=== PATIENT | female | born 1955 | race Caucasian/White ===

== ENCOUNTER → 2024-07-15 | Outpatient (CLI) | payer SELFPAY ==
--- NOTE | 2024-07-15 06:52 | CT_ITS ---
CT angiogram of the abdominal aorta with bilateral lower extremity runoff with 3-dimensional reconstructions, with MIP reconstructions Clinical history: LLE PAD, possible atheroembolic event Technique: Multiple helical CT images were obtained from the domes the diaphragms to level of feet after intravenous administration of iodinated contrast with transaxial, coronal and sagittal multiplanar reconstructions. On a separate workstation, 3-dimensional reconstructions were obtained of the arterial vasculature using volume rendering technique and maximal intensity projection technique as per departmental protocol. The protocol utilizes one or more of the following dose reduction techniques: automated exposure control, adjustment of mA and/or kV according to patient size,and/or use of iterative reconstruction technique. RADIATION DOSAGE (If Supplied By Facility): CTDIvol = ( 6.27 ) mGy, DLP = ( 923.06 ) mGycm COMPARISON: No relevant prior comparison study available FINDINGS: LOWER CHEST: Lung bases are clear. No cardiomegaly or pericardial effusion. LIVER: The liver is normal in size, shape, and attenuation. No focal mass. GALLBLADDER AND BILIARY TREE: The gallbladder is normally distended. No gallstones. No gallbladder wall thickening or edema. No pericholecystic fluid. No intra- or extrahepatic biliary ductal dilation. PANCREAS: No focal cystic or solid mass. SPLEEN: Normal size without focal cystic or solid mass. ADRENAL GLANDS: No nodules. KIDNEYS AND URETERS: Normal renal size and position. No hydronephrosis or nephrolithiasis. PERITONEUM: No ascites or free air. No other fluid collection. BOWEL: The stomach is unremarkable. Normal caliber small bowel. There is no obstruction. No colonic wall thickening or inflammation. No evidence of acute appendicitis. LYMPH NODES: No enlarged mesenteric or retroperitoneal lymph nodes. URINARY BLADDER: Unremarkable. REPRODUCTIVE ORGANS: No pelvic masses. ABDOMINAL WALL: No discrete abdominal or pelvic wall hernia. Focal lipoma along the right lower chest/upper abdominal wall laterally. This measures 4.1 x 1.5 x 5.7 cm. This overlies the lateral aspect of the right 10th rib. No concerning features. BONES: No lytic or blastic abnormality. Degenerative change throughout the visualized spine. Mild degenerative changes of the hips. Alignment maintained throughout the lower extremities. Degenerative changes at both feet at the midfoot and first metatarsophalangeal joints. There is soft tissue swelling of the lower legs bilaterally, right greater than left. VASCULAR STRUCTURES: There appears to be good opacification and patency of the visualized abdominal aorta. Mild atherosclerotic calcification. There appears to be good opacification and patency of the celiac trunk, superior mesenteric artery. Mild calcification seen at the origin of the celiac axis. There are 2 right and 2 left renal arteries which are patent.. There appears to be good opacification and patency noted of the inferior mesenteric artery. ARTERIAL STRUCTURES OF THE RIGHT LOWER EXTREMITY: Common iliac artery: Appears patent with good opacification. Mild atherosclerotic calcification. External iliac artery: The vessel is patent with focal moderate stenosis along the course.. Internal iliac arteries: Appears patent with good opacification. Moderate atherosclerotic calcification throughout. Common femoral artery: Appears patent with good opacification. Superficial femoral arteries: Appear patent with good opacification. Mild luminal irregularity along the course of the vessel with mild stenosis seen at the distal aspect. Popliteal artery: Appears patent with good opacification. Anterior tibial artery: The vessel is patent throughout the course with multifocal areas of moderate stenosis, most prominent distally.. Posterior tibial artery: The vessel is not opacified at its proximal extent. There is reconstitution of opacification at the level of the distal tibia, extending into the ankle and foot. History opacification appears supplied by a branch from the peroneal artery distally.. Peroneal artery: Appears patent with opacification. ARTERIAL STRUCTURES OF THE LEFT LOWER EXTREMITY: Common iliac artery: Appears patent with good opacification. Moderate atherosclerotic disease with mild stenosis noted. External iliac artery: Appears patent with good opacification. Internal iliac arteries: Appears patent with good opacification. Common femoral artery: Appears patent with good opacification. Superficial femoral arteries: Appear patent with good opacification. There is focal moderate stenosis near the origin of the vessel. Mild luminal irregularity throughout the remainder of the course with multifocal mild stenosis. Popliteal artery: The vessel is patent with focal severe stenosis as seen on series 2 image 187.. Anterior tibial artery: Appears patent with good opacification. Mild luminal irregularity throughout the course with up to mild stenosis at multiple levels. Posterior tibial artery: Not opacified.. Peroneal artery: Not opacified at the origin. Reconstitution of flow at the mid aspect of the lower leg extending to the ankle.. CT/CTA Abd w/Runoff W/WO Contrast IMPRESSION: Bilateral vascular disease. On the right there is moderate stenosis of the external iliac artery. Mild stenosis throughout the superficial femoral artery. Moderate stenosis of the anterior tibial artery distally. Nonopacification of the posterior tibial artery at the proximal aspect with distal reconstitution. On the left there is moderate stenosis at the origin of the superficial femoral artery. Severe popliteal artery stenosis. Nonopacification of the posterior tibial artery throughout its course. Electronically Signed: Tee Jimenez MD at 8:37 EDT ,
[2024-07-15 07:18] LABS: CREATININE FINGERSTICK < 1.0 mg/dL (0.55-1.02); EGFR FINGERSTICK > 60.0000 mL/min (>60)
== END | disposition home or self-care (01) ==
PROVIDERS: PCP Nurse Practitioner Adult Health; Referring Provider Physician Assistant; Visit Provider Physician Assistant
DX: I73.9 Peripheral vascular disease, unspecified (principal)
CPT/HCPCS: 75635; Q9967

== ENCOUNTER 2024-10-03 15:47 | Inpatient (IN) | payer SELFPAY ==
[2024-10-03] VITALS (15 sets, daily range): BP systolic 88–147; BP diastolic 59–110; PULSE 96–179; RESP 13–27; TEMP 36.3–37.2; O2SAT 88–99; BMI 19.1; BMI 23.3; BMI 18.6
--- NOTE | 2024-10-03 16:14 | EKG12_ITS ---
Test Reason : Blood Pressure : */* mmHG Vent. Rate : 160 BPM Atrial Rate : * BPM P-R Int : * ms QRS Dur : 74 ms QT Int : 262 ms P-R-T Axes : * -14 125 degrees QTcB Int : 427 ms Critical Test Result: High HR Atrial fibrillation with rapid ventricular response Minimal voltage criteria for LVH, may be normal variant ( Sung product ) ST & T wave abnormality, consider lateral ischemia Abnormal ECG Confirmed by MAILE BERRIOS, MARTHA ([id number]), publications editor TINY ARRIAGA ([id number]) on 10/04/2024 1:51:01 PM Referred By: Confirmed By: MARTHA GR MD
--- NOTE | 2024-10-03 16:17 | ED.VIS.DYS ---
HPI History of Present Illness Chief Complaint: Shortness of Breath Informant: patient and EMS Narrative Narrative: 69-year-old female is felt short of breath with light activities today. She states her bigger issue is wounds on both of her feet and legs, worse on the left. She has some numbness, they have been seeping for the last few days and the pain is gotten worse, but they have been present for over a year and she has been told by the wound center that they are probably vascular ulcers. She has an appointment with vascular surgery here at [place] for the first time on October 18 but has not seen them yet. She thinks maybe she has Raynaud's with regards to her hands and feet they get cold and blue easily. She is a smoker states she has been trying to quit using nicotine patches. [facility] Medical History Mitral valve prolapse Home Medications ?Medication ?Instructions ?Recorded ?Last Taken ?Type aspirin 325 mg tablet 325 mg PO QDAY 06/24/24 Unknown History atenolol 50 mg tablet 50 mg PO QDAY 06/24/24 Unknown History cyclobenzaprine 10 mg tablet 10 mg PO TID PRN muscle spasm 06/24/24 Unknown History sulfamethoxazole 800 1 tab PO DAILY PRN prevent uti 06/24/24 Unknown History mg-trimethoprim 160 mg tablet Allergy/AdvReac Type Severity Reaction Status Date / Time latex Allergy Intermediate Rash Verified 10/03/24 15:48 Penicillins Allergy Intermediate Rash Verified 10/03/24 15:48 Family History (Updated 06/24/24 @ 10:19 by ALEJANDRO Gutierrez) Other Hypertension Surgical History History of tonsillectomy H/O section Social History adopted: Yes Smoking Status: Current every day smoker tobacco type: cigarettes quit status: has quit before alcohol intake: current details: glass of wine with supper daily substance use type: does not use ROS ROS ED Constitutional Constitutional ED: Denies chills or fever(s) Eyes Eyes: Denies change in vision or diplopia ENT ENT ED: Reports rhinorrhea and other Details: Sinus congestion ; Denies sinus pain or sore throat Cardiovascular Cardiovascular: Reports other Details: Occasional palpitations related to my mitral valve prolapse no worse today ; Denies chest pain or orthopnea Respiratory/Chest Respiratory/Chest: Reports cough, dyspnea and dyspnea on exertion; Denies orthopnea or sputum Gastrointestinal Gastrointestinal: Denies abdominal pain, diarrhea, nausea or vomiting Genitourinary Genitourinary ED: Denies dysuria or hematuria Musculoskeletal Musculoskeletal: Denies back pain or neck pain Integumentary Reports as per HPI and wounds Neurologic Neurologic: Reports paresthesias RLE and LLE; Denies headache(s) or weakness EXAM Physical Exam Const Vital Signs: 10/03/24 15:48 10/03/24 15:53 10/03/24 15:53 Temperature 98.3 F 98.3 F Temperature Source Oral Oral Pulse Rate 166 H 179 H Respiratory Rate 26 H 27 H Respiratory Effort Short of Breath Respiratory Depth Shallow Respiratory Pattern Tachypnea Blood Pressure 147/110 H 147/110 H Blood Pressure Mean 122 122 Pulse Ox 99 94 Oxygen Delivery Method Room Air Room Air Room Air Oxygen Flow Rate (L/min) 10/03/24 16:20 10/03/24 16:53 10/03/24 18:00 Temperature 98.5 F Temperature Source Oral Pulse Rate 132 H 135 H Respiratory Rate 15 18 Respiratory Effort Respiratory Depth Respiratory Pattern Blood Pressure 125/88 H 120/69 Blood Pressure Mean 100 86 Pulse Ox 95 94 95 Oxygen Delivery Method Nasal Cannula Room Air Oxygen Flow Rate (L/min) 2 10/03/24 18:45 10/03/24 18:54 Temperature 98.9 F 98.9 F Temperature Source Oral Pulse Rate 124 H 129 H Respiratory Rate 25 H 18 Respiratory Effort Respiratory Depth Respiratory Pattern Blood Pressure 124/69 H 98/79 Blood Pressure Mean 87 85 Pulse Ox 95 91 Oxygen Delivery Method Oxygen Flow Rate (L/min) Positive well nourished and well developed General Appearance ED: well developed and NAD HEENT Reports moist mucous membranes normocephalic and atraumatic Eyes PERRL and EOMs intact bilaterally Neck full ROM, no lymphadenopathy, supple and no JVD Resp normal respiratory effort Resp Narrative: Diminished throughout otherwise clear Cardio Cardio Narrative: 2+ palpable pulses both radials and femorals. Not able to palpate popliteals or feet bilaterally. Rate: tachycardic Rhythm: abnormal rhythm irregularly irregular GI non-tender and non-distended Auscultation: normoactive bowel sounds Palpation: soft Back/Spine no CVA tenderness General Back: other FROM Extremity General Extremety ED: Yes pulses abnormal and tenderness; Negative for edema General Extremity: pulses abnormal; Negative for edema Neuro oriented x3 and CN's II-XII intact bilaterally Neuro Narrative: Decreased sensation both feet, symmetrically Sensorium / Orientation: awake and alert Motor Exam: strength 5/5 throughout Psych mental status grossly normal Skin Skin Narrative: Severe wounds left lower leg more medially all the way into the calf as well as the foot with some pallor of some of the toes and delayed cap refill. Wounds of the right foot are not as severe but similar appearing. There is nothing so deep that there are subcutaneous structures exposed. Some of the wounds on the left foot are seeping serosanguineous fluid. Sepsis Attestation Sepsis Alert: Yes Sepsis Attestation: Agree w/Sepsis Date exam was performed: 10/03/24 Time exam was performed: 17:30 Possible Source of Sepsis: Skin/soft tissue Sepsis Organ Dysfunction Criteria Present: SBP decrease of more than 40 mmHg and Lactic Acid > 2 mmol/L Fluid Resuscitation Fluid resuscitation indicated?: Yes Fluid Resuscitation ordered: 30 ml/kg fluid bolus ordered (including initial 1L IVFB started by EMS) Sepsis Note Date exam was performed: 10/03/24 Time exam was performed: 18:56 Sepsis Attestation: Sepsis re-evaluation was performed (MAP 85 w/ systolic 98, improved clinically, HR lower on cardizem gtt; other than feet which appear chronically ischemic, cap refill is < 2 sec on extremities, keenly alert; believe low BP 98/79 due to cardizem gtt and not septic shock.responded appropriately to IVF, vasopressors not indicated now.) MDM MDM MDM Narrative Medical decision making narrative: Patient does appear to have secondary infection of what probably are vascular wounds especially of her left lower extremity, it is possible she is septic although clinically she appears relatively well, but she is in A-fib with RVR which was previously unknown to her and she does not have symptoms from the heart rate specifically. In addition to IV fluids, I am giving her some rate control in addition to empiric antibiotics to cover the possibility of MRSA since she has seeping from one of the feet without an obvious abscess, but it could be a purulent infection, as well as the possibility of toxic shock so adding Vancomycin & clindamycin per the sepsis protocol. She has cool cyanosis of many of her fingers and a couple of small wounds that do not appear to be acutely infected, trying to heal, and giving this in her legs, my suspicion is that she has Buerger's disease. She is a heavy smoker. Discussed with vascular Dr. Mancilla, we both saw that she had CT of the abdomen/pelvis with runoffs into the lower extremities in June, consistent with this as well. He recommends repeating that. In the meantime, chest x-ray 1 view on my interpretation negative for pneumonia. Right foot x-ray 3 views of my interpretation no obvious subcutaneous air or osteomyelitis. Same with the left foot on my interpretation. The left lower leg 2 views on my interpretation negative for acute bony involvement or subcutaneous emphysema. Patient was given IV fluids, her lactate is elevated, this could be due to sepsis or ischemia in the legs. Her heart rate did improve with Cardizem and IV fluids, blood pressure did drop 40 points to the 90s transiently, but on repeat it is back up to 125/88. Therefore I do not think she needs to be on pressors but starting her on Cardizem drip. I reviewed the CTA lower extremity imaging. On my interpretation there is flow all the way to the feet on both sides. Lab Data Attestation: I reviewed the patient's lab results. Labs: Laboratory Results - last 24 hr 10/03/24 10/03/24 15:57 16:37 WBC 16.6 H RBC 4.63 Hgb 14.7 Hct 42.2 MCV 91.1 MCH 31.7 MCHC 34.8 RDW Std Deviation 51.5 H RDW Coeff of Lisbeth 15.8 H Plt Count 324 MPV 9.9 Immature Gran % (Auto) 1.400 H Neut % (Auto) 85.6 H Lymph % (Auto) 4.2 L [place] % (Auto) 8.2 Eos % (Auto) 0.2 Baso % (Auto) 0.4 Absolute Neuts (auto) 14.2 H Absolute Lymphs (auto) 0.70 L Nucleated RBC % 0 PT 13.3 INR 1.0 APTT 28.2 Sodium 120 L Potassium 5.7 H Chloride 87 L Carbon Dioxide 21.0 Anion Gap 12 BUN 29 H Creatinine 1.26 H Estim Creat Clear Calc 32.46 Est GFR (MDRD) Af Amer 54 L Est GFR (MDRD) Non-Af 45 L BUN/Creatinine Ratio 23.0 H Glucose 109 H Lactic Acid 2.3 H* Calcium 9.5 Total Bilirubin 0.80 AST 36 ALT 38 Alkaline Phosphatase 196 H Total Creatine Kinase 129 Troponin I High Sens 55 H Total Protein 6.4 Albumin 2.6 L Globulin 3.8 Albumin/Globulin Ratio 0.7 L Urine Color Brown Urine Clarity Cloudy Urine pH 5.0 Ur Specific [place] 1.020 Urine Protein 15 H Urine Glucose (UA) 50 H Urine Ketones 5 H Urine Occult Blood 10 H Urine Nitrite Negative Urine Bilirubin 1 H Urine Urobilinogen 1 H Ur Leukocyte Esterase 25 H Urine RBC 0-5 SEEN Urine WBC 0-5 SEEN Ur Squamous Epith Cells 0-5 SEEN Urine Bacteria RARE Urine Mucus 0 SEEN Radiography Diagnostic Testing: Clinical Impression(s) from Imaging Studies Chest X-Ray 10/03/24 16:45 IMPRESSION: No definite acute or significant abnormality seen. Electronically Signed: Trevor England MD at 17:05 EST Reading Location ID and State: [facility] / [place] , Service support , Foot X-Ray 10/03/24 16:45 IMPRESSION: No acute fracture, dislocation, or focal destructive lesion of the bones. Electronically Signed: Trevor England MD at 17:09 EST Reading Location ID and State: [facility] / [place] , Service support , Foot X-Ray 10/03/24 16:45 IMPRESSION: No acute fracture, dislocation, or focal destructive lesion. There is dorsal soft tissue swelling. Electronically Signed: Trevor England MD at 17:11 EST Reading Location ID and State: [facility] / [place] , Service support , Tibia/Fibula X-Ray 10/03/24 16:45 IMPRESSION: Normal x-ray examination of the tibia and fibula. Electronically Signed: Trevor England MD at 17:13 EST Reading Location ID and State: [facility] / [place] , Service support , Rhythm Strip Rhythm Strip: A-fib Rate: 165 Ectopy: None EKG Initial EKG: Attestation: I personally reviewed and interpreted this EKG as follows: Interpretation: Atrial Fibrillation (w/ RVR) and Non-Specific ST Changes Prior EKG tracings: not available for review Prior: No Prior Management Discussion w/another healthcare provider: Hospitalist and Boy'S Adviser (vascular - [place]) Critical Care Time Critical Care Time: Yes Critical care time (excluding procedures): 30-74 minutes (35 min), Including time spent:, Discussing w/Patient &/or Family/Real Estate Broker, Discussing w/Consultants, Arranging Admission or Transfer and Performing Direct Patient Care at Bedside Discharge Plan Dx/Rx/DC Orders Clinical Impression: Atrial fibrillation with RVR, Sepsis, Wound infection, Peripheral vascular disease of lower extremity with ulceration, Tobacco abuse Disposition Disposition: Acute Care Hospital [facility]
[2024-10-03] MEDS: dilTIAZem 25 MG/5 ML Vial 20 MG IV BOLUS (16:22)
[2024-10-03] MEDS: Ondansetron 4 MG/2 ML Vial IV (16:22)
[2024-10-03] MEDS: 0.9% Normal Saline (1000mL) 1,000 ML 999 ML IV ×2 (16:22→17:41)
[2024-10-03] MEDS: Morphine 4 MG/ML Syringe IV (16:22)
[2024-10-03 16:32] LABS: Absolute Neutrophil Count 14.2 X10^3/uL (2.0-7.7); Basophil# 0.06 X10^3/uL; Basophil% 0.4 % (0-1); Eosinophil# 0.03 X10^3/uL; Eosinophils% 0.2 % (0-5); Hematocrit 42.2 % (37-47); Hemoglobin 14.7 g/dL (12.0-15.0); Lymphocyte % 4.2 % (19-41); Mean Corp Hgb Conc 34.8 g/dL (32-36); Mean Corpuscular Hgb 31.7 pg (27.0-32.0); Mean Corpuscular Volume 91.1 fL (81-99); Mean Platelet Vol. 9.9 fl (6.2-12.0); Monocyte# 1.37 X10^3/uL; Monocyte% 8.2 % (0-10); NRBC Flagged by Analyzer 0 % (0-5); Neutrophil # 14.23 X10^3/uL (2.7-7.7); Neutrophil % 85.6 % (47-70); Platelet Count 324 K/mm3 (150-450); RBC Distribution Width CV 15.8 % (11.6-14.6); RBC Distribution Width SD 51.5 fl (35.1-43.9); Red Blood Count 4.63 M/mm3 (4.2-5.4); White Blood Count 16.6 K/mm3 (4.4-11.0)
[2024-10-03 16:40] LABS: Partial Thromboplast Time 28.2 Seconds (24.1-36.2); Prothrombin Time (Protime)PT. 13.3 SECONDS (11.7-14.9)
[2024-10-03 16:43] LABS: Mucous, Urine 0 SEEN /hpf (<or=2+)
--- NOTE | 2024-10-03 16:45 | RAD_ITS ---
STUDY: X-RAY - RIGHT FOOT CLINICAL: Female, 69 years old. pain/infection TECHNIQUE: 3 view(s) of the foot. COMPARISON: None. FINDINGS: Normal talus, calcaneus, and tarsal bones. Normal visualized subtalar, talonavicular, calcaneocuboid, tarsal and tarsometatarsal articulations. Normal metatarsi. There is degenerative arthrosis of the metatarsophalangeal joint of the hallux . Normal tibial and fibular sesamoid bones. Normal interphalangeal joint of the great toe. Normal phalanges of the great toe. Normal second through fifth metatarsophalangeal joints. Normal interphalangeal joints and phalanges of the lesser toes. There is non-specific soft tissue swelling of the foot. There is no demonstrated fracture. RAD/Foot min 3 Views IMPRESSION: No acute fracture, dislocation, or focal destructive lesion of the bones. Electronically Signed: Trevor England MD at 17:09 EST ,
--- NOTE | 2024-10-03 16:45 | RAD_ITS ---
STUDY: X-RAY CHEST REASON FOR EXAM: Female, 69 years old. sob, cough TECHNIQUE: Single AP portable view of the chest. COMPARISON: None. FINDINGS: The lungs are clear and expanded. There is no demonstrated pleural abnormality. There is borderline cardiomegaly. Normal mediastinum and jayla. Normal visualized pulmonary arteries. Normal visualized aortic arch and descending thoracic aorta. There is mild dextroscoliosis of the thoracic spine. Normal visualized ribs, clavicles, and shoulders. There is no demonstrated abnormality of the visualized soft tissue structures of the upper abdomen. RAD/Chest 1 View (Portable) IMPRESSION: No definite acute or significant abnormality seen. Electronically Signed: Trevor England MD at 17:05 EST ,
--- NOTE | 2024-10-03 16:45 | RAD_ITS ---
STUDY: X-RAY - LEFT FOOT CLINICAL: Female, 69 years old. PAIN/INFECTION TECHNIQUE: 3 view(s) of the foot. COMPARISON: None. FINDINGS: Normal talus, calcaneus, and tarsal bones. Degenerative changes of the visualized subtalar, talonavicular, calcaneocuboid, tarsal and tarsometatarsal articulations. Normal metatarsi. There is degenerative arthrosis of the metatarsophalangeal joint of the hallux . Normal tibial and fibular sesamoid bones. Normal interphalangeal joint of the great toe. Normal phalanges of the great toe. Normal second through fifth metatarsophalangeal joints. Normal interphalangeal joints and phalanges of the lesser toes. There is non-specific soft tissue swelling of the foot. There is no demonstrated fracture. RAD/Foot min 3 Views IMPRESSION: No acute fracture, dislocation, or focal destructive lesion. There is dorsal soft tissue swelling. Electronically Signed: Trevor England MD at 17:11 EST ,
--- NOTE | 2024-10-03 16:45 | RAD_ITS ---
STUDY: X-RAY - LEFT TIBIA AND FIBULA REASON FOR EXAM: Female, 69 years old. pain/infection TECHNIQUE: 2 view(s) of the tibia and fibula were obtained. COMPARISON: None. FINDINGS: Normal visualized tibia. Normal visualized fibula. There is no demonstrated acute fracture. The soft tissue structures are unremarkable. RAD/Tibia & Fibula 2 Views IMPRESSION: Normal x-ray examination of the tibia and fibula. Electronically Signed: Trevor England MD at 17:13 EST ,
[2024-10-03 16:54] LABS: Color, Urine Brown (Yellow); Glucose, Dipstick 50 mg/dl (Normal); Ketone-Dipstick 5 mg/dl (Negative); Leukocyte Esterase-Dipstick 25 /ul (Negative); Nitrite-Dipstick Negative (Negative); Occult Blood-Urine 10 /ul (Negative); Protein-Dipstick 15 mg/dl (Negative); Urine Clarity Cloudy (Clear); Urine Urobilinogen 1 mg/dl (Normal)
[2024-10-03] MEDS: Cefazolin 2 GM in Syringe IV (16:57)
[2024-10-03] MEDS: Clindamycin 900 MG/50 ML BAG 75 MG IV (16:57)
[2024-10-03] MEDS: Vancomycin HCl 1,250 MG in 0.9% Normal Saline (250mL Bag) 250 ML 167 MG IV (16:58)
[2024-10-03 16:59] LABS: ALB/GLOB Ratio 0.7 RATIO (0.9-2.4); AST(SGOT) 36 U/L (15-37); Alanine Aminotransfer ALT/SGPT 38 U/L (13-56); Albumin, Serum 2.6 g/dL (3.2-5.0); Alkaline Phosphatase 196 U/L (45-117); Anion Gap 12 (5-15); BUN 29 mg/dL (7-18); CPK Total, Creatine Kinase 129 U/L (26-192); Calcium,Total 9.5 mg/dL (8.5-10.1); Chloride 87 mmol/L (98-107); Creatinine, Serum 1.26 mg/dL (0.55-1.02); EST Glomerular Filtration Rate 45 mL/min (>60); Est Glom Filt Rate - Afr Amer 54 mL/min (>60); Estimated Creatinine Clearance 32.46 ml/min; Globulin 3.8 g/dL (2.2-4.2); Glucose 109 mg/dL (74-106); Lactic Acid 2.3 mmol/L (0.4-1.9); Potassium 5.7 mmol/L (3.5-5.1); Protein, Total 6.4 g/dL (6.4-8.2); Sodium Level 120 mmol/L (136-145); Troponin-I HS 55 pg/mL (3.0-54.0)
[2024-10-03 17:13] LABS: Urine Bilirubin Dipstick 1 mg/dL (Negative)
[2024-10-03 17:17] LABS: Red Blood Cells-Urine 0-5 SEEN /hpf (0-5); Squamous Epithelial Cells - UA 0-5 SEEN /hpf (5-10); White Blood Cells 0-5 SEEN /hpf (0-5)
[2024-10-03 17:18] LABS: Bacteria RARE /hpf (None Seen)
--- NOTE | 2024-10-03 17:50 | CT_ITS ---
STUDY: CTA OF THE LOWER EXTREMITY PATIENT DEMOGRAPHICS: Female, 69 years old. REASON FOR EXAM: BLE pain, wounds, ischemia TECHNIQUE: Axial CT angiography multi-detector data acquisition was obtained from the to the following intravenous administration of IV 75mL [id number]-[id number]. Axial images and MIP images were reconstructed from the axial data set. Post-processing of the angiographic images was performed, with multiplanar reformation and 3D reconstruction. The protocol utilizes one or more of the following dose reduction techniques: automated exposure control, adjustment of mA and/or kV according to patient size,and/or use of iterative reconstruction technique. RADIATION DOSAGE (If Supplied By Facility): CTDIvol = ( 8.42 ) mGy, DLP = ( 845.37 ) mGycm TECHNICAL LIMITATIONS: None. COMPARISON: July 15, 2024 Descriptors of Narrowing: None (0%) Mild (< 50%) Moderate (50-70%) Severe (70-90%) Subtotal/Total Occlusion (90-100%) Non-Evaluable (technically non-diagnostic) FINDINGS: Diffusely calcified abdominal aorta without hemodynamically significant stenosis or aneurysm. Patent major abdominal arteries. Patent bilateral common iliac arteries with atherosclerotic calcifications. Mildly focal intraluminal thrombus in the left common iliac artery. Stable moderate right external iliac stenosis. Right common iliac artery: No significant narrowing. Right external iliac artery: No significant narrowing. Right internal iliac artery: No significant narrowing. Left common iliac artery: No significant narrowing. Left external iliac artery: No significant narrowing. Left internal iliac artery: No significant narrowing. Right common femoral artery: No significant narrowing. Right profundus femoris: No significant narrowing. Right superficial femoral: No significant narrowing. Right popliteal artery: No significant narrowing. Right tibioperoneal trunk: No significant narrowing. Right anterior tibial artery: Mild stenosis proximally. Right posterior tibial artery: Occluded distally with reconstitution just above the ankle. Right peroneal artery: No significant narrowing. Left common femoral artery: No significant narrowing. Left profundus femoris: No significant narrowing. Left superficial femoral: Stable moderate to severe distal luminal narrowing. Left popliteal artery: Severe stenosis. Left tibioperoneal trunk: Occluded. Left anterior tibial artery: No significant narrowing. Left posterior tibial artery: Occluded. Left peroneal artery: Occluded proximally with reconstitution at the mid calf level. Urinary bladder: Normal in appearance. Gastrointestinal: No gastric abnormality is identified. The small bowel is normal in caliber. The colon is normal in caliber. There is no free fluid or free air in the abdomen or pelvis. Lymph nodes: No significantly enlarged lymph nodes are seen. Bones: No suspicious osseous findings. Overlying soft tissues: Unremarkable. CT/CTA Abd w/Runoff W/WO Contrast IMPRESSION: No evidence of significant stenosis. Electronically Signed: Zhou Alan DO at 19:14 [facility] ,
--- NOTE | 2024-10-03 18:32 | ED.RN ---
CALLED, UPDATE PROVIDED.
--- NOTE | 2024-10-03 18:43 | ECHOD_ITS ---
Reason For Study: Afib, Aflutter Procedure This was a 2D Doppler, Color Flow transthoracic echocardiogram. Exam performed portable in patient room. Left Ventricle Normal LV size. The estimated ejection fraction is 62 %. No regional wall motion abnormalities noted. Right Ventricle Normal RV size. Normal systolic function. Atria The left atrium is moderately enlarged. Normal right atrium. Mitral Valve There is moderate to severe mitral annular calcification. Mild (1+) eccentric mitral valve insufficiency. Tricuspid Valve Normal tricuspid valve. Mild tricuspid valve insufficiency. Pulmonary artery systolic pressure is 35 mmHg. Aortic Valve Trisinus/trileaflet aortic valve. Pulmonic Valve Normal pulmonic valve. Great Vessels Normal aortic root. The pulmonary artery is normal size. Inferior vena cava collapse with respiration. Pericardium/Pleural No pericardial effusion. MMode/2D Measurements & Calculations LVIDd: 3.7 cm IVSd: 1.1 cm asc Aorta Diam: 3.2 cm LVIDs: 2.0 cm LVPWd: 1.2 cm FS: 46.7 % LAV(MOD-bp): 88.6 ml LVAd ap4: 12.4 cm2 SV(MOD-sp4): 16.9 ml LAV(MOD-bp) Indexed: 60.2 ml/m2 LVLd ap4: 4.6 cm SI(MOD-sp4): 11.5 ml/m2 LAV(MOD-sp2): 78.7 ml EDV(MOD-sp4): 27.6 ml LAV(MOD-sp4): 96.7 ml EDV(sp4-el): 28.5 ml LVAs ap4: 7.1 cm2 LVLs ap4: 4.1 cm ESV(MOD-sp4): 10.7 ml ESV(sp4-el): 10.7 ml EF(MOD-sp4): 61.4 % EF(sp4-el): 62.5 % SV(sp4-el): 17.9 ml LA A4 area: 27.2 cm2 LA dimension(2D): 5.6 cm RA A4 area: 15.8 cm2 TAPSE: 1.8 cm Doppler Measurements & Calculations MV E max jc: 111.8 cm/sec Lat Peak E' Jc: 7.6 cm/sec Med Peak E' Jc: 6.0 cm/sec E/E' lat: 14.7 E/E' med: 18.5 Ao V2 max: 165.6 cm/sec LV V1 max: 124.0 cm/sec PA V2 max: 88.3 cm/sec Ao max P.1 mmHg LV V1 max P.3 mmHg Ao V2 mean: 120.2 cm/sec Ao mean P.5 mmHg Ao V2 VTI: 22.5 cm TR max jc: 281.8 cm/sec TR max P.8 mmHg ECHO/Echo Complete Interpretation Summary Normal LV size. The estimated ejection fraction is 62 %. No regional wall motion abnormalities noted. Echogenic material noted at the base of the ventricular septum mobile measuring at least 0.5 x 0.4 cm and a vegetation cannot be completely excluded Ordering Physician: Ruth Ann Hi Referring Physician: Fei Weaver Performed By: Yamilka Paniagua, JUDI, RVT
--- NOTE | 2024-10-03 18:44 | HP.PCM.HOS_ITS ---
HPI - General General Date of Admission: 10/03/24 Date of Service: 10/03/24 Chief Complaint: Shortness of breath HPI Narrative MICHELINE CLEMONS, is a 69 F who presented to the emergency department at [facility] with a chief complaint of shortness of breath. Patient reported on presentation that she felt short of breath with light activities today but reported her bigger issue is wounds on both of her legs and feet worse on the left than the right. Patient states she has had wounds for some time however they have been slowly worsening. It appears that she saw vascular surgery on 06/24/2024 at which time she reported that the wound started about 3 months ago. At that time she was having worsening pain and redness/purple discoloration of her foot on the left side and then redness progressing up her left leg. She had been seen by urgent care and was diagnosed with cellulitis and then treated with oral antibiotics which resolved the redness proximally. Her PCP then prescribed another round of Keflex which she was taking at that time of evaluation. She reported significant hypersensitivity at that time and was still smoking at least a pack of cigarettes daily. She also reported a possible history of paroxysmal atrial fibrillation. At that time further investigation was recommended with a CTA of the abdomen pelvis with runoff. This was ordered however patient never followed up. She was also started on Pletal, rosuvastatin and instructed to continue to take aspirin and Plavix. She was refilled with tramadol at that time for pain. Unfortunately she was lost to follow-up. At the presentation, she reports significant pain in bilateral lower extremities left greater than right with significant wounds and hypersensitivity. When I saw, her she denied any shortness of breath, nausea, vomiting, diarrhea, or chest pain. She did indicate she was trying to decrease her tobacco use and per discussion does drink about 8 ounces of alcohol daily. She states she is gone several days without drinking and never had any withdrawal symptoms. She states overall her p.o. intake has been significantly lower than typical for her. Vital signs on presentation demonstrated a temperature of 98.3, heart rate 166 and was noted to be A-fib with RVR, blood pressure 147/110, respiratory rate was 26 and pulse ox was 99% on room air. CBC shows a significant leukocytosis with a white count of 16.6 and a left shift having an 85.6% neutrophilia. Coags were overtly unremarkable. Her chemistry panel showed a sodium of 120, potassium 5.7, chloride 87, BUN was 29 with a serum creatinine of 1.26 (baseline unknown) glucose was 109. Lactic acid was 2.3. Liver functions were unremarkable. Initial troponin was 55. Imaging of the foot and ankle was unremarkable other than soft tissue abnormalities. Chest x-ray showed no significant acute abnormality. CTA with runoff showed multiple areas with occlusion or stenosis on the left side with less significant disease on the right. EKG was A-fib with RVR but no signs of acute ischemia. [facility] Medical History (Updated 10/03/24 @ 20:[address] Ruth Ann Hi, DO) Alcohol abuse Peripheral vascular disease Tobacco use Mitral valve prolapse Home Medications ?Medication ?Instructions ?Recorded ?Last Taken ?Type aspirin 325 mg tablet 325 mg PO QDAY 06/24/24 Unknown History atenolol 50 mg tablet 50 mg PO QDAY 06/24/24 Unknown History cyclobenzaprine 10 mg tablet 10 mg PO TID PRN muscle spasm 06/24/24 Unknown History sulfamethoxazole 800 1 tab PO DAILY PRN prevent uti 06/24/24 Unknown History mg-trimethoprim 160 mg tablet Allergy/AdvReac Type Severity Reaction Status Date / Time latex Allergy Intermediate Rash Verified 10/03/24 15:48 Penicillins Allergy Intermediate Rash Verified 10/03/24 15:48 Family History (Updated 06/24/24 @ 10:19 by ALEJANDRO Gutierrez) Other Hypertension Surgical History History of tonsillectomy H/O section Social History adopted: Yes Smoking Status: Current every day smoker tobacco type: cigarettes quit status: has quit before alcohol intake: current details: glass of wine with supper daily substance use type: does not use ROS Constitutional Constitutional: Reports change in weight, fatigue and weakness; Denies anorexia, chills, fever(s), malaise, night sweats or other Eyes Eyes: Denies blurry vision, change in eye color, change in vision, discharge from eye(s), double vision, erythema, eye pain, loss of vision or other ENT HEENT: Denies abnormal hearing, dysphagia, ear pain, epistaxis, headache(s), hearing loss, nasal congestion, nasal discharge, post nasal drip, sinus pressure, sore throat or other Cardiovascular Cardiovascular: Reports palpitations and rapid heart rate; Denies chest pain, claudication, dyspnea on exertion, edema, lightheadedness, orthopnea, paroxysmal nocturnal dyspnea, syncope or other Respiratory/Chest Respiratory/Chest: Denies cough, dyspnea, excessive phlegm production, hemoptysis, productive cough, shortness of breath at rest, shortness of breath with exertion, wheezing or other Gastrointestinal Gastrointestinal: Denies abdominal pain, coffee ground emesis, constipation, diarrhea, dyspepsia, hematemesis, hematochezia, loose stools, melena, nausea, vomiting or other Genitourinary Genitourinary: Denies burning urination, difficulty urinating, dysuria, hematuria, nocturia, urinary frequency, urinary hesitancy, urinary incontinence, urinary urgency or other Musculoskeletal Musculoskeletal: Reports other Details: Bilateral lower extremity pain left greater than right ; Denies arthralgias, back pain, joint pain, joint stiffness, joint swelling, myalgias or neck pain Neurologic Neurologic: Reports paresthesias RLE and LLE Psychiatric Psychiatric: Reports anxiety and depression; Denies homicidal ideation, suicidal ideation or other Endocrine Endocrinology: Denies change in body appearance, cold intolerance, excessive sweating, heat intolerance, polydipsia, polyuria or other Hematologic/Lymphatic Hematologic/Lymphatic: Denies anemia, easy bleeding, easy bruising, lymphadenopathy or other Allergic/Immunologic Allergic/Immunologic: Denies rhinitis, hives, eczemia, asthma or other Vital Signs Vital Signs Vital Signs: 10/03/24 15:48 10/03/24 15:53 10/03/24 15:53 Temperature 98.3 F 98.3 F Temperature Source Oral Oral Pulse Rate 166 H 179 H Respiratory Rate 26 H 27 H Respiratory Effort Short of Breath Respiratory Depth Shallow Respiratory Pattern Tachypnea Blood Pressure 147/110 H 147/110 H Blood Pressure Mean 122 122 Pulse Ox 99 94 Oxygen Delivery Method Room Air Room Air Room Air Oxygen Flow Rate (L/min) 10/03/24 16:20 10/03/24 16:53 10/03/24 18:00 Temperature 98.5 F Temperature Source Oral Pulse Rate 132 H 135 H Respiratory Rate 15 18 Respiratory Effort Respiratory Depth Respiratory Pattern Blood Pressure 125/88 H 120/69 Blood Pressure Mean 100 86 Pulse Ox 95 94 95 Oxygen Delivery Method Nasal Cannula Room Air Oxygen Flow Rate (L/min) 2 Weight Weight: 48.8 kg Body Mass Index (BMI) 19.1 Physical Exam Const alert, oriented x3 and average body habitus; Negative for no apparent distress, healthy appearing or well nourished Constitutional Narrative: Older, white female, lying in bed, appears malnourished, appears older than stated age, mild distress due to pain but does not appear toxic, interacts appropriately General Appearance: cooperative HEENT normocephalic, head/scalp atraumatic and hearing grossly normal bilaterally HEENT Narrative: Mucous membranes are dry, dentition is poor, Mallampati 2, no thrush Eyes PERRL, EOMs intact bilaterally and conjunctivae normal Eyes Narrative: No scleral icterus Neck no lymphadenopathy and supple Neck Narrative: Trachea midline, no thyroid enlargement Resp normal respiratory effort, no retractions, no use of accessory muscles and No clear to auscultation bilaterally Resp Narrative: Diffusely diminished with scattered end expiratory wheeze intermittently Auscultation: wheezes; Negative for rales or rhonchi Cardio S1 normal heart sound, S2 normal heart sound, no murmurs, no rub, no gallops and no clicks Cardio Narrative: Tachycardia with irregularly irregular rhythm GI normal to inspection, nondistended, normoactive bowel sounds, soft to palpation and non-tender Extremity Extremity Narrative: Bilateral lower extremity edema left greater than right, patient with significant discoloration bilateral lower extremities left greater than right with sluggish cap refill and diminished pedal pulses bilaterally, radial pulses are 2+, no cyanosis or clubbing Skin Skin Narrative: Severe wounds left lower extremity, mild wounds right lower extremity and bilateral hands with minimal wounds noted Neuro oriented x3, moves all extremities and no focal motor deficits Neuro Narrative: Bilateral legs left greater than right with hypersensitivity Speech: speech normal Psych Psych Narrative: Very pleasant interacts appropriately and thanked me for care Mood & Affect: anxious Results Lab / Micro Data 10/03/24 15:57 10/03/24 19:06 Labs: Laboratory Results - last 24 hr 10/03/24 15:57: WBC 16.6 H, RBC 4.63, Hgb 14.7, Hct 42.2, MCV 91.1, MCH 31.7, MCHC 34.8, RDW Std Deviation 51.5 H, RDW Coeff of Lisbeth 15.8 H, Plt Count 324, MPV 9.9, Immature Gran % (Auto) 1.400 H, Neut % (Auto) 85.6 H, Lymph % (Auto) 4.2 L, [place] % (Auto) 8.2, Eos % (Auto) 0.2, Baso % (Auto) 0.4, Absolute Neuts (auto) 14.2 H, Absolute Lymphs (auto) 0.70 L, Nucleated RBC % 0, PT 13.3, INR 1.0, APTT 28.2, Sodium 120 L, Potassium 5.7 H, Chloride 87 L, Carbon Dioxide 21.0, Anion Gap 12, BUN 29 H, Creatinine 1.26 H, Estim Creat Clear Calc 32.46, Est GFR (MDRD) Af Amer 54 L, Est GFR (MDRD) Non-Af 45 L, BUN/Creatinine Ratio 23.0 H, G lucose 109 H, Lactic Acid 2.3 H*, Calcium 9.5, Total Bilirubin 0.80, AST 36, ALT 38, Alkaline Phosphatase 196 H, Total Creatine Kinase 129, Troponin I High Sens 55 H, Total Protein 6.4, Albumin 2.6 L, Globulin 3.8, Albumin/Globulin Ratio 0.7 L 10/03/24 16:37: Urine Color Brown, Urine Clarity Cloudy, Urine pH 5.0, Ur Specific Bonnie 1.020, Urine Protein 15 H, Urine Glucose (UA) 50 H, Urine Ketones 5 H, Urine Occult Blood 10 H, Urine Nitrite Negative, Urine Bilirubin 1 H, Urine Urobilinogen 1 H, Ur Leukocyte Esterase 25 H, Urine RBC 0-5 SEEN, Urine WBC 0-5 SEEN, Ur Squamous Epith Cells 0-5 SEEN, Urine Bacteria RARE, Urine Mucus 0 SEEN Rhythm Strip Rhythm Strip: A-fib Rate: 165 Ectopy: None Imaging Radiology Impression Chest X-Ray 10/03/24 16:45 IMPRESSION: No definite acute or significant abnormality seen. Electronically Signed: Trevor Englnad MD at 17:05 EST , Foot X-Ray 10/03/24 16:45 IMPRESSION: No acute fracture, dislocation, or focal destructive lesion of the bones. Electronically Signed: Trevor England MD at 17:09 EST , Foot X-Ray 10/03/24 16:45 IMPRESSION: No acute fracture, dislocation, or focal destructive lesion. There is dorsal soft tissue swelling. Electronically Signed: Trevor England MD at 17:11 EST , Tibia/Fibula X-Ray 10/03/24 16:45 IMPRESSION: Normal x-ray examination of the tibia and fibula. Electronically Signed: Trevor England MD at 17:13 EST , Assessment & Plan Assessment/Plan (1) Peripheral vascular disease of lower extremity with ulceration: (2) Wound infection: (3) Sepsis: (4) Atrial fibrillation with RVR: (5) Hyponatremia: (6) Elevated serum creatinine: (7) Hyperkalemia: (8) Lactic acidosis: (9) Elevated troponin: (10) Dehydration: (11) Leukocytosis: PLAN: Plan Sepsis secondary to bilateral lower extremity wound infection from vascular disease -Meet sepsis criteria with tachycardia, suspected JOHNATHON, lactic acidosis and source -Sepsis order set utilized -Cycle lactate per protocol -Abnormal CTA with runoff of abdomen and pelvis -Heparin drip for now -Broad-spectrum antibiotics with vancomycin and cefepime to cover MRSA and Pseudomonas -Culture wounds -MRSA PCR for wound -Blood cultures are pending -Vascular surgery consult--> case was discussed with Dr. Mancilla by the emergency department -Podiatry consult--> I discussed case with Dr. Garrett -Wound care consultation -Neurovascular checks -Currently no signs of compartment syndrome -Check CPK -UA is suggestive of possibly mild rhabdo with positive occult blood but no RBCs -Patient received 30 cc/kg body weight -Upon reevaluation blood pressure remained stable despite utilization of Cardizem drip for A-fib with RVR A-fib with RVR -There is documentation in her note with Dr. Mancilla that she may have a history of this however she is not medicated as such -Check echocardiogram -Check a.m. TSH -Continue Cardizem drip -Heparin drip started for this and the above -Will need to transition to Eliquis 5 mg p.o. twice daily when appropriate per discussion with surgical consultations Elevated serum creatinine--> possibly JOHNATHON but baseline unknown -Creatinine on presentation is 1.26 -Highly suspect this is JOHNATHON is her body habitus suggest that she should have an extremely low serum creatinine -Will hydrate and reevaluate -If no improvement may need further workup -Patient clinically appears dehydrated -CPK is pending Hyponatremia -Highly suspect hypovolemic hyponatremia as patient appears to be dry -Will treat with IV fluids and reassess -Check urine osmolality and urine sodium -Check uric acid -Check serum osmolality -UA is consistent with dehydration as well Hyperkalemia -CPK is pending -IV fluids for hydration as patient appears to be markedly dehydrated -Repeat lab Lactic acidosis -Secondary to the above -Cycle per sepsis protocol Elevated troponin -Mild at 55 -Cycle cardiac enzymes -Check echocardiogram Leukocytosis -Left shift present -Suspect related to the above -Antibiotics as above -Cultures pending Peripheral vascular disease -Patient was placed on Plavix, aspirin, Pletal, and rosuvastatin -Does not appear to be taking any of these -Heparin drip for now -Start aspirin 81 mg daily and will hold off her Plavix for now -Await vascular surgery input but would like to avoid triple therapy if possible -Check lipids -Start atorvastatin 80 mg Generalized weakness/debility -PT/OT consultation -Social work/case management consultation as I do highly anticipate patient will likely need placed at discharge Tobacco abuse -Highly suspect patient has COPD but no previous diagnostic tests -As needed albuterol -DuoNebs scheduled -Recommend cessation -Nicotine patch available Alcohol use -Patient uses alcohol regularly and states she drinks about 8 ounces of wine daily--> suspect there may be more in 8 ounces -Patient states she has gone days without utilization and denies any withdrawal -Start CIWA with no as needed medications or phenobarbital taper at this time -CIWA ordered every 4 hours DVT prophylaxis -Continue heparin drip for now CODE STATUS -Full code as verified at the time of admission Sepsis Attestation Sepsis Alert: Yes Sepsis Attestation: Agree w/Sepsis Date exam was performed: 10/03/24 Time exam was performed: 19:31 Possible Source of Sepsis: Skin/soft tissue Sepsis Organ Dysfunction Criteria Present: Lactic Acid > 2 mmol/L Supportive Findings: tachycardia, leukocytosis, source Fluid Resuscitation Fluid resuscitation indicated?: Yes Fluid Resuscitation ordered: 30 ml/kg fluid bolus ordered Amount of fluid ordered: 2,000 Charges/Coding Visit Charges Inpatient E&M: 98382 Init Hosp L3
[2024-10-03] MEDS: Diltiazem 125 MG in Dextrose 5%-Water (100mL Bag) 100 ML IV (18:45)
--- NOTE | 2024-10-03 19:37 | PHA.PHARE_ITS ---
Consult Antibiotic Management Pharmacy has been consulted to manage selected antibiotic: Vancomycin Type of Intervention Type of Consult: New start Suspected Infection Suspected Infection: Skin/Soft tissue Prior Doses of Antibiotics Prior Doses of Antibiotics Received/Current Regimen: 10/03/24 @ 1652 Dosing Weight Weight used for dosin.8 kg Estimated Creatinine Clearance Estimated Creatinine Clearance: 32.4 Goal Trough Goal Trough: 15-20 mcg/mL Pharmacy Plan for Drug Dosing Pharmacy Plan for Drug Dosing: Start Vancomycin 750mg every 24 hours. STart 10/04/24 @ 1700 Pharmacy Service will continue to monitor and adjust dosing as required. Follow-Up Labs Follow-Up Labs: Trough: Vancomycin Date/Time Labs Ordered Labs to be done on [date and time ordered]: 10/06/24 @ 1639
[2024-10-03 19:44] LABS: Anion Gap 9 (5-15); BUN 25 mg/dL (7-18); BUN/Creat Ratio 25.5 RATIO (10-20); Calcium,Total 7.5 mg/dL (8.5-10.1); Chloride 97 mmol/L (98-107); Creatinine, Serum 0.98 mg/dL (0.55-1.02); EST Glomerular Filtration Rate 60 mL/min (>60); Est Glom Filt Rate - Afr Amer 72 mL/min (>60); Estimated Creatinine Clearance 44.82 ml/min; Glucose 81 mg/dL (74-106); Potassium 4.2 mmol/L (3.5-5.1); Sodium Level 127 mmol/L (136-145); Uric Acid 5.3 mg/dL (2.6-6.0)
[2024-10-03 20:01] LABS: Osmolality, Serum 275 mOsm/KG (280-301)
[2024-10-03 20:13] LABS: Troponin-I HS 50 pg/mL (3.0-54.0)
[2024-10-03 20:21] LABS: International Normalized Ratio 1.2; Prothrombin Time (Protime)PT. 15.1 SECONDS (11.7-14.9)
[2024-10-03 20:22] LABS: Reflex Lactate? Y
[2024-10-03 20:22] LABS: Partial Thromboplast Time 31.3 Seconds (24.1-36.2)
[2024-10-03] MEDS: Heparin Injection (Vial) 5,000 UNIT/ML VIAL 3000 UNIT IV (20:24)
[2024-10-03] MEDS: HEPARIN/D5w 25,000 UNITS 25,000 UNITS/250 ML IV.SOLN. 5.5 UNITS CONT INF (20:26)
--- NOTE | 2024-10-03 20:52 | PCM.HOSP.N ---
Sepsis Attestation Sepsis Note Date exam was performed: 10/03/24 Time exam was performed: 20:53 Sepsis Attestation: Sepsis re-evaluation was performed (Blood pressure remained stable)
[2024-10-03] MEDS: Cefepime HCl 1 GM in 0.9% Normal Saline (50mL MB+) 50 ML IV (22:12)
[2024-10-03 22:27] LABS: CPK Total, Creatine Kinase 127 U/L (26-192); Troponin-I HS 49 pg/mL (3.0-54.0)
[2024-10-03] MEDS: Acetaminophen 500 MG Tablet 1000 MG PO (22:31)
[2024-10-03] MEDS: Atorvastatin Calcium 80 MG Tablet PO (22:32)
[2024-10-03 22:36] LABS: Lactic Acid 3.5 mmol/L (0.4-1.9)
--- NOTE | 2024-10-03 23:21 | NURSING ---
Patient placed on bedpan to attempt to void on her own. Voided 50 mL. Patient bladder scanned post-void for >1,100 mL. Ríos catheter order obtained and ríos inserted.
[2024-10-03 23:35] LABS: Urine Sodium 19 mmol/L (Not Establ.)
[2024-10-04] VITALS (28 sets, daily range): BP systolic 91–111; BP diastolic 59–79; PULSE 70–113; RESP 10–22; TEMP 36–36.6; O2SAT 91–100
[2024-10-04] LABS: Osmolality, Urine 427 mOsm/KG
[2024-10-04] MEDS: oxyCODONE 5 MG Tablet PO ×4 (00:03→21:47)
[2024-10-04] MEDS: DiphenhydrAMINE 50 MG/ML Syringe 25 MG IV (01:36)
[2024-10-04 02:55] LABS: Absolute Lymphocyte Count 0.45 X10^3/uL (0.83-4.51); Absolute Neutrophil Count 15.7 X10^3/uL (2.0-7.7); Basophil# 0.04 X10^3/uL; Basophil% 0.2 % (0-1); Eosinophil# 0.04 X10^3/uL; Eosinophils% 0.2 % (0-5); Hematocrit 33.9 % (37-47); Hemoglobin 11.6 g/dL (12.0-15.0); Lymphocyte # 0.45 X10^3/ul (0.83-4.51); Lymphocyte % 2.5 % (19-41); Mean Corp Hgb Conc 34.2 g/dL (32-36); Mean Corpuscular Volume 93.4 fL (81-99); Mean Platelet Vol. 9.8 fl (6.2-12.0); Monocyte# 1.73 X10^3/uL; Monocyte% 9.5 % (0-10); NRBC Flagged by Analyzer 0 % (0-5); Neutrophil # 15.67 X10^3/uL (2.7-7.7); Neutrophil % 86.4 % (47-70); POSITIVE DIFFERENTIAL YES; Platelet Count 246 K/mm3 (150-450); RBC Distribution Width CV 15.9 % (11.6-14.6); RBC Distribution Width SD 53.1 fl (35.1-43.9); Red Blood Count 3.63 M/mm3 (4.2-5.4); White Blood Count 18.1 K/mm3 (4.4-11.0)
[2024-10-04] MEDS: Diltiazem 125 MG in Dextrose 5%-Water (100mL Bag) 100 ML 15 MG IV (03:00)
[2024-10-04 03:20] LABS: ALB/GLOB Ratio 0.9 RATIO (0.9-2.4); AST(SGOT) 27 U/L (15-37); Alanine Aminotransfer ALT/SGPT 27 U/L (13-56); Albumin, Serum 2.1 g/dL (3.2-5.0); Alkaline Phosphatase 138 U/L (45-117); Anion Gap 9 (5-15); BUN 24 mg/dL (7-18); BUN/Creat Ratio 28.3 RATIO (10-20); Calcium,Total 7.9 mg/dL (8.5-10.1); Chloride 98 mmol/L (98-107); Cholesterol 132 mg/dL (200); Creatinine, Serum 0.85 mg/dL (0.55-1.02); EST Glomerular Filtration Rate 71 mL/min (>60); Est Glom Filt Rate - Afr Amer 86 mL/min (>60); Estimated Creatinine Clearance 47.04 ml/min; Globulin 2.4 g/dL (2.2-4.2); Glucose 76 mg/dL (74-106); High Density Lipoprotein 58 mg/dL; Magnesium 2.1 mg/dL (1.6-2.6); Phosphorus 3.3 mg/dL (2.5-4.9); Potassium 3.9 mmol/L (3.5-5.1); Protein, Total 4.5 g/dL (6.4-8.2); Sodium Level 128 mmol/L (136-145); Triglycerides 75 mg/dL; Very Low Density Lipoprotein 15 mg/dL (5-40)
[2024-10-04 03:31] LABS: Differential Indicated SCAN CRITERIA MET
[2024-10-04 03:39] LABS: Partial Thromboplast Time 209.2 Seconds (24.1-36.2)
[2024-10-04 04:04] LABS: Differential Comment SCANNED
[2024-10-04] MEDS: Acetaminophen 500 MG Tablet 1000 MG PO ×3 (06:31→21:46)
[2024-10-04] MEDS: Ipratropium/Albuterol Sulfate 3 ML AMPUL.NEB INHALATION ×2 (07:02→19:51)
--- NOTE | 2024-10-04 07:51 | ART_ITS ---
Reason For Study: BLE Wounds Procedure A bilateral lower extremity continuous wave Doppler with analog waveform analysis and ankle brachial indexes. Left Segmental Pressures Left brachial= 100mmHg. Left dorsalis pedis artery = 45mmHg. Right Segmental Pressures Right posterior tibial artery = 107mmHg. Right dorsalis pedis artery = 93mmHg. The right posterior tibial artery waveforms are biphasic. The right dorsalis pedis waveforms are monophasic. Indices The right ankle brachial index by the dorsalis pedis is 0.93. The right ankle brachial index by the posterior tibial artery is 1.07. The left ankle brachial index by the dorsalis pedis is 0.45. Unable to acquire Lt [employer] doppler/pressure due to open wounds. Preliminary reported to Briseida Morales - Vascular PA. VL/Ankle Brachial Index Interpretation Summary Right FARSHAD 1.07, normal. Doppler/PVR waveforms of the right ankle mildly diminis hed at rest. Left FARSHAD 0.45, severe arterial insufficiency. Doppler/PVR waveforms of the left ankle severely diminished at rest. Ordering Physician: Briseida Morales Referring Physician: Fei Weaver Performed By: Brenda Ríos RVT
--- NOTE | 2024-10-04 07:54 | PN.HOSP_ITS ---
Reason for Visit Reason for Visit: Diagnoses Sepsis, unspecified organism (10/03/24) Elevated white blood cell count, unspecified (10/03/24) Dehydration (10/03/24) Hypo-osmolality and hyponatremia (10/03/24) Acidosis, unspecified (10/03/24) Hyperkalemia (10/03/24) Unspecified atrial fibrillation (10/03/24) Peripheral vascular disease, unspecified (10/03/24) Local infection of the skin and subcutaneous tissue, unspecified (10/03/24) Non-pressure chronic ulcer of unspecified part of unspecified lower leg with unspecified severity (10/03/24) Other specified abnormal findings of blood chemistry (10/03/24) Other injury of unspecified body region, initial encounter (10/03/24) Subjective Subjective anxious about the PICC line. Objective Data Objective Data Vital Signs: Vital Signs Temp Pulse Resp BP Pulse Ox O2 Del Method O2 Flow Rate 36.4 C L 78 22 H 103/64 92 Room Air 2 10/04/24 04:00 10/04/24 07:02 10/04/24 07:02 10/04/24 07:00 10/04/24 07:02 10/04/24 07:02 10/03/24 16:20 Oxygen Flow Rate (L/min) 2 Oxygen Delivery Method Room Air Weight: 47.7 kg Body Mass Index (BMI) 18.6 Intake & Output: Intake and Output for Last 24 Hours 10/02/24 10/03/24 10/04/24 23:59 23:59 23:59 Intake Total 2451.25 / 2716.25 418.99 / 418.99 Output Total 1300 / 1300 Balance 2451.25 / 1416.25 -881.01 / -881.01 Lab / Micro Data 10/04/24 02:37 10/04/24 02:37 Labs: Laboratory Results - last 24 hr 10/03/24 15:57: WBC 16.6 H, RBC 4.63, Hgb 14.7, Hct 42.2, MCV 91.1, MCH 31.7, MCHC 34.8, RDW Std Deviation 51.5 H, RDW Coeff of Lisbeth 15.8 H, Plt Count 324, MPV 9.9, Immature Gran % (Auto) 1.400 H, Neut % (Auto) 85.6 H, Lymph % (Auto) 4.2 L, Childress % (Auto) 8.2, Eos % (Auto) 0.2, Baso % (Auto) 0.4, Absolute Neuts (auto) 14.2 H, Absolute Lymphs (auto) 0.70 L, Nucleated RBC % 0, PT 13.3, INR 1.0, APTT 28.2, Sodium 120 L, Potassium 5.7 H, Chloride 87 L, Carbon Dioxide 21.0, Anion Gap 12, BUN 29 H, Creatinine 1.26 H, Estim Creat Clear Calc 32.46, Est GFR (MDRD) Af Amer 54 L, Est GFR (MDRD) Non-Af 45 L, BUN/Creatinine Ratio 23.0 H, G lucose 109 H, Lactic Acid 2.3 H*, Uric Acid Cancelled, Calcium 9.5, Total Bilirubin 0.80, AST 36, ALT 38, Alkaline Phosphatase 196 H, Total Creatine Kinase 129, Troponin I High Sens 55 H, Total Protein 6.4, Albumin 2.6 L, Globulin 3.8, Albumin/Globulin Ratio 0.7 L 10/03/24 16:37: Urine Color Brown, Urine Clarity Cloudy, Urine pH 5.0, Ur Specific [place] 1.020, Urine Protein 15 H, Urine Glucose (UA) 50 H, Urine Ketones 5 H, Urine Occult Blood 10 H, Urine Nitrite Negative, Urine Bilirubin 1 H, Urine Urobilinogen 1 H, Ur Leukocyte Esterase 25 H, Urine RBC 0-5 SEEN, Urine WBC 0-5 SEEN, Ur Squamous Epith Cells 0-5 SEEN, Urine Bacteria RARE, Urine Mucus 0 SEEN 10/03/24 19:06: Sodium 127 L, Potassium 4.2, Chloride 97 L, Carbon Dioxide 21.0, Anion Gap 9, BUN 25 H, Creatinine 0.98, Estim Creat Clear Calc 44.82, Est GFR (MDRD) Af Amer 72, Est GFR (MDRD) Non-Af 60, BUN/Creatinine Ratio 25.5 H, Glucose 81, Serum Osmolality 275 L, Uric Acid 5.3, Calcium 7.5 L, Troponin I High Sens 50 10/03/24 19:31: PT 15.1 H, INR 1.2, APTT 31.3 10/03/24 21:52: Lactic Acid 3.5 H*, Total Creatine Kinase 127, Troponin I High Sens 49 10/03/24 23:10: Urine Osmolality 427, Ur Random Sodium 19 10/04/24 02:37: WBC 18.1 H, RBC 3.63 L, Hgb 11.6 L, Hct 33.9 L, MCV 93.4, MCH 32.0, MCHC 34.2, RDW Std Deviation 53.1 H, RDW Coeff of Lisbeth 15.9 H, Plt Count 246, MPV 9.8, Immature Gran % (Auto) 1.200 H, Neut % (Auto) 86.4 H, Lymph % (Auto) 2.5 L, Childress % (Auto) 9.5, Eos % (Auto) 0.2, Baso % (Auto) 0.2, Absolute Neuts (auto) 15.7 H, Absolute Lymphs (auto) 0.45 L, Nucleated RBC % 0, Differential Comment SCANNED, Diff Path Review March, APTT 209.2 H*, Sodium 128 L, Potassium 3.9, Chloride 98, Carbon Dioxide 21.0, Anion Gap 9, BUN 24 H, Creatinine 0.85, Estim Creat Clear Calc 47.04, Est GFR (MDRD) Af Amer 86, Est GFR (MDRD) Non-Af 71, BUN/Creatinine Ratio 28.3 H, Glucose 76, Calcium 7.9 L, Phosphorus 3.3, Magnesium 2.1, Total Bilirubin 0.60, AST 27, ALT 27, Alkaline Phosphatase 138 H, Total Protein 4.5 L, Albumin 2.1 L, Globulin 2.4, Albumin/Globulin Ratio 0.9, Triglycerides 75, Cholesterol 132, LDL Cholesterol 59, VLDL Cholesterol 15, HDL Cholesterol 58, TSH 4.610 H Micro: Microbiology 10/03/24 19:45 Wound - Left Foot Skin and Soft Tissue MRSA/MSSA (PCR - Final Radiography Diagnostic Testing: Radiology Impression Chest X-Ray 10/03/24 16:45 IMPRESSION: No definite acute or significant abnormality seen. Electronically Signed: Trevor England MD at 17:05 EST , Foot X-Ray 10/03/24 16:45 IMPRESSION: No acute fracture, dislocation, or focal destructive lesion of the bones. Electronically Signed: Trevor England MD at 17:09 EST , Foot X-Ray 10/03/24 16:45 IMPRESSION: No acute fracture, dislocation, or focal destructive lesion. There is dorsal soft tissue swelling. Electronically Signed: Trevor England MD at 17:11 EST , Tibia/Fibula X-Ray 10/03/24 16:45 IMPRESSION: Normal x-ray examination of the tibia and fibula. Electronically Signed: Trevor England MD at 17:13 EST , Abdomen/Pelvis CTA 10/03/24 17:50 IMPRESSION: No evidence of significant stenosis. Electronically Signed: Zhou Alan DO at 19:14 EST , Rhythm Strip Rhythm Strip: A-fib Rate: 165 Ectopy: None Physical Exam Const Constitutional Narrative: anxious cachectic. afebrile. HEENT head/scalp atraumatic and moist oral mucous membranes Resp normal respiratory effort, no retractions, no use of accessory muscles and clear to auscultation bilaterally Cardio regular rate, regular rhythm, S1 normal heart sound and S2 normal heart sound GI normal to inspection, nondistended, normoactive bowel sounds, soft to palpation, non-tender and non-distended Extremity Extremity Narrative: bilateral feet wrapped. cyanosis right toes, reed discoloration of left toes. Images by wound care today shows sloughing of the left posterior leg with denuding of skin going down to the heel as well as on the forefoot adjacent to toes. Right foot shows edema and erythema of the right foot. Neuro Sensorium / Orientation: awake and alert Psych Mood & Affect: anxious Assessment & Plan Assessment/Plan (1) Peripheral vascular disease of lower extremity with ulceration: (2) Wound infection: (3) Sepsis: (4) Atrial fibrillation with RVR: (5) Hyponatremia: (6) Elevated serum creatinine: (7) Hyperkalemia: (8) Lactic acidosis: (9) Elevated troponin: (10) Dehydration: (11) Leukocytosis: PLAN: Plan Sepsis * secondary to bilateral lower extremity wound infection from vascular disease * Meet sepsis criteria with tachycardia, suspected JOHNATHON, lactic acidosis and source * Broad-spectrum antibiotics with vancomycin and cefepime to cover MRSA and Pseudomonas * Wound and blood cultrues negative. MRSA PCR wound negative * Patient received 30 cc/kg body weight * podiatry consult. Wound care. A-fib with RVR * Check echocardiogram * on dilt and heparin gtt Hyponatremia * suspect hypovolemic hyponatremia improved with IVF. * Monitor Hyperkalemia * improved with IVF. Elevated troponin * Mild at 55. Resolved. Peripheral vascular disease * Patient was placed on Plavix, aspirin, Pletal, and rosuvastatin. Does not appear to be taking any of these. Heparin drip for now. Start aspirin 81 mg daily and will hold off her Plavix for now. Await vascular surgery input but would like to avoid triple therapy if possible. Check lipids. Start atorvastatin 80 mg Generalized weakness/debility * PT/OT consultation * Social work/case management consultation as I do highly anticipate patient will likely need placed at discharge Alcohol use * [facility] protocol. DVT prophylaxis: not indicated as anticoagulated. CODE STATUS -Full code as verified at the time of admission Charges/Coding Visit Charges Inpatient E&M: 90638 Subs Hosp L2
--- NOTE | 2024-10-04 08:08 | CON.PCM.SX_ITS ---
Assessment & Plan Assessment/Plan (1) Peripheral vascular disease of lower extremity with ulceration: PLAN: Plan CTA shows primarily tibial disease which is consistent with her L foot ulcerations, but which does not adequately account for her calf ulcerations. Calf ulcerations are perhaps more consistent with pressure ulceration and secondary to patient's apparent failure to thrive in her home environment. Will plan for LLE angiogram for further evaluation of her PAD. She may require more proximal amputation, will consult Dr. Velazquez for his evaluation. LLE Angiogram is tentatively scheduled for tomorrow afternoon, will plan to discuss further with patient in the morning if her mental status allows. For now, continue heparin and ASA. No need to hold ASA for angio. 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 HPI Consult Data Date of Consult: 10/04/24 HPI Narrative HPI Narrative: MICHELINE CLEMONS, is a 69 F who presented to [facility] on 10/03/24 with complaints of SOB and BLE ulcerations. Tried to see patient a few times today, initially during PICC placement then when returned later in the afternoon she was very somnolent and not easily arousable for questions. Unable to obtain any history directly from her today. All history is obtained from nursing report and chart review. Patient was seen in our office as an outpatient in June. At that time, she had no ulcerations/wounds but subacute ischemic changes to her left forefoot with associated rest pain. At that time, had ordered a CTA and subsequently recommended LLE angiogram with possible intervention. Unfortunately, she was then lost to follow-up. She presents now with extensive severe ulcerations involving in L toes, foot, and up the posterior, medial, and lateral calf to mid-calf. She also has smaller ulceration to the posterior aspect of the R ankle/calf. She was seen by podiatry with concern that she may need BKA. She has had repeat CTA which showed primarily tibial disease, overall stable from her prior outpatient CTA. Nursing reports that her wounds had animal hair in them. They report that stated patient has been at home taking pain medication and consuming alcohol and overall has been very inactive. She is a smoker. It is also noted that she does not have insurance coverage, did not pursue until recently and reportedly will not be active until October. At the time of her admission, it was noted that she did not appear to be taking the ASA, Plavix, statin, or pletal that had been prescribed. She was noted to be in Afib with RVR, no medical management in place on an outpatient basis. [facility]LY [facility], [facility] Medical History (Updated 10/03/24 @ 20:[address] Ruth Ann Hi DO) Alcohol abuse Peripheral vascular disease Tobacco use Mitral valve prolapse Home Medications ?Medication ?Instructions ?Recorded ?Last Taken ?Type aspirin 325 mg tablet 325 mg PO QDAY 06/24/24 Unknown History atenolol 50 mg tablet 50 mg PO QDAY 06/24/24 Unknown History cyclobenzaprine 10 mg tablet 10 mg PO TID PRN muscle spasm 06/24/24 Unknown History sulfamethoxazole 800 1 tab PO DAILY PRN prevent uti 06/24/24 Unknown History mg-trimethoprim 160 mg tablet Allergy/AdvReac Type Severity Reaction Status Date / Time latex Allergy Intermediate Rash Verified 10/03/24 15:48 Penicillins Allergy Intermediate Rash Verified 10/03/24 15:48 Family History (Updated 06/24/24 @ 10:19 by ALEJANDRO Gutierrez) Other Hypertension Surgical History History of tonsillectomy H/O section Social History adopted: Yes Smoking Status: Current every day smoker tobacco type: cigarettes quit status: has quit before alcohol intake: current details: glass of wine with supper daily substance use type: does not use Physical Exam Narrative somnolent, not arousable for questions or exam wound pictures were reviewed showing extensive LLE ulcerations with overlying eschar involving all of the L toes, L forefoot, L posterior, medial, and lateral calf up to mid calf. The wound edges through the calf do appear viable. There is also ulceration to the posterior R calf/ankle with overlying eschar. Lab / Micro Data 10/04/24 02:37 10/04/24 02:37 Labs: Laboratory Results - last 24 hr 10/03/24 15:57: WBC 16.6 H, RBC 4.63, Hgb 14.7, Hct 42.2, MCV 91.1, MCH 31.7, MCHC 34.8, RDW Std Deviation 51.5 H, RDW Coeff of Lisbeth 15.8 H, Plt Count 324, MPV 9.9, Immature Gran % (Auto) 1.400 H, Neut % (Auto) 85.6 H, Lymph % (Auto) 4.2 L, [place] % (Auto) 8.2, Eos % (Auto) 0.2, Baso % (Auto) 0.4, Absolute Neuts (auto) 14.2 H, Absolute Lymphs (auto) 0.70 L, Nucleated RBC % 0, PT 13.3, INR 1.0, APTT 28.2, Sodium 120 L, Potassium 5.7 H, Chloride 87 L, Carbon Dioxide 21.0, Anion Gap 12, BUN 29 H, Creatinine 1.26 H, Estim Creat Clear Calc 32.46, Est GFR (MDRD) Af Amer 54 L, Est GFR (MDRD) Non-Af 45 L, BUN/Creatinine Ratio 23.0 H, G lucose 109 H, Lactic Acid 2.3 H*, Uric Acid Cancelled, Calcium 9.5, Total Bilirubin 0.80, AST 36, ALT 38, Alkaline Phosphatase 196 H, Total Creatine Kinase 129, Troponin I High Sens 55 H, Total Protein 6.4, Albumin 2.6 L, Globulin 3.8, Albumin/Globulin Ratio 0.7 L 10/03/24 16:37: Urine Color Brown, Urine Clarity Cloudy, Urine pH 5.0, Ur Specific [place] 1.020, Urine Protein 15 H, Urine Glucose (UA) 50 H, Urine Ketones 5 H, Urine Occult Blood 10 H, Urine Nitrite Negative, Urine Bilirubin 1 H, Urine Urobilinogen 1 H, Ur Leukocyte Esterase 25 H, Urine RBC 0-5 SEEN, Urine WBC 0-5 SEEN, Ur Squamous Epith Cells 0-5 SEEN, Urine Bacteria RARE, Urine Mucus 0 SEEN 10/03/24 19:06: Sodium 127 L, Potassium 4.2, Chloride 97 L, Carbon Dioxide 21.0, Anion Gap 9, BUN 25 H, Creatinine 0.98, Estim Creat Clear Calc 44.82, Est GFR (MDRD) Af Amer 72, Est GFR (MDRD) Non-Af 60, BUN/Creatinine Ratio 25.5 H, Glucose 81, Serum Osmolality 275 L, Uric Acid 5.3, Calcium 7.5 L, Troponin I High Sens 50 10/03/24 19:31: PT 15.1 H, INR 1.2, APTT 31.3 11/18/24 21:52: Lactic Acid 3.5 H*, Total Creatine Kinase 127, Troponin I High Sens 49 10/03/24 23:10: Urine Osmolality 427, Ur Random Sodium 19 10/04/24 02:37: WBC 18.1 H, RBC 3.63 L, Hgb 11.6 L, Hct 33.9 L, MCV 93.4, MCH 32.0, MCHC 34.2, RDW Std Deviation 53.1 H, RDW Coeff of Lisbeth 15.9 H, Plt Count 246, MPV 9.8, Immature Gran % (Auto) 1.200 H, Neut % (Auto) 86.4 H, Lymph % (Auto) 2.5 L, Merrick % (Auto) 9.5, Eos % (Auto) 0.2, Baso % (Auto) 0.2, Absolute Neuts (auto) 15.7 H, Absolute Lymphs (auto) 0.45 L, Nucleated RBC % 0, Differential Comment SCANNED, Diff Path Review March, APTT 209.2 H*, Sodium 128 L, Potassium 3.9, Chloride 98, Carbon Dioxide 21.0, Anion Gap 9, BUN 24 H, Creatinine 0.85, Estim Creat Clear Calc 47.04, Est GFR (MDRD) Af Amer 86, Est GFR (MDRD) Non-Af 71, BUN/Creatinine Ratio 28.3 H, Glucose 76, Calcium 7.9 L, Phosphorus 3.3, Magnesium 2.1, Total Bilirubin 0.60, AST 27, ALT 27, Alkaline Phosphatase 138 H, Total Protein 4.5 L, Albumin 2.1 L, Globulin 2.4, Albumin/Globulin Ratio 0.9, Triglycerides 75, Cholesterol 132, LDL Cholesterol 59, VLDL Cholesterol 15, HDL Cholesterol 58, TSH 4.610 H Micro: Microbiology 10/03/24 19:45 Wound - Left Foot Skin and Soft Tissue MRSA/MSSA (PCR - Final Rhythm Strip Rhythm Strip: A-fib Rate: 165 Ectopy: None Imaging Radiology Impression Chest X-Ray 10/03/24 16:45 IMPRESSION: No definite acute or significant abnormality seen. Electronically Signed: Trevor England MD at 17:05 EST , Foot X-Ray 10/03/24 16:45 IMPRESSION: No acute fracture, dislocation, or focal destructive lesion of the bones. Electronically Signed: Trevor England MD at 17:09 EST , Foot X-Ray 10/03/24 16:45 IMPRESSION: No acute fracture, dislocation, or focal destructive lesion. There is dorsal soft tissue swelling. Electronically Signed: Trevor England MD at 17:11 EST , Tibia/Fibula X-Ray 10/03/24 16:45 IMPRESSION: Normal x-ray examination of the tibia and fibula. Electronically Signed: Trevor England MD at 17:13 EST , Abdomen/Pelvis CTA 10/03/24 17:50 IMPRESSION: No evidence of significant stenosis. Electronically Signed: Zhou Alan DO at 19:14 EST , Charges/Coding Visit Charges Inpatient E&M: 14542 Init Hosp L2
[2024-10-04] MEDS: Gabapentin 100 MG Capsule PO ×2 (08:26→16:35)
[2024-10-04] MEDS: Aspirin 81 MG TAB.CHEW PO (08:26)
[2024-10-04] MEDS: Menthol/Lanolin/Calamine/Znox 113 GM Tube 1 APPLIC TOPICAL ×2 (08:27→21:48)
[2024-10-04] MEDS: 0.9% Saline Lock 10 ML Syringe IV ×3 (09:40→16:35)
[2024-10-04] MEDS: LORazepam 2 MG/ML Syringe 0.5 MG IV (09:40)
--- NOTE | 2024-10-04 10:35 | RAD_ITS ---
STUDY: X-RAY CHEST REASON FOR EXAM: Female, 69 years old. PICC line placement, afib -- Portable TECHNIQUE: Single AP portable view of the chest. COMPARISON: 10/03/2024 FINDINGS: Interval placement right upper extremity PICC with tip in the catheter overlying the junction of the right atrium and superior vena cava. The lungs are clear and expanded. There is no demonstrated pleural abnormality. Normal size heart. Normal mediastinum and jayla. Normal visualized pulmonary arteries. Normal visualized aortic arch and descending thoracic aorta. Normal visualized thoracic spine. Normal visualized ribs, clavicles, and shoulders. There is no demonstrated abnormality of the visualized soft tissue structures of the upper abdomen. RAD/Chest 1 View (Portable) IMPRESSION: Interval placement right upper extremity PICC with tip catheter overlying the junction of the right atrium and superior vena cava. No active disease. Electronically Signed: Nasir Condon MD at 10:57 EST ,
[2024-10-04] MEDS: Diltiazem 125 MG in Dextrose 5%-Water (100mL Bag) 100 ML 10 MG IV (11:38)
--- NOTE | 2024-10-04 11:40 | CASEMGMT ---
MARLIN DELACRUZ Assessment: Face to Face with pt for initial transition planning/care coordination assessment. PT in room discussing patient assessment with pt , stated unable to do therapy at this time due to patient being drowsy. MARLIN DELACRUZ introduced self and role at [facility], pt voices understanding and consents to assessment. Pt answered all questions at this time. Pt lying in bed resting, very drowsy due to medication. Care providers, pharmacy, and demographics verified/updated. Strata: 1 Admitting Dx: B LE vascular wounds PCP: Owen Specialists: Gerry Mohr Pharmacy: [facility] Insurance: None, SW aware. Prescription Benefit: No LNOK: , Bon; Friend, Shamika Living Arrangements: Pt lives with in a 1 story home with 1 step to enter. ADLs: Pt was I, needed a lot of assistance the past month. Been using a wheelchair and bedside commode. Transportation: Pt provides transportation. DME: Walk in shower with bench, wheelchair, bedside commode, rollator. HHC/SNF: Denies Hx of. Pt reports pt has become sigificantly worse over the past month. They do not have any insurance, enrolled for [facility] which is to start October 20. Pt states he works 12 hour shifts and is often out of town, their kids live out of town and they don't have anyone to help. Pt reports they live with 4 dogs, have horses at home that pt cares for but has not been able to care for them lately. Pt reports pt is a smoker. SW or CM to follow. Advised pt to ask CM if any further question/concerns/needs arise, voices understanding. Pt Goal: TBD Plan: LIZZIE Ford RN, CM
--- NOTE | 2024-10-04 12:03 | WOUNDNOTE ---
wound photo: right anterior lower leg/ankle
--- NOTE | 2024-10-04 12:04 | WOUNDNOTE ---
wound photo: right posterior lower leg
--- NOTE | 2024-10-04 12:05 | WOUNDNOTE ---
wound photo: left lower leg
--- NOTE | 2024-10-04 12:05 | WOUNDNOTE ---
wound photo: left lower leg
--- NOTE | 2024-10-04 12:06 | WOUNDNOTE ---
wound photo: left lower leg
[2024-10-04] MEDS: Heparin Injection (Vial) 5,000 UNIT/ML VIAL IV ×2 (12:59→19:47)
[2024-10-04] MEDS: Metoprolol Tartrate 25 MG Tablet PO (14:14)
--- NOTE | 2024-10-04 14:28 | CHAPLAIN ---
Type of Pastoral Visit _x__ Initial Visit ___ Follow-up Visit ___ On-call Visit ___ General Patient Visit ___ Spiritual Assessment ___ Family Conference ___ Bereavement ___ Rapid Response ___ Code Blue ___ Other (describe below) Pastoral Care Referral From _x__ Patient ___ Family ___ Nurse ___ Physician ___ Gas Engine Operator ___ Primer And Powder Canning Leader ___ Other (describe below) Sacrament/Intervention ___ Active listening ___ Anointing ___ Alevism ___ Bereavement ___ Communion ___ Georgie exploration ___ ___ Life review _x__ Prayer ___ Reconciliation ___ Sacrament of Sick _x__ Supportive presence ___ Wedding ___ Other (describe below) Pastoral Comments patient is resting and only opens her eyes when called by name; friend is at bedside and welcomes this gum machine filler to give presence and prayer to the patient; pt nods head yes for prayer; friend states that pt was going to a local religious at one time; offer of comforting words, calm presence, and prayer given; offer of support to friend
[2024-10-04] MEDS: Vancomycin IV 1,000 MG/200 ML BAG 200 MG IV (16:32)
[2024-10-04 19:13] LABS: Partial Thromboplast Time 32.7 Seconds (24.1-36.2)
[2024-10-04] MEDS: Metoprolol Tartrate 50 MG Tablet PO (21:46)
[2024-10-04] MEDS: Cefepime HCl 1 GM in 0.9% Normal Saline (50mL MB+) 50 ML IV (21:46)
[2024-10-04] MEDS: Atorvastatin Calcium 80 MG Tablet PO (21:46)
[2024-10-05] VITALS (17 sets, daily range): BP systolic 87–114; BP diastolic 54–91; PULSE 89–121; RESP 12–20; TEMP 36.4–36.7; O2SAT 91–98
[2024-10-05] MEDS: oxyCODONE 5 MG Tablet PO (04:42)
[2024-10-05] MEDS: Acetaminophen 500 MG Tablet 1000 MG PO ×3 (04:43→21:28)
--- NOTE | 2024-10-05 05:55 | EKG12_ITS ---
Test Reason : AM EKG Blood Pressure : */* mmHG Vent. Rate : 108 BPM Atrial Rate : * BPM P-R Int : * ms QRS Dur : 80 ms QT Int : 320 ms P-R-T Axes : * -23 114 degrees QTcB Int : 428 ms Atrial fibrillation with rapid ventricular response Minimal voltage criteria for LVH, may be normal variant ( Burtrum product ) Septal infarct , age undetermined Abnormal ECG When compared with ECG of 03-Oct-2024 15:51, ST no longer depressed in Lateral leads Confirmed by MARTHA GR MD ([id number]), index editor DEBORAH KIM ([id number]) on 10/06/2024 6:35:51 AM Referred By: TEDDY Confirmed By: MARTHA GR MD
[2024-10-05] MEDS: Ipratropium/Albuterol Sulfate 3 ML AMPUL.NEB INHALATION ×2 (06:56→19:42)
[2024-10-05] MEDS: 0.9% Saline Lock 10 ML Syringe IV ×4 (07:12→21:19)
[2024-10-05 07:17] LABS: Absolute Lymphocyte Count 0.39 X10^3/uL (0.83-4.51); Absolute Neutrophil Count 15.5 X10^3/uL (2.0-7.7); Basophil# 0.04 X10^3/uL; Basophil% 0.2 % (0-1); Eosinophil# 0.02 X10^3/uL; Eosinophils% 0.1 % (0-5); Hematocrit 31.3 % (37-47); Hemoglobin 10.8 g/dL (12.0-15.0); Lymphocyte # 0.39 X10^3/ul (0.83-4.51); Lymphocyte % 2.2 % (19-41); Mean Corp Hgb Conc 34.5 g/dL (32-36); Mean Corpuscular Volume 92.6 fL (81-99); Mean Platelet Vol. 9.5 fl (6.2-12.0); Monocyte# 1.69 X10^3/uL; Monocyte% 9.5 % (0-10); NRBC Flagged by Analyzer 0 % (0-5); Neutrophil # 15.54 X10^3/uL (2.7-7.7); Neutrophil % 86.9 % (47-70); POSITIVE DIFFERENTIAL YES; Platelet Count 223 K/mm3 (150-450); RBC Distribution Width SD 53.8 fl (35.1-43.9); Red Blood Count 3.38 M/mm3 (4.2-5.4); White Blood Count 17.9 K/mm3 (4.4-11.0)
[2024-10-05 07:24] LABS: Differential Indicated SCAN CRITERIA MET
[2024-10-05 07:41] LABS: Anion Gap 7 (5-15); BUN 23 mg/dL (7-18); BUN/Creat Ratio 41.7 RATIO (10-20); Calcium,Total 8.1 mg/dL (8.5-10.1); Chloride 100 mmol/L (98-107); Creatinine, Serum 0.55 mg/dL (0.55-1.02); EST Glomerular Filtration Rate 116 mL/min (>60); Est Glom Filt Rate - Afr Amer 140 mL/min (>60); Estimated Creatinine Clearance 49.98 ml/min; Glucose 77 mg/dL (74-106); Potassium 3.6 mmol/L (3.5-5.1); Sodium Level 130 mmol/L (136-145)
--- NOTE | 2024-10-05 07:42 | EX.PCM.CON.S ---
Assessment & Plan Assessment/Plan (1) Peripheral vascular disease of lower extremity with ulceration: PLAN: Patient has significant lower extremity wounds far worse on the left than the right. Appear to be full-thickness and there is likely tendon and muscle exposed. Unclear etiology. I spoke with vascular surgery and they think it is both ischemic and pressure related (potential prolonged issues with immobility at home and concern for unstable social situation). My nurse practitioner and I both separately addressed these wounds through conversations with the patient about anticipated operative debridement. We will reiterate this again tomorrow with her. We discussed the risk benefits and alternatives to the OR debridement of the wounds. I talked the patient extensively about the risks of surgery, including bleeding, infection, damage to surrounding structures, surgical site dehiscence and wound formation, need for wound care, need for repeat operations, failure to obtain the desired result, DVT/PE, and the risks of anesthesia including . The benefits and alternatives of this surgery were also discussed. All of their questions were answered, and they agreed to proceed with surgery. Plan for operative debridement of the wounds on Thursday, 07 October 2024, or sooner if the patient becomes unstable. Please keep n.p.o. at midnight on Thursday. Plan will be for irrigating wound VAC afterwards. I will discuss extensively the wounds with vascular surgery and we will come up with a plan for wound healing/reconstructive options together following the initial debridement. HPI Consult Data Date of Consult: 10/05/24 HPI Narrative HPI Narrative: MICHELINE CLEMONS is a 69 female for whom plastics is being consulted by the vascular surgery service regarding left lower extremity ischemic wounds and pressure injuries. She was admitted to the hospital on 03 October 2024 (2 days ago) after being transferred to the hospital because of shortness of breath with light activities and pain and swelling in the left lower extremity around these wounds. The wounds were first noticed by her vascular surgeon in June 2024 (3 months ago). As part of her workup for the wound at that time, a CTA abdomen and pelvis with runoff was recommended and ordered but the patient never followed up (CTA with runoff showed multiple areas with occlusion or stenosis on the left side with less significant disease on the right). She was started on Pletal, aspirin and Plavix. Upon admission, EKG was A-fib with RVR but no signs of acute ischemia. Her initial heart rate was in the 160s but is since stabilized (low 100s secondary to intervention of diltiazem drip). She has a white blood cell count of 17, but has been afebrile and nontoxic-appearing with stable blood pressure. He has been placed on broad-spectrum antibiotics including vancomycin and cefepime, and is currently admitted to medicine. She is still smoking regularly. She also drinks daily. Has a history of atrial fibrillation with RVR. She is currently on a heparin drip out of concern for an NSTEMI, but her echo shows ejection fraction of 62% and no regional wall abnormalities. She is also on a diltiazem drip. Of note the 2D echo also showed a ventricular septal mobile material that could be endocarditis and therefore infectious disease was consulted. Blood cultures are pending. Medicine is holding her Plavix and Pletal, and she is on aspirin 81 in addition to the heparin drip. Patient was expected to have a left lower extremity angiogram today with vascular surgery however vascular surgery did not think she would follow postoperative protocol of staying flat as she was agitated, and therefore this procedure was deferred. I talked to the patient today and she reported that she was having pain in the left lower extremity. She reported that the wounds have only been present for 3 months. Albumin is 2.1 Hemoglobin 12 [facility] Medical History Alcohol abuse Peripheral vascular disease Tobacco use Mitral valve prolapse Home Medications ?Medication ?Instructions ?Recorded ?Last Taken ?Type aspirin 325 mg tablet 325 mg PO QDAY 06/24/24 Unknown History atenolol 50 mg tablet 50 mg PO QDAY 06/24/24 Unknown History cyclobenzaprine 10 mg tablet 10 mg PO TID PRN muscle spasm 06/24/24 Unknown History sulfamethoxazole 800 1 tab PO DAILY PRN prevent uti 06/24/24 Unknown History mg-trimethoprim 160 mg tablet Allergy/AdvReac Type Severity Reaction Status Date / Time latex Allergy Intermediate Rash Verified 10/03/24 15:48 Penicillins Allergy Intermediate Rash Verified 10/03/24 15:48 Family History Other Hypertension Surgical History History of tonsillectomy H/O section Social History adopted: Yes Smoking Status: Current every day smoker tobacco type: cigarettes quit status: has quit before alcohol intake: current details: glass of wine with supper daily substance use type: does not use Physical Exam Narrative Extremities: No crepitus or signs of surrounding infection or ascending infection. No signs of fluid collection in the wounds at this time. No palpable pedal pulses. Ischemic disease consistent with arterial insufficiency with ischemic toes. Motor exam is limited secondary to the wounds. Compartments are soft in the legs bilaterally. Sensory exam: Inconsistent and unreliable secondary to severe pain in the lower extremities. Const alert and oriented x3 Eyes EOMs intact bilaterally Lymph Lymphatic: no lymphadenopathy noted Resp normal respiratory effort Cardio Rate: tachycardic Rhythm: abnormal rhythm Medical Records Data Medical Nutrition Assessment Dietitian: Malnutrition Criteria Met Start: 10/04/24 16:30 Freq: Status: Active Protocol: Document 10/04/24 16:31 RMA (Rec: 10/04/24 16:31 RMA [id number]) Nutrition Malnutrition Evidence of Malnutrition Exists Yes Malnutrition (severe): Chronic Evidenced By Suboptimal Energy Intake ( Severe),Weight Loss (Severe), Physical Changes (Moderate) Clinical Problem Chronic Disease or Condition Related Malnutrition Etiology severe protein-calorie malnutrition in the context of chronic disease related to inadequate energy/oral intake Signs/Symptoms as evidenced by ~20% unintentional weight loss x less than 6 months, BMI 18.6 and PO meeting less than 50% estimated nutrition needs x 3- 4 months Status Active Problem Recommendation Dietitian Recommendations/Changes Liberalize diet to Regular and encourage improved PO as tolerated. Will d/c ensure compact 4 times per day w/ medpass. Will add Navjot BID with medpass to support wound healing. Will add 240mL Ensure plus high protein w/ Breakfast and Dinner meals. Adjust ONS as needed to support weight gain. Lab / Micro Data 10/05/24 07:08 10/05/24 07:08 Labs: Laboratory Results - last 24 hr 10/03/24 16:37: Urine Color Brown, Urine Clarity Cloudy, Urine pH 5.0, Ur Specific [place] 1.020, Urine Protein 15 H, Urine Glucose (UA) 50 H, Urine Ketones 5 H, Urine Occult Blood 10 H, Urine Nitrite Negative, Urine Bilirubin 1 H, Urine Urobilinogen 1 H, Ur Leukocyte Esterase 25 H, Urine RBC 0-5 SEEN, Urine WBC 0-5 SEEN, Ur Squamous Epith Cells 0-5 SEEN, Urine Bacteria RARE, Urine Mucus 0 SEEN 10/04/24 11:08: APTT 32.0 10/04/24 18:55: APTT 32.7 10/05/24 01:33: APTT 64.0 H 10/05/24 07:08: WBC 17.9 H, RBC 3.38 L, Hgb 10.8 L, Hct 31.3 L, MCV 92.6, MCH 32.0, MCHC 34.5, RDW Std Deviation 53.8 H, RDW Coeff of Lisbeth 16.0 H, Plt Count 223, MPV 9.5, Immature Gran % (Auto) 1.100 H, Neut % (Auto) 86.9 H, Lymph % (Auto) 2.2 L, [place] % (Auto) 9.5, Eos % (Auto) 0.1, Baso % (Auto) 0.2, Absolute Neuts (auto) 15.5 H, Absolute Lymphs (auto) 0.39 L, Nucleated RBC % 0, Sodium 130 L, Potassium 3.6, Chloride 100, Carbon Dioxide 23.0, Anion Gap 7, BUN 23 H, Creatinine 0.55, Estim Creat Clear Calc 49.98, Est GFR (MDRD) Af Amer 140, Est GFR (MDRD) Non-Af 116, BUN/Creatinine Ratio 41.7 H, Glucose 77, Calcium 8.1 L Micro: Microbiology 10/03/24 19:45 Wound - Left Foot Gram Stain - Final 10/03/24 19:45 Wound - Left Foot 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 coli Rhythm Strip Rhythm Strip: A-fib Rate: 165 Ectopy: None Imaging Radiology Impression Echocardiogram 10/03/24 18:43 Interpretation Summary Normal LV size. The estimated ejection fraction is 62 %. No regional wall motion abnormalities noted. Echogenic material noted at the base of the ventricular septum mobile measuring at least 0.5 x 0.4 cm and a vegetation cannot be completely excluded Ordering Physician: Ruth Ann Hi Referring Physician: Fei Weaver Performed By: Yamilka Paniagua RDCS, RVT Ankle Brachial Index 10/04/24 07:51 Interpretation Summary Right FARSHAD 1.07, normal. Doppler/PVR waveforms of the right ankle mildly diminished at rest. Left FARSHAD 0.45, severe arterial insufficiency. Doppler/PVR waveforms of the left ankle severely diminished at rest. Ordering Physician: Briseida Morales Referring Physician: Fei Weaver Performed By: rBenda Ríos, RVT Chest X-Ray 10/04/24 10:35 IMPRESSION: Interval placement right upper extremity PICC with tip catheter overlying the junction of the right atrium and superior vena cava. No active disease. Electronically Signed: Nasir Condon MD at 10:57 EST , X-rays from 03 October 2024 X-rays of the bilateral lower extremities did not demonstrate any bony erosions I reviewed them and they demonstrated soft tissue swelling Charges/Coding Multi Select Codes Visit Charges Office Visit/Consults: 20292 IP Consult L5
--- NOTE | 2024-10-05 07:44 | CON.PCM_ITS ---
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 There is a preulcerative skin lesion anterior lateral ankle with darkened, brownish discoloration of the friable skin consistent with arterial disease. Posterior lower extremity overlying Achilles tendon prior to insertion demonstrates ulceration with necrotic tissue and dry yellowish discolored tissue secondary to maceration. Left lower extremity demonstrates black to brownish necrotic tissue of digits 1 through 3, dorsal foot, lateral foot, lateral calcaneus and lateral ankle, posterior heel, medial ankle, and entire posterior lower extremity to the proximal calf. Posterior aspect also demonstrates dense thickened yellow necrotic tissue with likely exposure of the Achilles tendon and white macerated tissue of the proximal calf secondary to significant serosanguineous exudate. There is animal hair throughout all wound tissue. There is malodor noted especially to the left lower extremity secondary to ischemic tissue necrosis. WBC 17.9 with left shift secondary to ischemic tissue necrosis, Hgb 10.8, Hct 31.3, Platelets 223, BUN 23, creatinine 0.55, PT 15.1, INR 1.2, APTT 32.7 Wound culture: MRSA PCR negative; Staph aureus PCR negative; gram-negative yakelin x [address], currently on IV Vanco/cefepime Imaging: Radiographs right and left foot and left lower extremity tib-fib 10/03/2024 negative for osteomyelitis and negative for soft tissue emphysema. Did undergo updated CTA with runoff demonstrating primarily tibial disease of the left lower extremity. LEAS 10/04/24 Right FARSHAD 1.07, Doppler/PVR diminished mildly at the ankle; left FARSHAD 0.45, Doppler/PVR severely diminished at ankle. Severe arterial disease left lower extremity, moderate arterial disease right lower extremity. Medicine following for medical management, they are appreciated Vascular surgery following with possible angiogram pending debridement with Dr. Velazquez Plastic surgery following, will attempt debridement of ulcerations with application of wound VAC on 10/07/2024. Infectious disease following for antibiotic management Wound nurse following for assistance in dressing changes From podiatry standpoint there is significant tissue necrosis secondary to severe arterial disease of the left lower extremity in addition to pressure ulceration secondary to failure to thrive at home environment. Prior to intervention revascularization would be required to aid in optimizing healing however, due to significant ischemic tissue necrosis successful tissue debridement is unlikely from salvage standpoint. Patient likely to require AKA for optimal outcome. This was discussed with vascular surgery and they are in agreement. Plastic surgery was consulted for possible AKA. Patient and patient's are refusing amputation of any type at this time but they do consent for surgical debridement with plastic surgery on 10/07/2024. Patient will be n.p.o. night before procedure with plastics. Podiatry will defer to plastics for the debridement. Patient will benefit from SNF placement following discharge and will require continued care at the wound care center with Dr. Velazquez If extent of tissue loss postdebridement is not significant and leg is deemed salvageable by Dr. Velazquez then she may likely benefit from angiogram. If not then likely undergo BKA/AKA as vascular does feel sufficient inflow for healing. Podiatry to sign off, thank you for your consultation. Mayo Garrett Jr. [place].P.M. [facility] [phone] HPI Consult Data Date of Consult: 10/05/24 HPI Narrative Reason for Consultation: Bilateral lower extremity ulcerations secondary to ischemic necrosis HPI Narrative: MICHELINE CLEMONS, is a 69 F who presents to [facility] evening of 10/03/2024 with complaint of shortness of breath with activities. However in the ED it is noted more pressing issue of bilateral lower extremity ulcerations left greater than right. She has PMHx of A-fib with RVR, HTN, bilateral lower extremity ulcers, PVD/PAD, alcohol abuse, and chronic tobacco abuse. In the ED patient is accompanied by her who assists in giving history. When I saw patient this a.m. she was not coherent and history was obtained via nursing staff and chart review. Patient states wounds have been present for over a year and has been seen at the wound care center and was discussed at that time she does have arterial ulcerations to the lower extremities. Patient did have appointment with vascular surgery, Dr. Mancilla in June 2024. At that time CTA was performed demonstrating ischemic disease in multiple segments of the lower extremity, specifically the tibial artery of the left lower extremity. She was placed on ASA, Plavix, rosuvastatin, and Pletal due to increased symptoms of claudication. Tramadol given for pain at that time. However, did not take the prescribed medicines and was lost to follow-up. She attempted to reestablish follow-up with vascular and did have an upcoming appointment October 18. Patient states she does continue to smoke but has tried to quit. In the ED she was started on Cardizem drip and IV fluids. She was also empirically started on IV Vanco/cefepime. Wound cultures were obtained of the left lower extremity. WBC 16.6, Hgb 14.7, Hct 42.2, platelet 324, PT 13.3, INR 1.0, APTT 28.2, sodium 120, potassium 5.7, BUN 29, creatinine 1.26, lactic acid 2.3 this did increase to 3.5, calcium 9.5. Radiographs were obtained of right and left foot and left tib/fib demonstrating no signs of osteomyelitis, and negative for soft tissue emphysema. Podiatry was consulted for evaluation of lower extremity ulcerations and for possible debridement/amputation. [facility] Medical History Alcohol abuse Peripheral vascular disease Tobacco use Mitral valve prolapse Home Medications ?Medication ?Instructions ?Recorded ?Last Taken ?Type aspirin 325 mg tablet 325 mg PO QDAY 06/24/24 Unknown History atenolol 50 mg tablet 50 mg PO QDAY 06/24/24 Unknown History cyclobenzaprine 10 mg tablet 10 mg PO TID PRN muscle spasm 06/24/24 Unknown History sulfamethoxazole 800 1 tab PO DAILY PRN prevent uti 06/24/24 Unknown History mg-trimethoprim 160 mg tablet Allergy/AdvReac Type Severity Reaction Status Date / Time latex Allergy Intermediate Rash Verified 10/03/24 15:48 Penicillins Allergy Intermediate Rash Verified 10/03/24 15:48 Family History (Updated 06/24/24 @ 10:19 by ALEJANDRO Gutierrez) Other Hypertension Surgical History History of tonsillectomy H/O section Social History adopted: Yes Smoking Status: Current every day smoker tobacco type: cigarettes quit status: has quit before alcohol intake: current details: glass of wine with supper daily substance use type: does not use ROS ROS Narrative Unable to obtain as patient is incoherent. Physical Exam Const no apparent distress Constitutional Narrative: Incoherent, does respond to painful stimuli. Response to verbal command by name. HEENT normocephalic Neck General: normal visual inspection Lymph Lymphatic: no lymphadenopathy noted and no lymphedema noted Resp normal respiratory effort Cardio regular rate and regular rhythm Extremity Extremity Narrative: Vascular: DP and PT pulses nonpalpable bilateral. CFT is sluggish/delayed to digits bilateral. Temperature gradient is cool to cold left lower extremity with right lower extremity warm to cool. Pedal/digital hair growth absent to bilateral foot. Neurologic: Gross sensation intact. Does respond to painful stimuli. Motor function intact bilateral. Musculoskeletal: There is pain to palpation about the ulcerative sites of the left lower leg, foot, and digits left lower extremity. There is pain to palpation of the calf secondary to ischemic vascular disease left lower extremity. Right lower extremity demonstrates no pain to palpation of the calf, no pain to palpation of foot or ankle. Range of motion decreased to ankle joint, subtalar joint, midtarsal joint, and first MTPJ of the bilateral foot. Dermatological: Right lower extremity demonstrates some erythema in addition to brownish/purplish discoloration at various points about the ankle and foot. There is a preulcerative skin lesion anterior lateral ankle with darkened, brownish discoloration of the friable skin consistent with arterial disease. Posterior lower extremity overlying Achilles tendon prior to insertion demonstrates ulceration with necrotic tissue and dry yellowish discolored tissue secondary to maceration. Left lower extremity demonstrates black to brownish necrotic tissue of digits 1 through 3, dorsal foot, lateral foot, lateral calcaneus and lateral ankle, posterior heel, medial ankle, and entire posterior lower extremity to the proximal calf. Posterior aspect also demonstrates dense thickened yellow necrotic tissue with likely exposure of the Achilles tendon and white macerated tissue of the proximal calf secondary to significant serosanguineous exudate. There is animal hair throughout all wound tissue. There is malodor noted especially to the left lower extremity secondary to ischemic tissue necrosis. Of note fingertips bilateral hands demonstrate some erythema in addition to purpleish dusky disks coloration consistent with Buerger's disease Medical Records Data Medical Nutrition Assessment Dietitian: Malnutrition Criteria Met Start: 10/04/24 16:30 Freq: Status: Active Protocol: Document 10/04/24 16:31 RMA (Rec: 10/04/24 16:31 RMA [id number]) Nutrition Malnutrition Evidence of Malnutrition Exists Yes Malnutrition (severe): Chronic Evidenced By Suboptimal Energy Intake ( Severe),Weight Loss (Severe), Physical Changes (Moderate) Clinical Problem Chronic Disease or Condition Related Malnutrition Etiology severe protein-calorie malnutrition in the context of chronic disease related to inadequate energy/oral intake Signs/Symptoms as evidenced by ~20% unintentional weight loss x less than 6 months, BMI 18.6 and PO meeting less than 50% estimated nutrition needs x 3- 4 months Status Active Problem Recommendation Dietitian Recommendations/Changes Liberalize diet to Regular and encourage improved PO as tolerated. Will d/c ensure compact 4 times per day w/ medpass. Will add Navjot BID with medpass to support wound healing. Will add 240mL Ensure plus high protein w/ Breakfast and Dinner meals. Adjust ONS as needed to support weight gain. Lab / Micro Data 10/05/24 07:08 10/05/24 07:08 Labs: Laboratory Results - last 24 hr 10/03/24 16:37: Urine Color Brown, Urine Clarity Cloudy, Urine pH 5.0, Ur Specific [place] 1.020, Urine Protein 15 H, Urine Glucose (UA) 50 H, Urine Ketones 5 H, Urine Occult Blood 10 H, Urine Nitrite Negative, Urine Bilirubin 1 H, Urine Urobilinogen 1 H, Ur Leukocyte Esterase 25 H, Urine RBC 0-5 SEEN, Urine WBC 0-5 SEEN, Ur Squamous Epith Cells 0-5 SEEN, Urine Bacteria RARE, Urine Mucus 0 SEEN 10/04/24 11:08: APTT 32.0 10/04/24 18:55: APTT 32.7 10/05/24 01:33: APTT 64.0 H 10/05/24 07:08: WBC 17.9 H, RBC 3.38 L, Hgb 10.8 L, Hct 31.3 L, MCV 92.6, MCH 32.0, MCHC 34.5, RDW Std Deviation 53.8 H, RDW Coeff of Lisbeth 16.0 H, Plt Count 223, MPV 9.5, Immature Gran % (Auto) 1.100 H, Neut % (Auto) 86.9 H, Lymph % (Auto) 2.2 L, [place] % (Auto) 9.5, Eos % (Auto) 0.1, Baso % (Auto) 0.2, Absolute Neuts (auto) 15.5 H, Absolute Lymphs (auto) 0.39 L, Nucleated RBC % 0, Sodium 130 L, Potassium 3.6, Chloride 100, Carbon Dioxide 23.0, Anion Gap 7, BUN 23 H, Creatinine 0.55, Estim Creat Clear Calc 49.98, Est GFR (MDRD) Af Amer 140, Est GFR (MDRD) Non-Af 116, BUN/Creatinine Ratio 41.7 H, Glucose 77, Calcium 8.1 L Micro: Microbiology 10/03/24 19:45 Wound - Left Foot Gram Stain - Final 10/03/24 19:45 Wound - Left Foot 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 coli Rhythm Strip Rhythm Strip: A-fib Rate: 165 Ectopy: None Imaging Radiology Impression Echocardiogram 10/03/24 18:43 Interpretation Summary Normal LV size. The estimated ejection fraction is 62 %. No regional wall motion abnormalities noted. Echogenic material noted at the base of the ventricular septum mobile measuring at least 0.5 x 0.4 cm and a vegetation cannot be completely excluded Ordering Physician: Ruth Ann Hi Referring Physician: Fei Weaver Performed By: Yamilka Paniagua RDCS, RVT Ankle Brachial Index 10/04/24 07:51 Interpretation Summary Right FARSHAD 1.07, normal. Doppler/PVR waveforms of the right ankle mildly diminished at rest. Left FARSHAD 0.45, severe arterial insufficiency. Doppler/PVR waveforms of the left ankle severely diminished at rest. Ordering Physician: Briseida Morales Referring Physician: Fei Weaver Performed By: Brenda Ríos RVT Chest X-Ray 10/04/24 10:35 IMPRESSION: Interval placement right upper extremity PICC with tip catheter overlying the junction of the right atrium and superior vena cava. No active disease. Electronically Signed: Nasir Condon MD at 10:57 EST ,
--- NOTE | 2024-10-05 08:04 | PN.HOSP_ITS ---
Reason for Visit Reason for Visit: Diagnoses Sepsis, unspecified organism (10/03/24) Elevated white blood cell count, unspecified (10/03/24) Dehydration (10/03/24) Hypo-osmolality and hyponatremia (10/03/24) Acidosis, unspecified (10/03/24) Hyperkalemia (10/03/24) Unspecified atrial fibrillation (10/03/24) Peripheral vascular disease, unspecified (10/03/24) Local infection of the skin and subcutaneous tissue, unspecified (10/03/24) Non-pressure chronic ulcer of unspecified part of unspecified lower leg with unspecified severity (10/03/24) Other specified abnormal findings of blood chemistry (10/03/24) Other injury of unspecified body region, initial encounter (10/03/24) Subjective Subjective Still with anxiety and LE pain. Objective Data Objective Data Vital Signs: Vital Signs Temp Pulse Resp BP Pulse Ox O2 Del Method O2 Flow Rate 36.6 C 89 20 H 107/74 91 Nasal Cannula 2 10/05/24 02:00 10/05/24 07:20 10/05/24 07:20 10/05/24 02:00 10/05/24 07:55 10/05/24 07:55 10/05/24 07:55 Oxygen Flow Rate (L/min) 2 Oxygen Delivery Method Nasal Cannula Weight: 47.7 kg Body Mass Index (BMI) 18.6 Intake & Output: Intake and Output for Last 24 Hours 10/03/24 10/04/24 10/05/24 23:59 23:59 23:59 Intake Total 2451.25 / 2716.25 927.75 / 1127.75 200 / 200 Output Total 1750 / 1750 250 / 250 Balance 2451.25 / 1416.25 -822.25 / -622.25 -50 / -50 Medical Nutrition Assessment Dietitian: Malnutrition Criteria Met Start: 10/04/24 16:30 Freq: Status: Active Protocol: Document 10/04/24 16:31 RMA (Rec: 10/04/24 16:31 RMA [id number]) Nutrition Malnutrition Evidence of Malnutrition Exists Yes Malnutrition (severe): Chronic Evidenced By Suboptimal Energy Intake ( Severe),Weight Loss (Severe), Physical Changes (Moderate) Clinical Problem Chronic Disease or Condition Related Malnutrition Etiology severe protein-calorie malnutrition in the context of chronic disease related to inadequate energy/oral intake Signs/Symptoms as evidenced by ~20% unintentional weight loss x less than 6 months, BMI 18.6 and PO meeting less than 50% estimated nutrition needs x 3- 4 months Status Active Problem Recommendation Dietitian Recommendations/Changes Liberalize diet to Regular and encourage improved PO as tolerated. Will d/c ensure compact 4 times per day w/ medpass. Will add Navjot BID with medpass to support wound healing. Will add 240mL Ensure plus high protein w/ Breakfast and Dinner meals. Adjust ONS as needed to support weight gain. Lab / Micro Data 10/05/24 07:08 10/05/24 07:08 Labs: Laboratory Results - last 24 hr 10/03/24 16:37: Urine Color Brown, Urine Clarity Cloudy, Urine pH 5.0, Ur Specific [place] 1.020, Urine Protein 15 H, Urine Glucose (UA) 50 H, Urine Ketones 5 H, Urine Occult Blood 10 H, Urine Nitrite Negative, Urine Bilirubin 1 H, Urine Urobilinogen 1 H, Ur Leukocyte Esterase 25 H, Urine RBC 0-5 SEEN, Urine WBC 0-5 SEEN, Ur Squamous Epith Cells 0-5 SEEN, Urine Bacteria RARE, Urine Mucus 0 SEEN 10/04/24 11:08: APTT 32.0 10/04/24 18:55: APTT 32.7 10/05/24 01:33: APTT 64.0 H 10/05/24 07:08: WBC 17.9 H, RBC 3.38 L, Hgb 10.8 L, Hct 31.3 L, MCV 92.6, MCH 32.0, MCHC 34.5, RDW Std Deviation 53.8 H, RDW Coeff of Lisbeth 16.0 H, Plt Count 223, MPV 9.5, Immature Gran % (Auto) 1.100 H, Neut % (Auto) 86.9 H, Lymph % (Auto) 2.2 L, [place] % (Auto) 9.5, Eos % (Auto) 0.1, Baso % (Auto) 0.2, Absolute Neuts (auto) 15.5 H, Absolute Lymphs (auto) 0.39 L, Nucleated RBC % 0, Sodium 130 L, Potassium 3.6, Chloride 100, Carbon Dioxide 23.0, Anion Gap 7, BUN 23 H, Creatinine 0.55, Estim Creat Clear Calc 49.98, Est GFR (MDRD) Af Amer 140, Est GFR (MDRD) Non-Af 116, BUN/Creatinine Ratio 41.7 H, Glucose 77, Calcium 8.1 L Micro: Microbiology 10/03/24 19:45 Wound - Left Foot Gram Stain - Final 10/03/24 19:45 Wound - Left Foot Wound Culture - Preliminary GNR lactose diffuser operator Gram negative yakelin 10/03/24 16:37 Urine, Catheterized Urine Culture - Preliminary Presumptive E. coli 10/03/24 19:45 Wound - Left Foot Skin and Soft Tissue MRSA/MSSA (PCR - Final Radiography Diagnostic Testing: Radiology Impression Echocardiogram 10/03/24 18:43 Interpretation Summary Normal LV size. The estimated ejection fraction is 62 %. No regional wall motion abnormalities noted. Echogenic material noted at the base of the ventricular septum mobile measuring at least 0.5 x 0.4 cm and a vegetation cannot be completely excluded Ordering Physician: Ruth Ann Hi Referring Physician: Fei Weaver Performed By: Yamilka Paniagua RDCS, RVT Ankle Brachial Index 10/04/24 07:51 Interpretation Summary Right FARSHAD 1.07, normal. Doppler/PVR waveforms of the right ankle mildly diminished at rest. Left FARSHAD 0.45, severe arterial insufficiency. Doppler/PVR waveforms of the left ankle severely diminished at rest. Ordering Physician: Briseida Morales Referring Physician: Fei Weaver Performed By: Brenda Ríos, RVT Chest X-Ray 10/04/24 10:35 IMPRESSION: Interval placement right upper extremity PICC with tip catheter overlying the junction of the right atrium and superior vena cava. No active disease. Electronically Signed: Nasir Condon MD at 10:57 EST , Rhythm Strip Rhythm Strip: A-fib Rate: 165 Ectopy: None Physical Exam Const Constitutional Narrative: awake. Curled up on her left side. Afebrile. HEENT head/scalp atraumatic and moist oral mucous membranes Resp normal respiratory effort, no retractions, no use of accessory muscles and clear to auscultation bilaterally Cardio Cardio Narrative: irregularly irregular. GI normal to inspection, nondistended, normoactive bowel sounds, soft to palpation, non-tender and non-distended Neuro Sensorium / Orientation: awake and alert Psych affect normal Assessment & Plan Assessment/Plan (1) Peripheral vascular disease of lower extremity with ulceration: (2) Wound infection: (3) Sepsis: (4) Atrial fibrillation with RVR: (5) Hyponatremia: (6) Elevated serum creatinine: (7) Hyperkalemia: (8) Lactic acidosis: (9) Elevated troponin: (10) Dehydration: (11) Leukocytosis: PLAN: Plan Sepsis * secondary to bilateral lower extremity wound infection from vascular disease * Meet sepsis criteria with tachycardia, suspected JOHNATHON, lactic acidosis and source * Broad-spectrum antibiotics with vancomycin and cefepime to cover MRSA and Pseudomonas * Wound and blood cultrues negative. MRSA PCR wound negative * Patient received 30 cc/kg body weight * podiatry consult. Wound care. A-fib with RVR * echo shows an EF 62%. No regional wall motion abnormalities. * on dilt and heparin gtt * cards consult. Hyponatremia * suspect hypovolemic hyponatremia improved with IVF. * Monitor Hyperkalemia * improved with IVF. Cardiac vegetation * 2d Echo showed a ventricular septum mobile material 0.5 x 0.4 cm. * cannot rule out endocarditis * BCx pending * ID consult. Elevated troponin * Mild at 55. Resolved. Peripheral vascular disease * Patient was placed on Plavix, aspirin, Pletal, and rosuvastatin. Does not appear to be taking any of these. Heparin drip for now. Start aspirin 81 mg daily and will hold off her Plavix for now. Await vascular surgery input but would like to avoid triple therapy if possible. Check lipids. Start atorvastatin 80 mg * Seen by vascular surgery. Plan for angiogram to LLE, but high concern pt will require amputation. Seen by Dr. Velazquez Generalized weakness/debility * PT/OT consultation * Social work/case management consultation as I do highly anticipate patient will likely need placed at discharge Alcohol use * CIWA protocol. DVT prophylaxis: not indicated as anticoagulated. CODE STATUS -Full code as verified at the time of admission Charges/Coding Visit Charges Inpatient E&M: 61225 Subs Hosp L2
--- NOTE | 2024-10-05 08:23 | PN.SURG_ITS ---
Subjective Subjective Saw Ms. Epperson this morning along with wound care nurse Jovanna. She is initially very somnolent, not waking to changing the wraps or to verbal stimulus. With dressing removal, repeatedly trying to contract her leg. After dressings were removed, she did awaken a bit and answered a couple questions but then stopped answering and appeared to fall back asleep. Her answers were mumbled and somewhat difficult to understand. Did inform her that her wounds are severe and may ultimately require amputation, when asked if she would be agreeable to that if necessary she seemed to respond with do I really have a choice? but not able to maintain conversation to discuss further at this time. She did endorse pain to the bilateral legs. She also endorsed nightmares. Objective Data Objective Data Vital Signs: Vital Signs Temp Pulse Resp BP Pulse Ox O2 Del Method O2 Flow Rate 97.8 F 96 16 98/54 L 91 Nasal Cannula 2 10/05/24 08:08 10/05/24 08:08 10/05/24 08:08 10/05/24 08:08 10/05/24 07:55 10/05/24 08:08 10/05/24 08:08 Oxygen Flow Rate (L/min) 2 Oxygen Delivery Method Nasal Cannula Weight: 105 lb 2.568 oz Body Mass Index (BMI) 18.6 Intake & Output: Intake and Output for Last 24 Hours 10/03/24 10/04/24 10/05/24 23:59 23:59 23:59 Intake Total 2451.25 / 2716.25 927.75 / 1127.75 200 / 200 Output Total 1750 / 1750 250 / 250 Balance 2451.25 / 1416.25 -822.25 / -622.25 -50 / -50 Medical Nutrition Assessment Dietitian: Malnutrition Criteria Met Start: 10/04/24 16:30 Freq: Status: Active Protocol: Document 10/04/24 16:31 RMA (Rec: 10/04/24 16:31 RMA [id number]) Nutrition Malnutrition Evidence of Malnutrition Exists Yes Malnutrition (severe): Chronic Evidenced By Suboptimal Energy Intake ( Severe),Weight Loss (Severe), Physical Changes (Moderate) Clinical Problem Chronic Disease or Condition Related Malnutrition Etiology severe protein-calorie malnutrition in the context of chronic disease related to inadequate energy/oral intake Signs/Symptoms as evidenced by ~20% unintentional weight loss x less than 6 months, BMI 18.6 and PO meeting less than 50% estimated nutrition needs x 3- 4 months Status Active Problem Recommendation Dietitian Recommendations/Changes Liberalize diet to Regular and encourage improved PO as tolerated. Will d/c ensure compact 4 times per day w/ medpass. Will add Navjot BID with medpass to support wound healing. Will add 240mL Ensure plus high protein w/ Breakfast and Dinner meals. Adjust ONS as needed to support weight gain. Lab / Micro Data 10/05/24 07:08 10/05/24 07:08 Labs: Laboratory Results - last 24 hr 10/03/24 16:37: Urine Color Brown, Urine Clarity Cloudy, Urine pH 5.0, Ur Specific [place] 1.020, Urine Protein 15 H, Urine Glucose (UA) 50 H, Urine Ketones 5 H, Urine Occult Blood 10 H, Urine Nitrite Negative, Urine Bilirubin 1 H, Urine Urobilinogen 1 H, Ur Leukocyte Esterase 25 H, Urine RBC 0-5 SEEN, Urine WBC 0-5 SEEN, Ur Squamous Epith Cells 0-5 SEEN, Urine Bacteria RARE, Urine Mucus 0 SEEN 10/04/24 11:08: APTT 32.0 10/04/24 18:55: APTT 32.7 10/05/24 01:33: APTT 64.0 H 10/05/24 07:08: WBC 17.9 H, RBC 3.38 L, Hgb 10.8 L, Hct 31.3 L, MCV 92.6, MCH 32.0, MCHC 34.5, RDW Std Deviation 53.8 H, RDW Coeff of Lisbeth 16.0 H, Plt Count 223, MPV 9.5, Immature Gran % (Auto) 1.100 H, Neut % (Auto) 86.9 H, Lymph % (Auto) 2.2 L, [place] % (Auto) 9.5, Eos % (Auto) 0.1, Baso % (Auto) 0.2, Absolute Neuts (auto) 15.5 H, Absolute Lymphs (auto) 0.39 L, Nucleated RBC % 0, Sodium 130 L, Potassium 3.6, Chloride 100, Carbon Dioxide 23.0, Anion Gap 7, BUN 23 H, Creatinine 0.55, Estim Creat Clear Calc 49.98, Est GFR (MDRD) Af Amer 140, Est GFR (MDRD) Non-Af 116, BUN/Creatinine Ratio 41.7 H, Glucose 77, Calcium 8.1 L Micro: Microbiology 10/03/24 19:45 Wound - Left Foot Gram Stain - Final 10/03/24 19:45 Wound - Left Foot Wound Culture - Preliminary GNR lactose branch coordinator Gram negative yakelin 10/03/24 16:37 Urine, Catheterized Urine Culture - Preliminary Presumptive E. coli 10/03/24 19:45 Wound - Left Foot Skin and Soft Tissue MRSA/MSSA (PCR - Final Radiography Diagnostic Testing: Radiology Impression Echocardiogram 10/03/24 18:43 Interpretation Summary Normal LV size. The estimated ejection fraction is 62 %. No regional wall motion abnormalities noted. Echogenic material noted at the base of the ventricular septum mobile measuring at least 0.5 x 0.4 cm and a vegetation cannot be completely excluded Ordering Physician: Ruth Ann Hi Referring Physician: Fei Weaver Performed By: Yamilka Paniagua RDCS, RVT Ankle Brachial Index 10/04/24 07:51 Interpretation Summary Right FARSHAD 1.07, normal. Doppler/PVR waveforms of the right ankle mildly diminished at rest. Left FARSHAD 0.45, severe arterial insufficiency. Doppler/PVR waveforms of the left ankle severely diminished at rest. Ordering Physician: Briseida Morales Referring Physician: Fei Weaver Performed By: Brenda Ríos, RVT Chest X-Ray 10/04/24 10:35 IMPRESSION: Interval placement right upper extremity PICC with tip catheter overlying the junction of the right atrium and superior vena cava. No active disease. Electronically Signed: Nasir Condon MD at 10:57 EST , Rhythm Strip Rhythm Strip: A-fib Rate: 165 Ectopy: None Physical Exam Narrative Somnolent, woke with verbal stimulus briefly to answer a few questions but then fell back to sleep. Wound care nurse took down dressings so wounds were directly examined today. Wounds involving all left toes, left forefoot, left posterior/medial/lateral calf with overlying eschar/significant nonviable tissue. At the wound edges through the calf there does appear to be some granulation/pink tissue. There is a mild foul odor. Assessment & Plan Assessment/Plan (1) Peripheral vascular disease of lower extremity with ulceration: PLAN: Plan Patient remains with altered mental status this morning. Concerned that with this altered mental status, she will not be able to cooperate with positioning etc during the procedure or during bedrest following the procedure which would increase her risk of complications such as hematoma. Will cancel angiogram today. Dr. Mancilla discussed patient with Dr. Velazquez. Dr. Velazquez is planning to take patient for wound debridement to better determine the extent of tissue loss. If he feels that her leg may be salvageable, then angiogram likely to be of benefit. If it is determined that she will require BKA/AKA then likely no significant benefit to be gained from angiogram, would expect her inflow to be sufficient to heal this at present. Will continue to follow. Charges/Coding Visit Charges Inpatient E&M: 27321 Init Hosp L1
[2024-10-05 08:33] LABS: Pathologist Review Reviewed
[2024-10-05 08:39] LABS: Partial Thromboplast Time 54.3 Seconds (24.1-36.2)
[2024-10-05] MEDS: Metoprolol Tartrate 50 MG Tablet PO ×2 (09:21→21:17)
[2024-10-05] MEDS: Gabapentin 100 MG Capsule PO ×2 (09:21→13:05)
[2024-10-05] MEDS: Menthol/Lanolin/Calamine/Znox 113 GM Tube 1 APPLIC TOPICAL ×2 (09:21→21:17)
--- NOTE | 2024-10-05 12:48 | PCM.PN.SRG ---
Subjective Subjective Patient just transferred to a bed with specialty mattress. She is awake and answering questions. She states she is in pain. Her is at the bedside. Objective Data Objective Data Vital Signs: Vital Signs Temp Pulse Resp BP Pulse Ox O2 Del Method O2 Flow Rate 97.9 F 117 H 17 110/89 H 94 Nasal Cannula 2 10/05/24 10:00 10/05/24 10:00 10/05/24 10:00 10/05/24 10:00 10/05/24 10:00 10/05/24 10:00 10/05/24 10:17 Oxygen Flow Rate (L/min) 2 Oxygen Delivery Method Nasal Cannula Weight: 105 lb 2.568 oz Body Mass Index (BMI) 18.6 Intake & Output: Intake and Output for Last 24 Hours 10/03/24 10/04/24 10/05/24 23:59 23:59 23:59 Intake Total 2451.25 / 2716.25 927.75 / 1127.75 287.21 / 287.21 Output Total 1750 / 1750 250 / 250 Balance 2451.25 / 1416.25 -822.25 / -622.25 37.21 / 37.21 Medical Nutrition Assessment Dietitian: Malnutrition Criteria Met Start: 10/04/24 16:30 Freq: Status: Active Protocol: Document 10/04/24 16:31 RMA (Rec: 10/04/24 16:31 RMA [id number]) Nutrition Malnutrition Evidence of Malnutrition Exists Yes Malnutrition (severe): Chronic Evidenced By Suboptimal Energy Intake ( Severe),Weight Loss (Severe), Physical Changes (Moderate) Clinical Problem Chronic Disease or Condition Related Malnutrition Etiology severe protein-calorie malnutrition in the context of chronic disease related to inadequate energy/oral intake Signs/Symptoms as evidenced by ~20% unintentional weight loss x less than 6 months, BMI 18.6 and PO meeting less than 50% estimated nutrition needs x 3- 4 months Status Active Problem Recommendation Dietitian Recommendations/Changes Liberalize diet to Regular and encourage improved PO as tolerated. Will d/c ensure compact 4 times per day w/ medpass. Will add Navjot BID with medpass to support wound healing. Will add 240mL Ensure plus high protein w/ Breakfast and Dinner meals. Adjust ONS as needed to support weight gain. Lab / Micro Data 10/05/24 07:08 10/05/24 07:08 Labs: Laboratory Results - last 24 hr 10/04/24 02:37: Diff Path Review Reviewed 10/04/24 18:55: APTT 32.7 10/05/24 01:33: APTT 64.0 H 10/05/24 07:08: WBC 17.9 H, RBC 3.38 L, Hgb 10.8 L, Hct 31.3 L, MCV 92.6, MCH 32.0, MCHC 34.5, RDW Std Deviation 53.8 H, RDW Coeff of Lisbeth 16.0 H, Plt Count 223, MPV 9.5, Immature Gran % (Auto) 1.100 H, Neut % (Auto) 86.9 H, Lymph % (Auto) 2.2 L, [place] % (Auto) 9.5, Eos % (Auto) 0.1, Baso % (Auto) 0.2, Absolute Neuts (auto) 15.5 H, Absolute Lymphs (auto) 0.39 L, Nucleated RBC % 0, Differential Comment COMMENT, Diff Path Review May , APTT 54.3 H, Sodium 130 L, Potassium 3.6, Chloride 100, Carbon Dioxide 23.0, Anion Gap 7, BUN 23 H, Creatinine 0.55, Estim Creat Clear Calc 49.98, Est GFR (MDRD) Af Amer 140, Est GFR (MDRD) Non-Af 116, BUN/Creatinine Ratio 41.7 H, Glucose 77, Calcium 8.1 L Micro: Microbiology 10/03/24 19:45 Wound - Left Foot Gram Stain - Final 10/03/24 19:45 Wound - Left Foot Wound Culture - Preliminary GNR lactose signal intelligence analyst Gram negative yakelin Gram negative yakelin#2 10/03/24 16:37 Urine, Catheterized Urine Culture - Preliminary ESBL Escherichia coli Mixed Gram Positive Organisms 10/03/24 19:45 Wound - Left Foot Skin and Soft Tissue MRSA/MSSA (PCR - Final Radiography Diagnostic Testing: Radiology Impression Echocardiogram 10/03/24 18:43 Interpretation Summary Normal LV size. The estimated ejection fraction is 62 %. No regional wall motion abnormalities noted. Echogenic material noted at the base of the ventricular septum mobile measuring at least 0.5 x 0.4 cm and a vegetation cannot be completely excluded Ordering Physician: Ruth Ann Hi Referring Physician: Fei Weaver Performed By: Yamilka Paniagua RDCS, RVT Ankle Brachial Index 10/04/24 07:51 Interpretation Summary Right FARSHAD 1.07, normal. Doppler/PVR waveforms of the right ankle mildly diminished at rest. Left FARSHAD 0.45, severe arterial insufficiency. Doppler/PVR waveforms of the left ankle severely diminished at rest. Ordering Physician: Briseida Morales Referring Physician: Fei Weaver Performed By: Brenda Ríos, RVT Rhythm Strip Rhythm Strip: A-fib Rate: 165 Ectopy: None Assessment & Plan Assessment/Plan (1) Peripheral vascular disease of lower extremity with ulceration: (2) Wound infection: (3) Sepsis: (4) Tobacco abuse: PLAN: Plan Had an in depth discussion with patient and her . Explained that Dr. Velazquez will plan on taking her to surgery on Thursday10/07/24 for an operative debridement of her left lower extremity and placement of a wound VAC. Patient and her verbalized understanding. Consents signed for both surgery and photos for educational purposes. Patient asked her to sign her consents for her, because she does not feel well enough to sign anything, I was a witness to this. Questions and concerns answered. Patient's stated that he agrees to her having the debridement on Thursday, but he does not agree to any amputation of her leg. He reiterated this multiple times. I reinforced that at this time, the only surgery that Dr. Velazquez will be doing is a debridement of the non viable tissue that is present. She may eat and drink at this time. She will be made NPO after midnight 10/06/24. I discussed this plan of care with Dr. Velazquez.
[2024-10-05 13:55] LABS: Partial Thromboplast Time 69.2 Seconds (24.1-36.2)
--- NOTE | 2024-10-05 13:57 | PCM.CONS.GEN ---
Assessment & Plan Assessment/Plan (1) Peripheral vascular disease of lower extremity with ulceration: (2) Wound infection: PLAN: Infected BLE ulcers related to PVD - wound cx pending, cont vanc/cefepime for now Will follow, thank you HPI Consult Data Date of Consult: 10/05/24 HPI Narrative Reason for Consultation: infected legs HPI Narrative: MICHELINE CLEMONS, is a 69 F with h/o PVD, etoh abuse, presented with several years progressive BLE redness, pain, ulceration, drainage. L worse than R. Has been on some course of po abx as outpt without improvement. No fever or chills. Came to ED due to acute worsening. Admitted here on vanc/cefepime. Feeling ok today. Full ROS performed and neg except as noted above. [facility] Medical History Alcohol abuse Peripheral vascular disease Tobacco use Mitral valve prolapse Home Medications ?Medication ?Instructions ?Recorded ?Last Taken ?Type aspirin 325 mg tablet 325 mg PO QDAY 06/24/24 Unknown History atenolol 50 mg tablet 50 mg PO QDAY 06/24/24 Unknown History cyclobenzaprine 10 mg tablet 10 mg PO TID PRN muscle spasm 06/24/24 Unknown History sulfamethoxazole 800 1 tab PO DAILY PRN prevent uti 06/24/24 Unknown History mg-trimethoprim 160 mg tablet Allergy/AdvReac Type Severity Reaction Status Date / Time latex Allergy Intermediate Rash Verified 10/03/24 15:48 Penicillins Allergy Intermediate Rash Verified 10/03/24 15:48 Family History (Updated 06/24/24 @ 10:19 by ALEJANDRO Gutierrez) Other Hypertension Surgical History History of tonsillectomy H/O section Social History adopted: Yes Smoking Status: Current every day smoker tobacco type: cigarettes quit status: has quit before alcohol intake: current details: glass of wine with supper daily substance use type: does not use Physical Exam Const alert, oriented x3 and no apparent distress General Appearance: cooperative HEENT normocephalic and head/scalp atraumatic Eyes PERRL and EOMs intact bilaterally Neck supple and No nodes Resp normal air movement and clear to auscultation bilaterally Cardio regular rate and regular rhythm GI soft to palpation, non-tender and non-distended Extremity General Extremity: Negative for edema Skin Skin Narrative: reviewed wound photos Neuro CN's II-XII intact bilaterally Medical Records Data Medical Nutrition Assessment Dietitian: Malnutrition Criteria Met Start: 10/04/24 16:30 Freq: Status: Active Protocol: Document 10/04/24 16:31 RMA (Rec: 10/04/24 16:31 RMA [id number]) Nutrition Malnutrition Evidence of Malnutrition Exists Yes Malnutrition (severe): Chronic Evidenced By Suboptimal Energy Intake ( Severe),Weight Loss (Severe), Physical Changes (Moderate) Clinical Problem Chronic Disease or Condition Related Malnutrition Etiology severe protein-calorie malnutrition in the context of chronic disease related to inadequate energy/oral intake Signs/Symptoms as evidenced by ~20% unintentional weight loss x less than 6 months, BMI 18.6 and PO meeting less than 50% estimated nutrition needs x 3- 4 months Status Active Problem Recommendation Dietitian Recommendations/Changes Liberalize diet to Regular and encourage improved PO as tolerated. Will d/c ensure compact 4 times per day w/ medpass. Will add Navjot BID with medpass to support wound healing. Will add 240mL Ensure plus high protein w/ Breakfast and Dinner meals. Adjust ONS as needed to support weight gain. Lab / Micro Data Attestation: I reviewed the patient's lab results. 10/05/24 07:08 10/05/24 07:08 Labs: Laboratory Results - last 24 hr 10/04/24 02:37: Diff Path Review Reviewed 10/04/24 18:55: APTT 32.7 10/05/24 01:33: APTT 64.0 H 10/05/24 07:08: WBC 17.9 H, RBC 3.38 L, Hgb 10.8 L, Hct 31.3 L, MCV 92.6, MCH 32.0, MCHC 34.5, RDW Std Deviation 53.8 H, RDW Coeff of Lisbeth 16.0 H, Plt Count 223, MPV 9.5, Immature Gran % (Auto) 1.100 H, Neut % (Auto) 86.9 H, Lymph % (Auto) 2.2 L, [place] % (Auto) 9.5, Eos % (Auto) 0.1, Baso % (Auto) 0.2, Absolute Neuts (auto) 15.5 H, Absolute Lymphs (auto) 0.39 L, Nucleated RBC % 0, Differential Comment COMMENT, Diff Path Review March, APTT 54.3 H, Sodium 130 L, Potassium 3.6, Chloride 100, Carbon Dioxide 23.0, Anion Gap 7, BUN 23 H, Creatinine 0.55, Estim Creat Clear Calc 49.98, Est GFR (MDRD) Af Amer 140, Est GFR (MDRD) Non-Af 116, BUN/Creatinine Ratio 41.7 H, Glucose 77, Calcium 8.1 L 10/05/24 13:28: APTT 69.2 H Micro: Microbiology 10/03/24 19:45 Wound - Left Foot Gram Stain - Final 10/03/24 19:45 Wound - Left Foot Wound Culture - 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 The estimated ejection fraction is 62 %. No regional wall motion abnormalities noted. Echogenic material noted at the base of the ventricular septum mobile measuring at least 0.5 x 0.4 cm and a vegetation cannot be completely excluded Ordering Physician: Ruth Ann Hi Referring Physician: Fei Weaver Performed By: Yamilka Paniagua, JUDI, RVT Ankle Brachial Index 10/04/24 07:51 Interpretation Summary Right FARSHAD 1.07, normal. Doppler/PVR waveforms of the right ankle mildly diminished at rest. Left FARSHAD 0.45, severe arterial insufficiency. Doppler/PVR waveforms of the left ankle severely diminished at rest. Ordering Physician: Briseida Morales Referring Physician: Fei Weaver Performed By: Brenda Ríos RVT
[2024-10-05] MEDS: DiphenhydrAMINE 50 MG/ML Syringe 25 MG IV ×2 (14:04→22:44)
[2024-10-05 14:19] LABS: Pathologist Review Reviewed
[2024-10-05 16:59] LABS: Vancomycin, Trough Level 15.1 ug/mL (5.0-15.0)
--- NOTE | 2024-10-05 17:07 | PCM.RX.CS ---
Consult Antibiotic Management Pharmacy has been consulted to manage selected antibiotic: Vancomycin Type of Intervention Type of Consult: Follow-up Labs Labs: Sodium 130 mmol/L (136-145) L 10/05/24 07:08 Potassium 3.6 mmol/L (3.5-5.1) 10/05/24 07:08 Chloride 100 mmol/L (98-107) 10/05/24 07:08 Carbon Dioxide 23.0 mmol/L (21.0-32.0) 10/05/24 07:08 Anion Gap 7 (5-15) 10/05/24 07:08 BUN 23 mg/dL (7-18) H 10/05/24 07:08 Creatinine 0.55 mg/dL (0.55-1.02) 10/05/24 07:08 Est GFR (MDRD) Af Amer 140 mL/min (>60) 10/05/24 07:08 Est GFR (MDRD) Non-Af 116 mL/min (>60) 10/05/24 07:08 BUN/Creatinine Ratio 41.7 RATIO (10-20) H 10/05/24 07:08 Glucose 77 mg/dL (74-106) 10/05/24 07:08 Vancomycin Trough 15.1 ug/mL (5.0-15.0) H 10/05/24 16:25 Microbiology Microbiology: Microbiology 10/03/24 19:45 Wound - Left Foot Gram Stain - Final 10/03/24 19:45 Wound - Left Foot Wound Culture - 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 Gram negative yakelin Gram negative yakelin#2 10/03/24 16:37 Urine, Catheterized Urine Culture - Preliminary ESBL Escherichia coli Mixed Gram Positive Organisms 10/03/24 19:45 Wound - Left Foot Skin and Soft Tissue MRSA/MSSA (PCR - Final Pharmacy Plan for Drug Dosing Pharmacy Plan for Drug Dosing: VANCOMYCIN LEVEL RECEIVED Current Vancomycin Dose: 1000MG Q24 Number of Doses Received: 2 Vancomycin Level: 15.1 MG/DL Hours Since Last Dose: 24 Renal Function: SCR 0.55MG/DL, CRCL 49 ML/MIN Renal Function Trend: IMPROVED Lab/Micro: GNR WOUND CX Vancomycin Plan/Comments: 24 hour trough is therapeutic (goal 15-20). Will continue current dosing a get a level in 2 days. Pending Level: 10/07/24 @ 1630 Pharmacy Service will continue to monitor and adjust dosing as required.
[2024-10-05] MEDS: Vancomycin IV 1,000 MG/200 ML BAG 200 MG IV (18:14)
[2024-10-05] MEDS: 0.9% Normal Saline (1000mL) 1,000 ML 125 ML IV (18:55)
[2024-10-05 21:05] LABS: Partial Thromboplast Time 45.5 Seconds (24.1-36.2)
[2024-10-05] MEDS: Atorvastatin Calcium 80 MG Tablet PO (21:17)
[2024-10-05] MEDS: Cefepime HCl 1 GM in 0.9% Normal Saline (50mL MB+) 50 ML IV (22:43)
[2024-10-06] VITALS (22 sets, daily range): BP systolic 78–116; BP diastolic 56–83; PULSE 106–144; RESP 13–20; TEMP 36.1–36.8; O2SAT 91–99; BMI 18.3
[2024-10-06 05:52] LABS: Hematocrit 32.2 % (37-47); Hemoglobin 11.2 g/dL (12.0-15.0); Mean Corp Hgb Conc 34.8 g/dL (32-36); POSITIVE DIFFERENTIAL YES; Platelet Count 243 K/mm3 (150-450); RBC Distribution Width CV 16.3 % (11.6-14.6); RBC Distribution Width SD 54.4 fl (35.1-43.9); White Blood Count 18.8 K/mm3 (4.4-11.0)
[2024-10-06 06:06] LABS: Partial Thromboplast Time 82.6 Seconds (24.1-36.2)
[2024-10-06] MEDS: HEPARIN/D5w 25,000 UNITS 25,000 UNITS/250 ML IV.SOLN. 7.5 UNITS CONT INF (06:27)
[2024-10-06 06:29] LABS: Anion Gap 7 (5-15); BUN 23 mg/dL (7-18); BUN/Creat Ratio 43.2 RATIO (10-20); Chloride 103 mmol/L (98-107); Creatinine, Serum 0.53 mg/dL (0.55-1.02); EST Glomerular Filtration Rate 121 mL/min (>60); Est Glom Filt Rate - Afr Amer 146 mL/min (>60); Estimated Creatinine Clearance 49.14 ml/min; Glucose 91 mg/dL (74-106); Potassium 3.7 mmol/L (3.5-5.1); Sodium Level 131 mmol/L (136-145)
[2024-10-06] MEDS: oxyCODONE 5 MG Tablet PO ×3 (06:30→20:37)
[2024-10-06] MEDS: Acetaminophen 500 MG Tablet 1000 MG PO ×3 (06:30→20:53)
[2024-10-06] MEDS: 0.9% Saline Lock 10 ML Syringe IV ×3 (06:34→13:38)
[2024-10-06] MEDS: Ipratropium/Albuterol Sulfate 3 ML AMPUL.NEB INHALATION ×3 (07:25→19:50)
--- NOTE | 2024-10-06 07:54 | PN_ITS ---
Subjective Subjective Pain in lower extremities today. Looks much better overall and able to communicate clearly. A&0 x 4. Understands her problems with the lower extremity wound. Understands risks/benefits/and alternatives. Objective Data Objective Data Vital Signs: Vital Signs Temp Pulse Resp BP Pulse Ox O2 Del Method O2 Flow Rate 97.6 F L 124 H 16 105/71 92 Nasal Cannula 2 10/06/24 06:00 10/06/24 06:00 10/06/24 06:00 10/06/24 06:00 10/06/24 06:00 10/06/24 06:00 10/06/24 06:00 Oxygen Flow Rate (L/min) 2 Oxygen Delivery Method Nasal Cannula Weight: 103 lb 6.349 oz Body Mass Index (BMI) 18.3 Intake & Output: Intake and Output for Last 24 Hours 10/04/24 10/05/24 10/06/24 23:59 23:59 23:59 Intake Total 927.75 / 1127.75 790.00 / 1010.00 1330.38 / 1330.38 Output Total 1750 / 1750 400 / 500 450 / 450 Balance -822.25 / -622.25 390.00 / 510.00 880.38 / 880.38 Medical Nutrition Assessment Dietitian: Malnutrition Criteria Met Start: 10/04/24 16:30 Freq: Status: Active Protocol: Document 10/04/24 16:31 RMA (Rec: 10/04/24 16:31 RMA [id number]) Nutrition Malnutrition Evidence of Malnutrition Exists Yes Malnutrition (severe): Chronic Evidenced By Suboptimal Energy Intake ( Severe),Weight Loss (Severe), Physical Changes (Moderate) Clinical Problem Chronic Disease or Condition Related Malnutrition Etiology severe protein-calorie malnutrition in the context of chronic disease related to inadequate energy/oral intake Signs/Symptoms as evidenced by ~20% unintentional weight loss x less than 6 months, BMI 18.6 and PO meeting less than 50% estimated nutrition needs x 3- 4 months Status Active Problem Recommendation Dietitian Recommendations/Changes Liberalize diet to Regular and encourage improved PO as tolerated. Will d/c ensure compact 4 times per day w/ medpass. Will add Navjot BID with medpass to support wound healing. Will add 240mL Ensure plus high protein w/ Breakfast and Dinner meals. Adjust ONS as needed to support weight gain. Lab / Micro Data 10/06/24 05:05 10/06/24 05:05 Labs: Laboratory Results - last 24 hr 10/04/24 02:37: Diff Path Review Reviewed 10/05/24 07:08: Differential Comment COMMENT, Diff Path Review Reviewed, APTT 54.3 H 10/05/24 13:28: APTT 69.2 H 10/05/24 16:25: Vancomycin Trough 15.1 H 10/05/24 19:58: APTT 45.5 H 10/06/24 05:05: WBC 18.8 H, RBC 3.50 L, Hgb 11.2 L, Hct 32.2 L, MCV 92.0, MCH 32.0, MCHC 34.8, RDW Std Deviation 54.4 H, RDW Coeff of Lisbeth 16.3 H, Plt Count 243, MPV 10.0, Neut % (Auto) Not Reportable, APTT 82.6 H, Sodium 131 L, Potassium 3.7, Chloride 103, Carbon Dioxide 21.0, Anion Gap 7, BUN 23 H, C reatinine 0.53 L, Estim Creat Clear Calc 49.14, Est GFR (MDRD) Af Amer 146, Est GFR (MDRD) Non-Af 121, BUN/Creatinine Ratio 43.2 H, Glucose 91, Calcium 8.0 L Micro: Microbiology 10/03/24 19:45 Wound - Left Foot Gram Stain - Final 10/03/24 19:45 Wound - Left Foot Wound Culture - Preliminary 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 No signs of fluid collection in the wounds at this time. No palpable pedal pulses. Ischemic disease consistent with arterial insufficiency with ischemic toes. Motor exam is limited secondary to the wounds. Able to bend and extend foot, however. Compartments are soft in the legs bilaterally. Sensory exam: Reports normal sensation to light touch in the left lower extremity/foot. RIGHT: Small wound on dorsum, partial thickness, and small wound over lateral ankle that has small eschar. Const alert and oriented x3 Eyes EOMs intact bilaterally Lymph Lymphatic: no lymphadenopathy noted Resp normal respiratory effort Cardio Rate: tachycardic Rhythm: abnormal rhythm Assessment & Plan Assessment/Plan (1) Peripheral vascular disease of lower extremity with ulceration: PLAN: Patient has significant lower extremity wounds far worse on the left than the right. Appear to be full-thickness and there is likely tendon and muscle exposed. Unclear etiology. I spoke with vascular surgery and they think it is both ischemic and pressure related (potential prolonged issues with immobility at home and concern for unstable social situation). My nurse practitioner and I both separately addressed these wounds through conversations with the patient about anticipated operative debridement. We will reiterate this again tomorrow with her. We discussed the risk benefits and alternatives to the OR debridement of the wounds. Plan for operative debridement of the wounds on Thursday, 07 October 2024, or sooner if the patient becomes unstable. Please keep n.p.o. at midnight on Thursday. Plan will be for irrigating wound VAC afterwards. I will discuss extensively the wounds with vascular surgery and we will come up with a plan for wound healing/reconstructive options together following the initial debridement. DISCUSSION FROM 06 OCT 2024: I talked the patient extensively about the risks of surgery, including bleeding, infection, damage to surrounding structures (nreves/muscle), surgical site dehiscence and wound formation, need for wound care, need for repeat operations, failure to obtain the desired result (eventual amputation/no limb salvage), poor scaring, loss of function, damage to nerves/nerve pain, DVT/PE, and the risks of anesthesia including . The benefits and alternatives of this surgery were also discussed. All of their questions were answered, and they agreed to proceed with surgery. NPO at midnight for OR debridement/wash out and VAC placement Anticipate OR Thursday, 09 Oct 2024, for repeat debridement/wash out and VAC placement Charges/Coding Visit Charges Inpatient E&M: 62843 Subs Hosp L2
[2024-10-06 07:59] LABS: Basophil% 0.2 % (0-1); Differential Indicated SCAN CRITERIA MET; Eosinophils% 0.2 % (0-5); Lymphocyte % 3.8 % (19-41); Monocyte% 8.4 % (0-10); Neutrophil % 86.3 % (47-70)
[2024-10-06 08:00] LABS: Basophil# 0.03 X10^3/uL; Eosinophil# 0.03 X10^3/uL; Lymphocyte # 0.72 X10^3/ul (0.83-4.51); Monocyte# 1.58 X10^3/uL; Neutrophil # 16.27 X10^3/uL (2.7-7.7)
[2024-10-06 08:01] LABS: Absolute Lymphocyte Count 0.72 X10^3/uL (0.83-4.51); Absolute Neutrophil Count 16.3 X10^3/uL (2.0-7.7)
--- NOTE | 2024-10-06 08:09 | PN.HOSP_ITS ---
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, left leg (10/03/24) Atherosclerosis of galena arteries of left leg with ulceration of other part of foot (10/03/24) Peripheral vascular disease, unspecified (10/03/24) Local infection of the skin and subcutaneous tissue, unspecified (10/03/24) Pressure ulcer of other site, unstageable (10/03/24) Non-pressure chronic ulcer of right calf with fat layer exposed (10/03/24) Non-pressure chronic ulcer of other part of left foot with unspecified severity (10/03/24) Non-pressure chronic ulcer of unspecified part of unspecified lower leg with unspecified severity (10/03/24) Other specified abnormal findings of blood chemistry (10/03/24) Other injury of unspecified body region, initial encounter (10/03/24) Tobacco use (10/03/24) Subjective Subjective Feeling anxious. Objective Data Objective Data Vital Signs: Vital Signs Temp Pulse Resp BP Pulse Ox O2 Del Method O2 Flow Rate 36.4 C L 124 H 16 105/71 92 Nasal Cannula 2 10/06/24 06:00 10/06/24 06:00 10/06/24 06:00 10/06/24 06:00 10/06/24 06:00 10/06/24 06:00 10/06/24 06:00 Oxygen Flow Rate (L/min) 2 Oxygen Delivery Method Nasal Cannula Weight: 46.9 kg Body Mass Index (BMI) 18.3 Intake & Output: Intake and Output for Last 24 Hours 10/04/24 10/05/24 10/06/24 23:59 23:59 23:59 Intake Total 927.75 / 1127.75 790.00 / 1010.00 1330.38 / 1330.38 Output Total 1750 / 1750 400 / 500 450 / 450 Balance -822.25 / -622.25 390.00 / 510.00 880.38 / 880.38 Medical Nutrition Assessment Dietitian: Malnutrition Criteria Met Start: 10/04/24 16:30 Freq: Status: Active Protocol: Document 10/04/24 16:31 RMA (Rec: 10/04/24 16:31 RMA [id number]) Nutrition Malnutrition Evidence of Malnutrition Exists Yes Malnutrition (severe): Chronic Evidenced By Suboptimal Energy Intake ( Severe),Weight Loss (Severe), Physical Changes (Moderate) Clinical Problem Chronic Disease or Condition Related Malnutrition Etiology severe protein-calorie malnutrition in the context of chronic disease related to inadequate energy/oral intake Signs/Symptoms as evidenced by ~20% unintentional weight loss x less than 6 months, BMI 18.6 and PO meeting less than 50% estimated nutrition needs x 3- 4 months Status Active Problem Recommendation Dietitian Recommendations/Changes Liberalize diet to Regular and encourage improved PO as tolerated. Will d/c ensure compact 4 times per day w/ medpass. Will add Navjot BID with medpass to support wound healing. Will add 240mL Ensure plus high protein w/ Breakfast and Dinner meals. Adjust ONS as needed to support weight gain. Lab / Micro Data 10/06/24 05:05 10/06/24 05:05 Labs: Laboratory Results - last 24 hr 10/04/24 02:37: Diff Path Review Reviewed 10/05/24 07:08: Differential Comment COMMENT, Diff Path Review Reviewed, APTT 54.3 H 10/05/24 13:28: APTT 69.2 H 10/05/24 16:25: Vancomycin Trough 15.1 H 10/05/24 19:58: APTT 45.5 H 10/06/24 05:05: WBC 18.8 H, RBC 3.50 L, Hgb 11.2 L, Hct 32.2 L, MCV 92.0, MCH 32.0, MCHC 34.8, RDW Std Deviation 54.4 H, RDW Coeff of Lisbeth 16.3 H, Plt Count 243, MPV 10.0, Immature Gran % (Auto) 1.100 H, Neut % (Auto) 86.3 H, Lymph % (Auto) 3.8 L, [place] % (Auto) 8.4, Eos % (Auto) 0.2, Baso % (Auto) 0.2, Absolute Neuts (auto) 16.3 H, Absolute Lymphs (auto) 0.72 L, Diff Path Review May foll, A PTT 82.6 H, Sodium 131 L, Potassium 3.7, Chloride 103, Carbon Dioxide 21.0, Anion Gap 7, BUN 23 H, Creatinine 0.53 L, Estim Creat Clear Calc 49.14, Est GFR (MDRD) Af Amer 146, Est GFR (MDRD) Non-Af 121, BUN/Creatinine Ratio 43.2 H, Glucose 91, Calcium 8.0 L Micro: Microbiology 10/03/24 19:45 Wound - Left Foot Gram Stain - Final 10/03/24 19:45 Wound - Left Foot Wound Culture - Preliminary ESBL Escherichia coli Providencia rettgeri Pseudomonas spp 10/03/24 16:37 Urine, Catheterized Urine Culture - Preliminary ESBL Escherichia coli Mixed Gram Positive Organisms 10/03/24 19:45 Wound - Left Foot Skin and Soft Tissue MRSA/MSSA (PCR - Final Rhythm Strip Rhythm Strip: A-fib Rate: 165 Ectopy: None Physical Exam Const alert Constitutional Narrative: anxious. more alert and interactive today. HEENT head/scalp atraumatic and moist oral mucous membranes Eyes PERRL Resp normal respiratory effort, no retractions, no use of accessory muscles and clear to auscultation bilaterally Cardio Cardio Narrative: irreguarly irregular. GI normal to inspection, nondistended, normoactive bowel sounds, soft to palpation, non-tender and non-distended Extremity Extremity Narrative: cyanosis RLE. left foot wrapped--did not remove. Skin Skin Narrative: images from Dr. Velazquez reviewed: marked skin changes of RLE with full thickness loss posteriorly and laterally down foot, necrosis on on toes and forefoot. Neuro Sensorium / Orientation: awake and alert Psych affect normal Assessment & Plan Assessment/Plan (1) Peripheral vascular disease of lower extremity with ulceration: (2) Wound infection: (3) Sepsis: (4) Atrial fibrillation with RVR: (5) Hyponatremia: (6) Elevated serum creatinine: (7) Hyperkalemia: (8) Lactic acidosis: (9) Elevated troponin: (10) Leukocytosis: PLAN: Plan Sepsis * secondary to bilateral lower extremity wound infection from vascular disease * Meet sepsis criteria with tachycardia, suspected JOHNATHON, lactic acidosis and source * Broad-spectrum antibiotics with vancomycin and cefepime to cover MRSA and Pseudomonas * Wound and blood cultrues negative. MRSA PCR wound negative * Patient received 30 cc/kg body weight * podiatry consult. Wound care. LLE ulcerations * extensive distally and posteriorly * likely a combination of vascular and pressure-related. * seen by Dr. Velazquez, who is planning on debridement on 10/07 * Wound cultures growing out ESBL E. coli, Providencia rettgeri, Pseudomonas * current abx with meropenem and vancomycin A-fib with RVR * echo shows an EF 62%. No regional wall motion abnormalities. * on heparin gtt and PO metoprolol * transition to PO oral anticoagulants when further surgery not indicated. Hyponatremia * suspect hypovolemic hyponatremia improved with IVF. * Monitor Hyperkalemia * improved with IVF. Cardiac vegetation * 2d Echo showed a ventricular septum mobile material 0.5 x 0.4 cm. * cannot rule out endocarditis * BCx pending * ID consult. Elevated troponin * Mild at 55. Resolved. Peripheral vascular disease * Patient was placed on Plavix, aspirin, Pletal, and rosuvastatin. Does not appear to be taking any of these. Heparin drip for now. Start aspirin 81 mg daily and will hold off her Plavix for now. Await vascular surgery input but would like to avoid triple therapy if possible. Check lipids. Start atorvastatin 80 mg * Seen by vascular surgery. Plan for angiogram to LLE, but high concern pt will require amputation. Seen by Dr. Velazquez Generalized weakness/debility * PT/OT consultation * Social work/case management consultation as I do highly anticipate patient will likely need placed at discharge Alcohol use * CIWA protocol. DVT prophylaxis: not indicated as anticoagulated. CODE STATUS: full code. Charges/Coding Visit Charges Inpatient E&M: 02297 Subs Hosp L2
[2024-10-06] MEDS: Gabapentin 100 MG Capsule PO ×2 (09:17→12:59)
[2024-10-06] MEDS: Metoprolol Tartrate 50 MG Tablet PO ×2 (09:17→22:51)
[2024-10-06] MEDS: Aspirin 81 MG TAB.CHEW PO (09:17)
[2024-10-06] MEDS: Menthol/Lanolin/Calamine/Znox 113 GM Tube 1 APPLIC TOPICAL ×2 (09:18→22:52)
--- NOTE | 2024-10-06 10:12 | PCM.PN.ID ---
Physical Exam Narrative Feeling ok, no fever, no n/v/d. Const alert and no apparent distress General Appearance: cooperative Resp normal air movement and clear to auscultation bilaterally Cardio regular rate and regular rhythm GI soft to palpation, non-tender and non-distended Skin Skin Narrative: BLE wrapped ID ID: Route of nutrition/ use of supplements: [] Nutritional Intake: [] IV Site: [] Rivas Catheter: [] Assessment & Plan Assessment/Plan (1) Peripheral vascular disease of lower extremity with ulceration: (2) Wound infection: PLAN: Infected BLE ulcers related to PVD - wound cx with esbl, change to vanc/warren. Will follow
[2024-10-06] MEDS: Meropenem 1 GM in 0.9% Normal Saline (100mL MB+) 100 ML IV ×2 (13:00→22:10)
--- NOTE | 2024-10-06 13:35 | CASEMGMT ---
ANTHONY met with patient and her Bon. ANTHONY introduced self and role at [facility]. ANTHONY explained SW helps with discharge planning. Patient is not ready, but we need to start thinking about it. ANTHONY explained that patient is going to need 24/7 care at discharge. Patient will have dressing changes, she will need therapy to help her with strengthening and getting around, bathing, using the restroom etc. SW asked patient's if he is going to be able to do this at home. Bon said he won't be able to be there 24/7. He has to work to pay the bills. SW asked if there is anyone else that can help and they said no. SW asked about Medicaid and Bon said he is not applying for Medicaid. 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 Bon said they had a friend that had to sell his house to pay Medicaid back. ANTHONY asked about Medicare and Bon said they never signed up because they never needed any health care. However, they will get Medicare Oct 20. Patient then spoke up and said they have a telephone appt to sign up. SW mentioned halfway facility and private pay costs. Bon said they can't afford that. Patient then asked how is it going to be any worse her going home and managing like she was before. SW explained she came in to take care of her wounds. Should she go home to the same situation she will end up back in the same situation she is now, reversing everything that was done. ANTHONY explained that ANTHONY and the RN CM will continue to follow and assist with d/c planning. SW just wanted them to start thinking about a plan. Patient thanked ANTHONY for checking in with them. SW let patient know if she needs support or needs to talk with someone she is always welcome to ask for social work. Patient thanked ANTHONY stating she appreciates it. Karlene Hernández SENIOR ELECTRICAL DESIGNER [employer]PER[employer]
[2024-10-06] MEDS: LORazepam 0.5 MG Tablet PO ×2 (13:37→23:12)
[2024-10-06] MEDS: Collagenase 30gm Tube 1 APPLIC TOPICAL (14:04)
[2024-10-06 14:17] LABS: Partial Thromboplast Time 56.8 Seconds (24.1-36.2)
[2024-10-06] MEDS: Juven (unflavored) Packet 1 PACKET PO (16:32)
[2024-10-06] MEDS: Vancomycin IV 1,000 MG/200 ML BAG 200 MG IV (17:49)
[2024-10-06] MEDS: Metoprolol Tartrate 5 MG/5 ML Vial IV (19:14)
[2024-10-06 20:39] LABS: Partial Thromboplast Time 51.5 Seconds (24.1-36.2)
[2024-10-06] MEDS: Atorvastatin Calcium 80 MG Tablet PO (20:53)
[2024-10-06] MEDS: Senna/Docusate Sodium 1 Tablet 2 TABLET PO (22:58)
[2024-10-07] VITALS (34 sets, daily range): BP systolic 70–133; BP diastolic 43–100; PULSE 87–147; RESP 12–23; TEMP 36.2–37; O2SAT 92–98; BMI 18.3; BMI 23.6
--- NOTE | 2024-10-07 | IMM_PTH ---
PATIENT: MICHELINE CLEMONS LOC: [facility] U#:[id number] AGE/SX: 69/F ROOM: [facility] RE10/03/[address]: Dr. Yuval Calzada DO : 1955 BED: 1 DIS: 10/09/2024 SPEC #: [id number] RECD: 10/10/24 12:04 STATUS: DANIELLE REQ #: [id number] SWATHI: 10/07/24 00:[address]: Jonatan Velazquez DEPT: IMMUNOHISTOCHEMISTRY RECD BY: Oc Santos ENTERED: 10/10/24 12:04 SP TYPE: IMMUNO OTHR DR: DO Dr. Yuval Campos MD Dr. Farouk Belal, MD Dr. Kathryn Lee, DO Dr. Mayo Garrett, DPM MD Dr. Jonatan Styles MD Dr. Steven Murray, MD Tissues: Skin of leg, NOS Procedures: CK7 (add) CK8 (add) KI-67 (add) MPO (add) P53 (add) Vimentin (add) Pankeratin (initial) Comments: @ Ordering doctor for CK7. edited from to @ by DEION at 10/10/24 1205 @ Ordering doctor for CK8. edited from to @ by DEION at 10/10/24 1205 @ Ordering doctor for KI67. edited from to @ by DEION at 10/10/24 1205 @ Ordering doctor for MPO. edited from to @ by DEION at 10/10/24 1205 @ Ordering doctor for P53. edited from to @ by DEION at 10/10/24 1205 @ Ordering doctor for VIM. edited from to @ by DEION at 10/10/24 1205 @ Ordering doctor for PANK edited from to @ by DEION at 10/10/24 1205 @ Submitting doctor edited from to DR.RSISKA Escobar by DEION at 10/10/24 1205 PHYSICIAN & [place] [id number] SPECIMEN INFORMATION: Tissue Source: Left lower leg wound biopsy Clinical Info: Peripheral vascular disease of lower extremity with ulceration, wound infection, sepsis Specimen Number: [id number] CPT code: 37262,34991r5 METHODOLOGY: Deparaffinized sections of prefer/formalin-fixed tissue or PAP/DQ stained slides are incubated with monoclonal/polyclonal antibodies/oligonucleotide probes. Localization is made via biotin free immunoperoxidase method. Appropriate controls are performed and reacted as expected. Results on target cell population are indicated in the following table: RESULTS: ANTIBODY / CLONE RESULT AE1-3 (AE1/AE3/PCK26) negative CK7 (OV-TL12/30) negative CK8 ([id number]) negative CD45 (RP2/18) positive, focal MPO (polyclonal) positive P53 (DO-7) negative, null pattern Ki-67 (30-9) negative Vimentin (V9) positive These tests were developed and their performance characteristics determined by [facility]. They may not have been cleared or approved by the U.S. Food and Drug Administration. The FDA has determined that such clearance or approval is not necessary. The above immunohistochemical/dualISH markers are ordered and reviewed by the Pathologist. INTERPRETATION: Left lower leg wound, biopsy: No evidence of malignancy. AM/mr 10/11/2024
[2024-10-07] MEDS: 0.9% Normal Saline (1000mL) 1,000 ML 999 ML IV (02:13)
[2024-10-07] MEDS: Digoxin 250 MCG/ML Ampul IV ×2 (02:18→05:55)
--- NOTE | 2024-10-07 02:52 | EKG12_ITS ---
Test Reason : PRE-OP Blood Pressure : */* mmHG Vent. Rate : 133 BPM Atrial Rate : * BPM P-R Int : * ms QRS Dur : 78 ms QT Int : 290 ms P-R-T Axes : * -37 141 degrees QTcB Int : 431 ms Atrial fibrillation with rapid ventricular response Left axis deviation Minimal voltage criteria for LVH, may be normal variant ( [place] product ) ST & T wave abnormality, consider lateral ischemia Abnormal ECG When compared with ECG of 05-Oct-2024 04:35, T wave inversion more evident in Lateral leads Confirmed by JONO ESCOBAR ([id number]), offline editor TINY ARRIAGA ([id number]) on 10/10/2024 6:13:00 AM Referred By: LORNA Confirmed By: JONO ESCOBAR
[2024-10-07 04:21] LABS: Absolute Lymphocyte Count 0.91 X10^3/uL (0.83-4.51); Basophil# 0.03 X10^3/uL; Basophil% 0.2 % (0-1); Eosinophil# 0.05 X10^3/uL; Eosinophils% 0.3 % (0-5); Hematocrit 31.4 % (37-47); Hemoglobin 10.9 g/dL (12.0-15.0); Lymphocyte # 0.91 X10^3/ul (0.83-4.51); Lymphocyte % 4.8 % (19-41); Mean Corp Hgb Conc 34.7 g/dL (32-36); Mean Corpuscular Hgb 31.9 pg (27.0-32.0); Mean Corpuscular Volume 91.8 fL (81-99); Mean Platelet Vol. 10.1 fl (6.2-12.0); Monocyte# 1.65 X10^3/uL; Monocyte% 8.7 % (0-10); NRBC Flagged by Analyzer 0 % (0-5); Neutrophil # 16.01 X10^3/uL (2.7-7.7); Neutrophil % 84.6 % (47-70); POSITIVE DIFFERENTIAL YES; Platelet Count 253 K/mm3 (150-450); RBC Distribution Width CV 16.3 % (11.6-14.6); RBC Distribution Width SD 54.4 fl (35.1-43.9); Red Blood Count 3.42 M/mm3 (4.2-5.4); White Blood Count 18.9 K/mm3 (4.4-11.0)
[2024-10-07 04:29] LABS: Differential Indicated SCAN CRITERIA MET
[2024-10-07 04:44] LABS: AST(SGOT) 57 U/L (15-37); Alanine Aminotransfer ALT/SGPT 27 U/L (13-56); Albumin, Serum 1.4 g/dL (3.2-5.0); Alkaline Phosphatase 197 U/L (45-117); Anion Gap 7 (5-15); BUN 24 mg/dL (7-18); BUN/Creat Ratio 42.9 RATIO (10-20); Bilirubin, Direct 0.23 mg/dL (0.00-0.30); Chloride 103 mmol/L (98-107); Creatinine, Serum 0.56 mg/dL (0.55-1.02); EST Glomerular Filtration Rate 114 mL/min (>60); Est Glom Filt Rate - Afr Amer 138 mL/min (>60); Estimated Creatinine Clearance 63.54 ml/min; Globulin 2.9 g/dL (2.2-4.2); Glucose 108 mg/dL (74-106); International Normalized Ratio 1.3; Potassium 3.9 mmol/L (3.5-5.1); Protein, Total 4.3 g/dL (6.4-8.2); Prothrombin Time (Protime)PT. 16.4 SECONDS (11.7-14.9); Sodium Level 131 mmol/L (136-145)
[2024-10-07] MEDS: Meropenem 1 GM in 0.9% Normal Saline (100mL MB+) 100 ML IV ×3 (04:57→20:17)
[2024-10-07 05:10] LABS: Partial Thromboplast Time > 200.0 Seconds (24.1-36.2)
[2024-10-07 06:29] LABS: Partial Thromboplast Time 33.6 Seconds (24.1-36.2)
[2024-10-07 06:51] LABS: Anisocytosis 1+; Bite Cell RARE; Differential Comment SCANNED; Ovalocyte 1+; Platelet Estimate ADEQUATE (ADEQ); Polychromasia RARE; Tear Drop Cell RARE
[2024-10-07] MEDS: dilTIAZem 25 MG/5 ML Vial 15 MG IV BOLUS (07:10)
--- NOTE | 2024-10-07 07:12 | PCM.PRE.AN2 ---
ASA Classification* ASA Classification ASA Classification: 3 Assessment & Plan Anesthesia* Anesthesia Assessment Anesthesia Assessment: Discussed sedation and/or anesthesia options, risks, benefits, and alternatives with patient/parents/legal guardian/POA. Questions invited. The patient/parents/legal guardian/POA seems to understand and agrees to proceed with anesthesia plan. Reviewed the physical assessment, medical history, allergy history and patient home medications list prior to surgery/procedure/anesthetic and documented any changes. Performed airway and anesthesia risk assessments. Anesthesia Type Anesthesia Type: General (Rapid rate, Afib. Will give cardizem pre op for rate control) Anesthesia Focused Assessment* Temperature: 97.4 F Pulse Rate: 132 Blood Pressure: 107/71 Respiratory Rate: 14 Pulse Ox: 96 Airway Assessment Mouth opens: >3 cm Mallampati Score: II Focused Labs Anesthesia Preop lab: CBC WBC 18.9 K/mm3 (4.4-11.0) H 10/07/24 03:24 RBC 3.42 M/mm3 (4.2-5.4) L 10/07/24 03:24 Hgb 10.9 g/dL (12.0-15.0) L 10/07/24 03:24 Hct 31.4 % (37-47) L 10/07/24 03:24 Plt Count 253 K/mm3 (150-450) 10/07/24 03:24 CHEMISTRY Potassium 3.9 mmol/L (3.5-5.1) 10/07/24 03:24 Sodium 131 mmol/L (136-145) L 10/07/24 03:24 Magnesium 2.1 mg/dL (1.6-2.6) 10/04/24 02:37 Phosphorus 3.3 mg/dL (2.5-4.9) 10/04/24 02:37 BUN 24 mg/dL (7-18) H 10/07/24 03:24 Creatinine 0.56 mg/dL (0.55-1.02) 10/07/24 03:24 Glucose 108 mg/dL (74-106) H 10/07/24 03:24 TSH 4.610 uIU/mL (0.358-3.740) H 10/04/24 02:37 COAG PT 16.4 SECONDS (11.7-14.9) H 10/07/24 03:24 Pre-Assessment Diagnosis/Proposed Procedure Planned Operative Procedure(s): I&D lower extremity wound, Vac placment Anesthesia History Anesthesia History - herb counselor: Anesthesia History - herb counselor Hx Hospitalization Any Problems With Anesthesia No 10/07/24 00:37 Cholinesterase deficiency No 10/07/24 00:37 You/Your Family Experience No 10/07/24 00:37 fever (hyperthermia) with Relationship Recent Exposure to Contagious No 10/07/24 00:37 Disease Does patient have nerve No 10/07/24 00:37 stimulator Patient instructed to have No 10/07/24 00:37 device shut off --Does patient have Pacemaker No 10/07/24 05:03 or ICD? When Was Last Pacemaker Check QUESTION #4 FULL TEXT: You/Your Family Experience fever (hyperthermia) with Anesthesia Last Oral Intake Last Oral intake: Last Oral Intake NPO since 00:00 10/07/24 05:03 Meds taken in AM with sips of No 10/07/24 05:03 water? Meds patient instructed to take am of surgery PONV PONV - herb counselor: PONV - herb counselor Female HX of Motion Sickness HX of N/V After Surgery Non-Smoker Duration of Surgery greater than 60 minutes Number of Risk Factors PONV Score Height & Weight Height & Weight: Anesthesia: Height & Weight Height 5 ft 3 in 10/07/24 05:03 Weight: 60.555 kg 10/07/24 05:03 Body Mass Index (BMI) 23.6 10/07/24 05:03 Respiratory Assessment Respiratory Assessment - herb counselor: Respiratory Tract Infection Hx - herb counselor Hx Respiratory Tract Infection No 10/07/24 00:37 STOP Sleep Apnea STOP Sleep Apnea - herb counselor: STOP Sleep Apnea - herb counselor Hx Hypertension No 10/05/24 10:17 Hx Sleep Apnea No 10/03/24 19:34 CPAP BIPAP Do you snore loudly (louder No 10/03/24 19:34 than talking or can be heard Do you often feel tired/ Yes 10/03/24 19:34 fatigued/ sleepy during daytime? Has anyone observed you stop No 10/03/24 19:34 breathing during sleep? STOP Results Negative 10/03/24 19:34 QUESTION #5 FULL TEXT : Do you snore loudly (louder than talking or can be heard through closed doors)? Tobacco Use History Tobacco Use History - herb counselor: Tobacco Use History - herb counselor Tobacco Use Smoking Status Current every day smoker 10/05/24 08:12 Hx Tobacco Use Yes 10/03/24 19:34 Years Smoking Packs Smoked per Day Smoking Cessation Date was within the last 15 years Hx Smoking Cessation Date Hx Smoking Cessation Counseling Hematologic Medial History Hematologic Hx - herb counselor: Hematologic Medical Hx - program analyst Hx of Blood Transfusion No 10/03/24 19:34 Hx of Transfusion in last 3 No 10/03/24 19:34 Months Date of Last Transfusion (if within last 3 months) Ever experience any problems No 10/03/24 19:34 with transfusion(s)? Specify any problems Hx of Preganancy in last 3 N/A 10/03/24 19:34 Months Nurse Filling Out Transfusion FSTEINER 10/03/24 19:34 & Questions: Date: 10/03/24 10/03/24 19:34 Time: 19:37 10/03/24 19:34 Patient unable to answer at this time (ie. confused, unrespo /Reproduction History /Reproductive History - herb counselor: /Reproductive Hx- herb counselor Hx Now No 10/07/24 00:37 Gestational Age (in weeks): EDC: Hx Hx Para Hx Section SAB No 10/07/24 00:37 Active Medications Active Medications: Current Medications Generic Name Dose Route Start Last Admin Trade Name Freq PRN Reason Stop Dose Admin Acetaminophen 1,000 mg 10/03/24 22:00 10/07/24 05:55 Acetaminophen 500 Mg Tablet PO Not Given Q8 BRUCE Albuterol Sulfate 2.5 mg 10/03/24 19:17 Albuterol 2.5 Mg/3 Ml Vial.Neb. INHALATION Q2H PRN PRN SOB &/OR WHEEZING Albuterol/Ipratropium 3 ml 10/03/24 19:17 10/06/24 19:50 Ipratropium/Albuterol Sulfate 3 Ml Ampul.Neb INHALATION 3 ml Q6HWA.RT BRUCE Administration Aspirin 81 mg 10/04/24 08:00 10/06/24 09:17 Aspirin 81 Mg Tab.Chew PO 81 mg BREAKFAST BRUCE Administration Atorvastatin Calcium 80 mg 10/03/24 22:00 10/06/24 20:53 Atorvastatin Calcium 80 Mg Tablet PO 80 mg QHS BRUCE Administration Calamine/Phenol 1 applic 10/04/24 10:00 10/06/24 22:52 Menthol/Lanolin/Calamine/Znox 113 Gm Tube TOPICAL 1 applic BID BRUCE Administration Protocol Collagenase 1 applic 10/06/24 10:00 10/06/24 14:04 Collagenase 30gm Tube TOPICAL 1 applic DAILY BRUCE Administration Protocol Diphenhydramine HCl 25 mg 10/04/24 01:13 10/05/24 22:44 Diphenhydramine 50 Mg/Ml Syringe IV 25 mg Q4H PRN PRN Administration ITCHING Gabapentin 100 mg 10/04/24 08:00 10/06/24 16:32 Gabapentin 100 Mg Capsule PO Not Given TIDCM [facility] Heparin Sodium (Porcine) 0 unit 10/03/24 19:35 10/04/24 19:47 Heparin Injection (Vial) 5,000 Unit/Ml Vial IV 1,000 unit UD PRN Administration dose adjustment Protocol Hydromorphone HCl 0.5 mg 10/03/24 19:17 Hydromorphone 0.5 Mg/0.5 Ml Syringe IV Q3H PRN PRN Pain Score 6-10 Heparin Sodium/Dextrose 25,000 units in 250 mls @ 5.5 mls/hr 10/03/24 19:17 10/07/24 01:50 CONT INF 0 units/hr .[id number] BRUCE 0 mls/hr Titration Protocol As Directed Vancomycin IV-PHARMACY TO DOSE 500 mls @ 250 mls/hr 10/03/24 19:17 1 each/ Sodium Chloride IV X1 PRN Rx to Dose Protocol Sodium Chloride 500 mls @ 15 mls/hr 10/03/24 19:20 IV .[id number] PRN Saline Flush Sodium Chloride 500 mls @ 15 mls/hr 10/03/24 19:20 IV .[id number] PRN Additional IVPB Infusion Vancomycin HCl 1,000 mg in 200 mls @ 200 mls/hr 10/04/24 17:00 10/06/24 19:23 Vancomycin IV Infused Q24H BRUCE Infusion Meropenem 1 gm/ Sodium 120 mls @ 33 mls/hr 10/06/24 14:00 10/07/24 04:57 Chloride IV 33 mls/hr Q8 BRUCE Administration L-Arginine/L-Glutamine/Calcium HMB 1 packet 10/04/24 17:00 10/06/24 16:32 Navjot (Unflavored) Packet PO 1 packet BIDCM BRUCE Administration Lorazepam 0.5 mg 10/06/24 13:21 10/06/24 23:12 Lorazepam 0.5 Mg Tablet PO 0.5 mg Q6H PRN PRN Administration ANXIETY Melatonin 3 mg 10/03/24 19:17 Melatonin 3 Mg Tablet PO QHS PRN PRN INSOMNIA Metoprolol Tartrate 50 mg 10/04/24 22:00 10/06/24 22:51 Metoprolol Tartrate 50 Mg Tablet PO 50 mg BID BRUCE Administration Protocol Metoprolol Tartrate 5 mg 10/06/24 18:59 10/06/24 19:14 Metoprolol Tartrate 5 Mg/5 Ml Vial IV 5 mg Q6 PRN Administration HR sustaining >120 Protocol Nicotine 21 mg 10/03/24 22:30 10/06/24 09:18 Nicotine 21 Mg Patch TD 21 mg DAILY BRUCE Administration Nystatin 500,000 unit 10/07/24 10:00 Nystatin 500,000 Unit/5 Ml Udc PO 4X/DAY BRUCE Ondansetron HCl 4 mg 10/03/24 19:17 Ondansetron 4 Mg/2 Ml Vial IV Q8H PRN PRN NAUSEA/VOMITING Oxycodone HCl 5 mg 10/03/24 19:17 10/06/24 20:37 Oxycodone 5 Mg Tablet PO 5 mg Q4H PRN PRN Administration Pain Score 4-10 Senna/Docusate Sodium 2 tablet 10/03/24 19:17 10/06/24 22:58 Senna/Docusate Sodium 1 Tablet PO 2 tablet BID PRN PRN Administration Constipation Sodium Chloride 10 - 40 ml 10/03/24 19:20 10/06/24 13:38 0.9% Saline Lock 10 Ml Syringe IV 10 ml UD PRN Administration SALINE FLUSH Vancomycin Protocol 1 lab 10/07/24 14:30 Vancomycin Trough/Random Due MC 10/07/24 18:30 DAILY BRUCE PFSH Medical History Alcohol abuse Peripheral vascular disease Tobacco use Mitral valve prolapse Home Medications ?Medication ?Instructions ?Recorded ?Last Taken ?Type aspirin 325 mg tablet 325 mg PO QDAY 06/24/24 Unknown History atenolol 50 mg tablet 50 mg PO QDAY 06/24/24 Unknown History cyclobenzaprine 10 mg tablet 10 mg PO TID PRN muscle spasm 06/24/24 Unknown History sulfamethoxazole 800 1 tab PO DAILY PRN prevent uti 06/24/24 Unknown History mg-trimethoprim 160 mg tablet Allergy/AdvReac Type Severity Reaction Status Date / Time latex Allergy Intermediate Rash Verified 10/03/24 15:48 Penicillins Allergy Intermediate Rash Verified 10/03/24 15:48 Family History Other Hypertension Surgical History History of tonsillectomy H/O section Social History adopted: Yes Smoking Status: Current every day smoker tobacco type: cigarettes quit status: has quit before alcohol intake: current details: glass of wine with supper daily substance use type: does not use Review of Systems (Anesthesia) ROS Narrative System reviewed and no additional complaints, except as documented.
--- NOTE | 2024-10-07 07:25 | HP.PCM.SX_ITS ---
HPI - General General Date of Admission: 10/03/24 Chief Complaint: Shortness of breath HPI Narrative MICHELINE CLEMONS, is a 69 F who presents for left lower extremity debridement today in the OR. She is currently in atrial fibrillation with RVR (140s), but rate is coming down with Diltiazem ggt. She currently has a WBC of 19 K and there is concern that the wounds are causing her systemic symptoms including the RVR 2/2 sepsis. I discussed with anesthesia, and the attending agrees that we are doing the right thing by proceeding with I&D of the left lower extremity. Patient and her in agreement too (discussed this morning in person with them). [facility] Medical History Alcohol abuse Peripheral vascular disease Tobacco use Mitral valve prolapse Home Medications ?Medication ?Instructions ?Recorded ?Last Taken ?Type aspirin 325 mg tablet 325 mg PO QDAY 06/24/24 Unknown History atenolol 50 mg tablet 50 mg PO QDAY 06/24/24 Unknown History cyclobenzaprine 10 mg tablet 10 mg PO TID PRN muscle spasm 06/24/24 Unknown History sulfamethoxazole 800 1 tab PO DAILY PRN prevent uti 06/24/24 Unknown History mg-trimethoprim 160 mg tablet Allergy/AdvReac Type Severity Reaction Status Date / Time latex Allergy Intermediate Rash Verified 10/03/24 15:48 Penicillins Allergy Intermediate Rash Verified 10/03/24 15:48 Family History Other Hypertension Surgical History History of tonsillectomy H/O section Social History adopted: Yes Smoking Status: Current every day smoker tobacco type: cigarettes quit status: has quit before alcohol intake: current details: glass of wine with supper daily substance use type: does not use Vital Signs Vital Signs Vital Signs: 10/06/24 09:00 10/06/24 09:17 10/06/24 09:23 Temperature 98.1 F Temperature Source Temporal Pulse Rate 123 H 117 H Pulse Strength Respiratory Rate 18 Respiratory Effort Respiratory Depth Respiratory Pattern Blood Pressure 91/67 91/67 Blood Pressure Mean 75 Blood Pressure Source Monitor Blood Pressure Position Semi-Fowlers Blood Pressure Location Left Arm Pulse Ox 95 Oxygen Delivery Method Nasal Cannula Oxygen Flow Rate (L/min) 2 2 10/06/24 09:26 10/06/24 10:00 10/06/24 10:00 Temperature 98.1 F Temperature Source Temporal Pulse Rate 138 H Pulse Strength Doppler Respiratory Rate 17 Respiratory Effort Respiratory Depth Respiratory Pattern Blood Pressure 83/62 L Blood Pressure Mean 69 Blood Pressure Source Monitor Blood Pressure Position Semi-Fowlers Blood Pressure Location Left Arm Pulse Ox 94 Oxygen Delivery Method Nasal Cannula Oxygen Flow Rate (L/min) 2 2 10/06/24 10:00 10/06/24 11:00 10/06/24 13:00 Temperature 98.0 F 98.0 F Temperature Source Oral Temporal Pulse Rate 130 H 114 H Pulse Strength Respiratory Rate 16 13 Respiratory Effort Normal Non-Labored Respiratory Depth Normal Respiratory Pattern Normal Blood Pressure 102/65 99/80 Blood Pressure Mean 77 86 Blood Pressure Source Monitor Monitor Blood Pressure Position Semi-Fowlers Semi-Fowlers Blood Pressure Location Left Arm Left Arm Pulse Ox 99 95 Oxygen Delivery Method Nasal Cannula Nasal Cannula Nasal Cannula Oxygen Flow Rate (L/min) 2 2 2 10/06/24 13:02 10/06/24 14:00 10/06/24 15:00 Temperature Temperature Source Pulse Rate 108 H 128 H 129 H Pulse Strength Respiratory Rate 20 H 15 16 Respiratory Effort Respiratory Depth Respiratory Pattern Normal Blood Pressure 91/66 92/65 Blood Pressure Mean 74 74 Blood Pressure Source Monitor Monitor Blood Pressure Position Semi-Fowlers Semi-Fowlers Blood Pressure Location Left Arm Left Arm Pulse Ox 93 91 Oxygen Delivery Method Nasal Cannula Nasal Cannula Oxygen Flow Rate (L/min) 2 2 10/06/24 16:00 10/06/24 17:00 10/06/24 18:00 Temperature 97.5 F L 97.2 F L Temperature Source Temporal Temporal Pulse Rate 120 H 135 H 125 H Pulse Strength Respiratory Rate 18 16 13 Respiratory Effort Respiratory Depth Respiratory Pattern Blood Pressure 89/68 L 96/70 91/72 Blood Pressure Mean 75 78 78 Blood Pressure Source Monitor Monitor Monitor Blood Pressure Position Semi-Fowlers Semi-Fowlers Semi-Fowlers Blood Pressure Location Left Arm Left Arm Left Arm Pulse Ox 97 95 Oxygen Delivery Method Nasal Cannula Nasal Cannula Nasal Cannula Oxygen Flow Rate (L/min) 2 2 2 10/06/24 19:00 10/06/24 19:14 10/06/24 19:50 Temperature 98.2 F Temperature Source Temporal Pulse Rate 144 H 144 H 120 H Pulse Strength Respiratory Rate 18 14 Respiratory Effort Respiratory Depth Respiratory Pattern Normal Blood Pressure 95/71 95/71 Blood Pressure Mean 79 Blood Pressure Source Monitor Blood Pressure Position Semi-Fowlers Blood Pressure Location Left Arm Pulse Ox 92 Oxygen Delivery Method Nasal Cannula Oxygen Flow Rate (L/min) 2 10/06/24 21:00 10/06/24 22:00 10/06/24 22:00 Temperature 97.2 F L Temperature Source Temporal Pulse Rate 132 H 138 H Pulse Strength Doppler Respiratory Rate 20 H Respiratory Effort Normal Respiratory Depth Respiratory Pattern Blood Pressure 96/75 Blood Pressure Mean 82 Blood Pressure Source Monitor Blood Pressure Position Semi-Fowlers Blood Pressure Location Right Arm Pulse Ox 96 Oxygen Delivery Method Nasal Cannula Nasal Cannula Oxygen Flow Rate (L/min) 2 10/06/24 22:00 10/06/24 22:51 10/06/24 23:00 Temperature 97.1 F L 97.1 F L Temperature Source Temporal Temporal Pulse Rate 129 H 138 H 138 H Pulse Strength Respiratory Rate 16 16 Respiratory Effort Respiratory Depth Respiratory Pattern Blood Pressure 78/56 L 116/62 116/60 Blood Pressure Mean 63 78 Blood Pressure Source Monitor Monitor Blood Pressure Position Semi-Fowlers Semi-Fowlers Blood Pressure Location Right Arm Right Arm Pulse Ox 97 96 Oxygen Delivery Method Nasal Cannula Nasal Cannula Oxygen Flow Rate (L/min) 2 10/07/24 00:00 10/07/24 01:23 10/07/24 02:18 Temperature 97.2 F L 97.2 F L Temperature Source Temporal Temporal Pulse Rate 130 H 140 H 138 H Pulse Strength Respiratory Rate 16 16 Respiratory Effort Respiratory Depth Respiratory Pattern Blood Pressure 101/69 86/58 L 81/43 L Blood Pressure Mean 79 67 Blood Pressure Source Monitor Monitor Blood Pressure Position Semi-Fowlers Semi-Fowlers Blood Pressure Location Left Arm Right Arm Pulse Ox 96 97 Oxygen Delivery Method Nasal Cannula Nasal Cannula Oxygen Flow Rate (L/min) 2 2 10/07/24 02:22 10/07/24 04:22 10/07/24 05:03 Temperature 97.2 F L 97.2 F L 97.2 F L Temperature Source Temporal Temporal Temporal Pulse Rate 126 H 133 H 133 H Pulse Strength Respiratory Rate 12 15 14 Respiratory Effort Respiratory Depth Respiratory Pattern Blood Pressure 103/64 105/80 105/80 Blood Pressure Mean 77 88 88 Blood Pressure Source Monitor Monitor Monitor Blood Pressure Position Semi-Fowlers Semi-Fowlers Semi-Fowlers Blood Pressure Location Left Arm Left Arm Left Arm Pulse Ox 96 97 97 Oxygen Delivery Method Nasal Cannula Nasal Cannula Nasal Cannula Oxygen Flow Rate (L/min) 2 2 2 10/07/24 05:55 10/07/24 06:00 10/07/24 07:12 Temperature 97.4 F L 97.4 F L Temperature Source Temporal Pulse Rate 147 H 132 H 132 H Pulse Strength Respiratory Rate 14 14 Respiratory Effort Respiratory Depth Respiratory Pattern Blood Pressure 107/71 107/71 107/71 Blood Pressure Mean 83 Blood Pressure Source Monitor Blood Pressure Position Semi-Fowlers Blood Pressure Location Left Arm Pulse Ox 96 96 Oxygen Delivery Method Nasal Cannula Oxygen Flow Rate (L/min) 2 2 Weight Weight: 133 lb 8 oz Body Mass Index (BMI) 23.6 Physical Exam Narrative Extremities: LEFT: No crepitus or signs of surrounding infection or ascending infection. No signs of fluid collection in the wounds at this time. No palpable pedal pulses. Ischemic disease consistent with arterial insufficiency with ischemic toes. Motor exam is limited secondary to the wounds. Able to bend and extend foot, however. Compartments are soft in the legs bilaterally. Sensory exam: Reports normal sensation to light touch in the left lower extremity/foot. RIGHT: Small wound on dorsum, partial thickness, and small wound over lateral ankle that has small eschar. Const alert and oriented x3 Eyes EOMs intact bilaterally Lymph Lymphatic: no lymphadenopathy noted Resp normal respiratory effort Cardio Rate: tachycardic Rhythm: abnormal rhythm Results Medical Records Data Medical Nutrition Assessment Dietitian: Malnutrition Criteria Met Start: 10/04/24 16:30 Freq: Status: Active Protocol: Document 10/04/24 16:31 RMA (Rec: 10/04/24 16:31 RMA [id number]) Nutrition Malnutrition Evidence of Malnutrition Exists Yes Malnutrition (severe): Chronic Evidenced By Suboptimal Energy Intake ( Severe),Weight Loss (Severe), Physical Changes (Moderate) Clinical Problem Chronic Disease or Condition Related Malnutrition Etiology severe protein-calorie malnutrition in the context of chronic disease related to inadequate energy/oral intake Signs/Symptoms as evidenced by ~20% unintentional weight loss x less than 6 months, BMI 18.6 and PO meeting less than 50% estimated nutrition needs x 3- 4 months Status Active Problem Recommendation Dietitian Recommendations/Changes Liberalize diet to Regular and encourage improved PO as tolerated. Will d/c ensure compact 4 times per day w/ medpass. Will add Navjot BID with medpass to support wound healing. Will add 240mL Ensure plus high protein w/ Breakfast and Dinner meals. Adjust ONS as needed to support weight gain. Lab / Micro Data 10/07/24 03:24 10/07/24 03:24 Labs: Laboratory Results - last 24 hr 10/06/24 05:05: Immature Gran % (Auto) 1.100 H, Neut % (Auto) 86.3 H, Lymph % (Auto) 3.8 L, [place] % (Auto) 8.4, Eos % (Auto) 0.2, Baso % (Auto) 0.2, Absolute Neuts (auto) 16.3 H, Absolute Lymphs (auto) 0.72 L, Diff Path Review March10/06/24 13:50: APTT 56.8 H 10/06/24 20:11: APTT 51.5 H 10/07/24 03:24: WBC 18.9 H, RBC 3.42 L, Hgb 10.9 L, Hct 31.4 L, MCV 91.8, MCH 31.9, MCHC 34.7, RDW Std Deviation 54.4 H, RDW Coeff of Lisbeth 16.3 H, Plt Count 253, MPV 10.1, Immature Gran % (Auto) 1.400 H, Neut % (Auto) 84.6 H, Lymph % (Auto) 4.8 L, [place] % (Auto) 8.7, Eos % (Auto) 0.3, Baso % (Auto) 0.2, Absolute Neuts (auto) 16.0 H, Absolute Lymphs (auto) 0.91, Nucleated RBC % 0, Differential Comment SCANNED, Diff Path Review March, Platelet Estimate ADEQUATE, Polychromasia RARE, Anisocytosis 1+, Tear Drop Cells RARE, Ovalocytes 1+, Bite Cells RARE, PT 16.4 H, INR 1.3, APTT > 200.0 H*, Sodium 131 L, Potassium 3.9, Chloride 103, Carbon Dioxide 21.0, Anion Gap 7, BUN 24 H, Creatinine 0.56, Estim Creat Clear Calc 63.54, Est GFR (MDRD) Af Amer 138, Est GFR (MDRD) Non-Af 114, BUN/Creatinine Ratio 42.9 H, Glucose 108 H, Calcium 8.0 L , Total Bilirubin 0.40, Direct Bilirubin 0.23, AST 57 H, ALT 27, Alkaline Phosphatase 197 H, Total Protein 4.3 L, Albumin 1.4 L, Globulin 2.9 10/07/24 05:30: APTT 33.6 Micro: Microbiology 10/03/24 16:37 Blood Culture (Wb) - Left Forearm Blood Culture - Preliminary No growth in 48 hours. 10/03/24 15:57 Blood Culture (Wb) - Right Forearm Blood Culture - Preliminary No growth in 48 hours. 10/03/24 16:37 Urine, Catheterized Urine Culture - Preliminary ESBL Escherichia coli Mixed Gram Positive Organisms 10/03/24 19:45 Wound - Left Foot Gram Stain - Final 10/03/24 19:45 Wound - Left Foot Wound Culture - Preliminary ESBL Escherichia coli Providencia rettgeri Pseudomonas spp Rhythm Strip Rhythm Strip: A-fib Rate: 165 Ectopy: None Assessment & Plan Assessment/Plan (1) Peripheral vascular disease of lower extremity with ulceration: (2) Pressure ulcer of left leg, unstageable: PLAN: Plan I talked the patient extensively about the risks of surgery, including bleeding, infection, damage to surrounding structures (nerves, tendons, arteries), need for wound care, need for repeat operations, failure to obtain the desired result (ultimate need for amputation), DVT/PE, and the risks of anesthesia including (especially from heart failure or respiratory failure). The benefits, risks, and alternatives of this surgery were overall discussed. All of their questions were answered, and they agreed to proceed with surgery. The patient and family understand that this is an essential procedure (wounds may be causing her sepsis and are full thickness and severe). INTERVAL H&P PLAN, DATE OF SURGERY: We will proceed with surgery today. I discussed with the family and her expectations regarding the wounds and the debridement today. We will talk after the debridement about the next possible steps for limb salvage.
--- NOTE | 2024-10-07 07:30 | LES_PTH ---
PATIENT: MICHELINE CLEMONS LOC: [facility] U#:[id number] AGE/SX: 69/F ROOM: [facility] RE10/03/[address]: Dr. Yuval Calzada DO : 1955 BED: 1 DIS: 10/09/2024 SPEC #: [id number] RECD: 10/07/24 12:08 STATUS: DANIELLE CRUZ #: [id number] SWATHI: 10/07/24 07:[address]: Jonatan Velazquez DEPT: SURGICAL PATHOLOGY RECD BY: Oc Santos ENTERED: 10/07/24 12:08 SP TYPE: Lesion OTHR DR: DO Dr. Yuval Campos MD Dr. Kathryn Lee, DO Dr. Michael Marshall, VASILIYM MD Dr. Jonatan Styles MD Dr. Steven Murray, MD Tissues: Skin of leg, NOS Procedures: Special Stain Group I Surgery Specimen Level IV AFB Stain (control) GMS Stain (control) Comments: @ Ordering doctor for SUIV edited from to @ by DEION at 10/10/24 1206 @ Submitting doctor edited from to @ geneva ALBARRAN at 10/10/24 1206 HEADER OPERATION: Lower extremity wound PRE-OP DIAGNOSIS: Peripheral vascular disease of lower extremity with ulceration, wound infection, sepsis TISSUE SUBMITTED: Left lower leg wound biopsy MICROSCOPIC DIAGNOSIS Left lower leg wound, biopsy: Gangrenous necrosis. Degenerating cellular debris. Acute inflammation. Negative for acid fast bacilli and fungal organisms. See comment. 10/10/2024 COMMENT Immunohistochemistry ([id number]) supports the above diagnosis. AFB and GMS stains with matched controls were used in the evaluation of this case. Clinical correlation is necessary. MICROSCOPIC DESCRIPTION Slides are reviewed. GROSS DESCRIPTION Received in fixative is one container labeled with the patient's name and designated Left lower leg wound biopsy. The specimen consists of a piece of sanchez-pink soft tissue measuring 0.7 x 0.3 x 0.1cm. The entire specimen is submitted in one cassette. SJ 10/07/2024 TC:2 CPT:95903,55552l1
--- NOTE | 2024-10-07 07:30 | LES_PTH ---
PATIENT: MICHELINE CLEMONS LOC: [facility] U#:[id number] AGE/SX: 69/F ROOM: [facility] RE10/03/[address]: Dr. Yuval Calzada DO : 1955 BED: 1 DIS: 10/09/2024 SPEC #: [id number] RECD: 10/07/24 12:08 STATUS: DANIELLE CRUZ #: [id number] SWATHI: 10/07/24 07:[address]: Jonatan Velazquez DEPT: SURGICAL PATHOLOGY RECD BY: Oc Santos ENTERED: 10/07/24 12:08 SP TYPE: Lesion OTHR DR: DO Dr. Yuval Campos MD Dr. Kathryn Lee, DO Dr. Michael Marshall, VASILIYM MD Dr. Jonatan Styles MD Dr. Steven Murray, MD Tissues: Skin of leg, NOS Procedures: Special Stain Group I Surgery Specimen Level IV AFB Stain (control) GMS Stain (control) Comments: @ Ordering doctor for SUIV edited from to @ by DEION at 10/10/24 1206 @ Submitting doctor edited from to @ geneva ALBARRAN at 10/10/24 1206 HEADER OPERATION: Lower extremity wound PRE-OP DIAGNOSIS: Peripheral vascular disease of lower extremity with ulceration, wound infection, sepsis TISSUE SUBMITTED: Left lower leg wound biopsy MICROSCOPIC DIAGNOSIS Left lower leg wound, biopsy: Gangrenous necrosis. Degenerating cellular debris. Acute inflammation. See comment. 10/10/2024 COMMENT Immunohistochemistry ([id number]) supports the above diagnosis. AFB and GMS stains with matched controls were used in the evaluation of this case. Clinical correlation is necessary. MICROSCOPIC DESCRIPTION Slides are reviewed. GROSS DESCRIPTION Received in fixative is one container labeled with the patient's name and designated Left lower leg wound biopsy. The specimen consists of a piece of sanchez-pink soft tissue measuring 0.7 x 0.3 x 0.1cm. The entire specimen is submitted in one cassette. SJUlisesmr 10/07/2024 TC:2 CPT:87333,01776q3
[2024-10-07 08:40] LABS: Pathologist Review Reviewed
--- NOTE | 2024-10-07 08:54 | PCM.PN.HOSP ---
Reason for Visit Reason for Visit: Diagnoses Sepsis, unspecified organism (10/03/24) Elevated white blood cell count, unspecified (10/03/24) Dehydration (10/03/24) Hypo-osmolality and hyponatremia (10/03/24) Acidosis, unspecified (10/03/24) Hyperkalemia (10/03/24) Unspecified atrial fibrillation (10/03/24) Atherosclerosis of [place] arteries of extremities with rest pain, left leg (10/03/24) Atherosclerosis of [place] arteries of left leg with ulceration of other part of foot (10/03/24) Peripheral vascular disease, unspecified (10/03/24) Local infection of the skin and subcutaneous tissue, unspecified (10/03/24) Pressure ulcer of other site, unstageable (10/03/24) Non-pressure chronic ulcer of right calf with fat layer exposed (10/03/24) Non-pressure chronic ulcer of other part of left foot with unspecified severity (10/03/24) Non-pressure chronic ulcer of unspecified part of unspecified lower leg with unspecified severity (10/03/24) Other specified abnormal findings of blood chemistry (10/03/24) Other injury of unspecified body region, initial encounter (10/03/24) Tobacco use (10/03/24) Subjective Subjective having pain post operatively. anxious. Objective Data Objective Data Vital Signs: Vital Signs Temp Pulse Resp BP Pulse Ox O2 Del Method O2 Flow Rate 36.3 C L 118 H 16 119/73 96 Nasal Cannula 2 10/07/24 07:12 10/07/24 07:15 10/07/24 07:15 10/07/24 07:15 10/07/24 07:12 10/07/24 06:00 10/07/24 07:12 Oxygen Flow Rate (L/min) 2 Oxygen Delivery Method Nasal Cannula Weight: 60.555 kg Body Mass Index (BMI) 23.6 Intake & Output: Intake and Output for Last 24 Hours 10/05/24 10/06/24 10/07/24 23:59 23:59 23:59 Intake Total 790.00 / 1010.00 2002.84 / 2052.84 241.88 / 241.88 Output Total 400 / 500 700 / 800 200 / 200 Balance 390.00 / 510.00 1303.84 / 1253.84 41.88 / 41.88 Medical Nutrition Assessment Dietitian: Malnutrition Criteria Met Start: 10/04/24 16:30 Freq: Status: Active Protocol: Document 10/04/24 16:31 RMA (Rec: 10/04/24 16:31 RMA [id number]) Nutrition Malnutrition Evidence of Malnutrition Exists Yes Malnutrition (severe): Chronic Evidenced By Suboptimal Energy Intake ( Severe),Weight Loss (Severe), Physical Changes (Moderate) Clinical Problem Chronic Disease or Condition Related Malnutrition Etiology severe protein-calorie malnutrition in the context of chronic disease related to inadequate energy/oral intake Signs/Symptoms as evidenced by ~20% unintentional weight loss x less than 6 months, BMI 18.6 and PO meeting less than 50% estimated nutrition needs x 3- 4 months Status Active Problem Recommendation Dietitian Recommendations/Changes Liberalize diet to Regular and encourage improved PO as tolerated. Will d/c ensure compact 4 times per day w/ medpass. Will add Navjot BID with medpass to support wound healing. Will add 240mL Ensure plus high protein w/ Breakfast and Dinner meals. Adjust ONS as needed to support weight gain. Lab / Micro Data 10/07/24 03:24 10/07/24 03:24 Labs: Laboratory Results - last 24 hr 10/03/24 16:37: Urine Color Brown, Urine Clarity Cloudy, Urine pH 5.0, Ur Specific Baker 1.020, Urine Protein 15 H, Urine Glucose (UA) 50 H, Urine Ketones 5 H, Urine Occult Blood 10 H, Urine Nitrite Negative, Urine Bilirubin 1 H, Urine Urobilinogen 1 H, Ur Leukocyte Esterase 25 H, Urine RBC 0-5 SEEN, Urine WBC 0-5 SEEN, Ur Squamous Epith Cells 0-5 SEEN, Urine Bacteria RARE, Urine Mucus 0 SEEN 10/06/24 05:05: Diff Path Review Reviewed 10/06/24 13:50: APTT 56.8 H 10/06/24 20:11: APTT 51.5 H 10/07/24 03:24: WBC 18.9 H, RBC 3.42 L, Hgb 10.9 L, Hct 31.4 L, MCV 91.8, MCH 31.9, MCHC 34.7, RDW Std Deviation 54.4 H, RDW Coeff of Lisbeth 16.3 H, Plt Count 253, MPV 10.1, Immature Gran % (Auto) 1.400 H, Neut % (Auto) 84.6 H, Lymph % (Auto) 4.8 L, [place] % (Auto) 8.7, Eos % (Auto) 0.3, Baso % (Auto) 0.2, Absolute Neuts (auto) 16.0 H, Absolute Lymphs (auto) 0.91, Nucleated RBC % 0, Differential Comment SCANNED, Diff Path Review May foll, Platelet Estimate ADEQUATE, Polychromasia RARE, Anisocytosis 1+, Tear Drop Cells RARE, Ovalocytes 1+, Bite Cells RARE, PT 16.4 H, INR 1.3, APTT > 200.0 H*, Sodium 131 L, Potassium 3.9, Chloride 103, Carbon Dioxide 21.0, Anion Gap 7, BUN 24 H, Creatinine 0.56, Estim Creat Clear Calc 63.54, Est GFR (MDRD) Af Amer 138, Est GFR (MDRD) Non-Af 114, BUN/Creatinine Ratio 42.9 H, Glucose 108 H, Calcium 8.0 L, Total Bilirubin 0.40, Direct Bilirubin 0.23, AST 57 H, ALT 27, Alkaline Phosphatase 197 H, Total Protein 4.3 L, Albumin 1.4 L, Globulin 2.9 10/07/24 05:30: APTT 33.6 Micro: Microbiology 10/03/24 19:45 Wound - Left Foot Gram Stain - Final 10/03/24 19:45 Wound - Left Foot Wound Culture - Preliminary ESBL Escherichia coli Providencia rettgeri Pseudomonas spp 10/03/24 16:37 Urine, Catheterized Urine Culture - Final ESBL Escherichia coli Corynebacterium amycolatum Lactobacillus casei 10/03/24 16:37 Blood Culture (Wb) - Left Forearm Blood Culture - Preliminary No growth in 48 hours. 10/03/24 15:57 Blood Culture (Wb) - Right Forearm Blood Culture - Preliminary No growth in 48 hours. 10/03/24 19:45 Wound - Left Foot Skin and Soft Tissue MRSA/MSSA (PCR - Final Rhythm Strip Rhythm Strip: A-fib Rate: 165 Ectopy: None Physical Exam Const alert Constitutional Narrative: anxious HEENT head/scalp atraumatic Resp normal respiratory effort, no retractions, no use of accessory muscles and clear to auscultation bilaterally Cardio regular rate, regular rhythm, S1 normal heart sound and S2 normal heart sound Cardio Narrative: irregularly irregular. GI normal to inspection, nondistended, normoactive bowel sounds, soft to palpation, non-tender and non-distended Extremity normal to inspection and full ROM Extremity Narrative: wound wrap and vac on LLE. Rubor of RLE. Neuro Sensorium / Orientation: awake and alert Assessment & Plan Assessment/Plan (1) Peripheral vascular disease of lower extremity with ulceration: (2) Wound infection: (3) Sepsis: (4) Atrial fibrillation with RVR: (5) Hyponatremia: PLAN: Plan Sepsis POA secondary to bilateral lower extremity wound infection from vascular disease Meet sepsis criteria with tachycardia, suspected JOHNATHON, lactic acidosis and source Broad-spectrum antibiotics with vancomycin and cefepime to cover MRSA and Pseudomonas Wound and blood cultrues negative. MRSA PCR wound negative Patient received 30 cc/kg body weight podiatry consult. Wound care. LLE ulcerations extensive distally and posteriorly likely a combination of vascular and pressure-related. pt underwent debridement of wounds on 10/07. DW Dr. Velazquez, pt had an abscess that was below the fascia that he was able to clean up. He plan to take patient back to surgery on 10/10 Wound cultures growing out ESBL E. coli, Providencia rettgeri, Pseudomonas current abx with meropenem and vancomycin A-fib with RVR echo shows an EF 62%. No regional wall motion abnormalities. PO metoprolol YVROSE Velazquez who advises holding on anticoagulation until 10/08 to minimize bleeding risk. Hyponatremia suspect hypovolemic hyponatremia improved with IVF. Monitor Hyperkalemia resolved with IVF. Cardiac vegetation 2d Echo showed a ventricular septum mobile material 0.5 x 0.4 cm. cannot rule out endocarditis BCx pending ID consult. Elevated troponin Mild at 55. Resolved. Peripheral vascular disease Patient was placed on Plavix, aspirin, Pletal, and rosuvastatin. Does not appear to be taking any of these. Start aspirin 81 mg daily and will hold off her Plavix for now. Seen by vascular surgery. Plan for angiogram to LLE, but high concern pt will require amputation. Plan for angiography in the future. Generalized weakness/debility PT/OT consultation Social work/case management consultation as I do highly anticipate patient will likely need placed at discharge Alcohol use CIWA protocol. DVT prophylaxis: no anticoagulation at this time post op. Also would hold off on mechanical prophylaxis given PAD and LLE wounds. CODE STATUS: full code. Charges/Coding Visit Charges Inpatient E&M: 54117 Subs Hosp L2
[2024-10-07] MEDS: Sodium Hypochlorite (Dakin's) 0.125% Wound Irrigation IRRIGATION (09:21)
[2024-10-07] MEDS: Epinephrine (1 mg/ml) 1 MG/ML VIAL (09:22)
[2024-10-07] MEDS: Bupiv/Epi 0.25% 30 ML Vial (09:42)
--- NOTE | 2024-10-07 10:15 | PCM.POST.ANE ---
Anesthesia: Postop Eval I Current Vital Signs Temperature: 98.6 F Pulse Rate: 124 Blood Pressure: 82/58 Respiratory Rate: 16 Pulse Ox: 92 Oxygen Delivery Method: Nasal Cannula Oxygen Flow Rate (L/min): 3 Assessment Airway patent: Yes Spontaneous unlabored respirations: Yes Mental status: Asleep (arousable) nausea: No Vomiting: No Anesthesia Complication: Yes Anesthesia Complication Comment:: Patient is a significant vasculopath. She is also in atrial fibrillation. Pulse oximeter was extremely sporadic. Fluid Hydration Crystalloid volume administer (ml): 800 Total IV fluid infused: 800 Progress Note Anesthesia document: Postop Eval 1 completed: Yes
[2024-10-07] MEDS: 0.9% Normal Saline (1000mL) 1,000 ML 500 ML IV (10:30)
--- NOTE | 2024-10-07 10:34 | PCM.POSTANE2 ---
Anesthesia Postop Eval I Sum Postop Eval Completion status Anesthesia document: Postop Eval 1 completed: Yes Anesthesia Postop Eval I Summary Anesthesia Postop Eval I Summary: Anesthesia Postop Eval I: Assessment Summary Airway patent Yes 10/07/24 10:31 Spontaneous unlabored Yes 10/07/24 10:31 respirations Mental status Asleep - arousable 10/07/24 10:31 nausea No 10/07/24 10:31 Vomiting No 10/07/24 10:31 Anesthesia Postop Eval I: Fluid Summary Crystalloid volume administer 800 10/07/24 10:33 (ml) Colloids volume administered ( ml) Blood Product volume administered (ml) Total IV fluid infused 800 10/07/24 10:33 Anesthesia Postop Eval I: Summary Notes Anesthesia Complication Yes 10/07/24 10:31 Anesthesia Complication Patient is a 10/07/24 10:33 Comment: significant vasculopath. She is also in atrial fibrillation. Pulse oximeter was extremely sporadic. Post-operative progress note Anesthesia: Postop Eval II Evaluation Mental status: Awake (Arousable) Pain Level: 0 nausea: No Vomiting: No Complications Anesthesia Complication: No
[2024-10-07 13:18] LABS: Pathologist Review Reviewed
[2024-10-07] MEDS: 0.9% Saline Lock 10 ML Syringe IV ×2 (13:34→17:09)
[2024-10-07] MEDS: Metoprolol Tartrate 50 MG Tablet PO ×2 (13:35→20:19)
[2024-10-07] MEDS: NYSTATIN 500,000 UNIT/5 ML UDC 500000 UNIT PO ×3 (13:36→20:17)
[2024-10-07] MEDS: Acetaminophen 500 MG Tablet 1000 MG PO ×2 (13:36→20:19)
[2024-10-07] MEDS: oxyCODONE 5 MG Tablet PO (14:50)
--- NOTE | 2024-10-07 15:51 | PCM.PN.SRG ---
Subjective Subjective Patient seen today resting in bed. She had surgical debridement with Dr. Velazquez today, irrigating wound vac in place. She is endorsing a lot of postoperative pain, difficulty managing due to her also having low BPs. She is much more alert and conversive today compared to the last few days I have seen her. Objective Data Objective Data Vital Signs: Vital Signs Temp Pulse Resp BP Pulse Ox O2 Del Method O2 Flow Rate 98.1 F 125 H 16 133/92 H 95 Nasal Cannula 2 10/07/24 13:30 10/07/24 13:35 10/07/24 13:30 10/07/24 13:35 10/07/24 13:30 10/07/24 13:30 10/07/24 13:30 Oxygen Flow Rate (L/min) 2 Oxygen Delivery Method Nasal Cannula Weight: 133 lb 8 oz Body Mass Index (BMI) 23.6 Intake & Output: Intake and Output for Last 24 Hours 10/05/24 10/06/24 10/07/24 23:59 23:59 23:59 Intake Total 790.00 / 1010.00 2002.84 / 2053.84 3361.88 / 3361.88 Output Total 400 / 500 700 / 800 375 / 375 Balance 390.00 / 510.00 1303.84 / 1253.84 2986.88 / 2986.88 Medical Nutrition Assessment Dietitian: Malnutrition Criteria Met Start: 10/04/24 16:30 Freq: Status: Active Protocol: Document 10/07/24 15:35 SB (Rec: 10/07/24 15:35 SB [id number]) Nutrition Malnutrition Evidence of Malnutrition Exists Yes Malnutrition (severe): Chronic Evidenced By Suboptimal Energy Intake ( Severe),Weight Loss (Severe), Physical Changes (Moderate) Clinical Problem Chronic Disease or Condition Related Malnutrition Etiology severe protein-calorie malnutrition in the context of chronic disease related to inadequate energy/oral intake Signs/Symptoms as evidenced by ~20% unintentional weight loss x less than 6 months, BMI 18.6 and PO meeting less than 50% estimated nutrition needs x 3- 4 months Status Active Problem Recommendation Dietitian Recommendations/Changes Recommend advanced diet as tolerated to liberalized Regular diet. As diet is advanced, continue Navjot BID with medpass to support wound healing and 240mL Ensure plus high protein w/ Breakfast and Dinner meals . Adjust ONS as needed to support weight gain. Reviewed and approved by Sanket Miller, MS, RDN, LD. Lab / Micro Data 10/07/24 03:24 10/07/24 03:24 Labs: Laboratory Results - last 24 hr 10/03/24 16:37: Urine Color Brown, Urine Clarity Cloudy, Urine pH 5.0, Ur Specific [place] 1.020, Urine Protein 15 H, Urine Glucose (UA) 50 H, Urine Ketones 5 H, Urine Occult Blood 10 H, Urine Nitrite Negative, Urine Bilirubin 1 H, Urine Urobilinogen 1 H, Ur Leukocyte Esterase 25 H, Urine RBC 0-5 SEEN, Urine WBC 0-5 SEEN, Ur Squamous Epith Cells 0-5 SEEN, Urine Bacteria RARE, Urine Mucus 0 SEEN 10/06/24 05:05: Diff Path Review Reviewed 10/06/24 20:11: APTT 51.5 H 10/07/24 03:24: WBC 18.9 H, RBC 3.42 L, Hgb 10.9 L, Hct 31.4 L, MCV 91.8, MCH 31.9, MCHC 34.7, RDW Std Deviation 54.4 H, RDW Coeff of Lisbeth 16.3 H, Plt Count 253, MPV 10.1, Immature Gran % (Auto) 1.400 H, Neut % (Auto) 84.6 H, Lymph % (Auto) 4.8 L, [place] % (Auto) 8.7, Eos % (Auto) 0.3, Baso % (Auto) 0.2, Absolute Neuts (auto) 16.0 H, Absolute Lymphs (auto) 0.91, Nucleated RBC % 0, Differential Comment SCANNED, Diff Path Review Reviewed, Platelet Estimate ADEQUATE, Polychromasia RARE, Anisocytosis 1+, Tear Drop Cells RARE, Ovalocytes 1+, Bite Cells RARE, PT 16.4 H, INR 1.3, APTT > 200.0 H*, Sodium 131 L, Potassium 3.9, Chloride 103, Carbon Dioxide 21.0, Anion Gap 7, BUN 24 H, Creatinine 0.56, Estim Creat Clear Calc 63.54, Est GFR (MDRD) Af Amer 138, Est GFR (MDRD) Non-Af 114, BUN/Creatinine Ratio 42.9 H, Glucose 108 H, Calcium 8.0 L, Total Bilirubin 0.40, Direct Bilirubin 0.23, AST 57 H, ALT 27, Alkaline Phosphatase 197 H, Total Protein 4.3 L, Albumin 1.4 L, Globulin 2.9 10/07/24 05:30: APTT 33.6 Micro: Microbiology 10/07/24 09:27 Tissue - Leg, Left Gram Stain - Final 10/07/24 09:27 Wound Abcess - Aerobic & Anaerobic Swabs Gram Stain - Final 10/07/24 09:27 Wound - Left Foot Gram Stain - Final 10/03/24 19:45 Wound - Left Foot Gram Stain - Final 10/03/24 19:45 Wound - Left Foot Wound Culture - Final ESBL Escherichia coli Providencia rettgeri Pseudomonas spp 10/03/24 16:37 Urine, Catheterized Urine Culture - Final ESBL Escherichia coli Corynebacterium amycolatum Lactobacillus casei 10/03/24 16:37 Blood Culture (Wb) - Left Forearm Blood Culture - Preliminary No growth in 48 hours. 10/03/24 15:57 Blood Culture (Wb) - Right Forearm Blood Culture - Preliminary No growth in 48 hours. 10/03/24 19:45 Wound - Left Foot Skin and Soft Tissue MRSA/MSSA (PCR - Final Rhythm Strip Rhythm Strip: A-fib Rate: 165 Ectopy: None Physical Exam Const alert and oriented x3 General Appearance: anxious HEENT normocephalic, head/scalp atraumatic, hearing grossly normal bilaterally, external ears normal and external nose normal Eyes General Eye: normal appearance of both eyes Resp normal respiratory effort Effort and Inspection: able to speak in complete sentences Cardio Rate: tachycardic Extremity Extremity Narrative: LLE with irrigating wound vac in place Neuro oriented x3, CN's II-XII intact bilaterally, moves all extremities and no focal motor deficits Speech: speech normal Psych mental status grossly normal and activity/motor behavior normal Assessment & Plan Assessment/Plan (1) Peripheral vascular disease of lower extremity with ulceration: PLAN: Discussed with Dr. Velazquez. Debridement went well today, plans to return for another operative debridement next week. He is optimistic that may be able to salvage enough tissue for a BKA instead of AKA. Will continue to follow progress next week. If BKA can be performed, then would likely plan for angiogram to try to maximize inflow to increase healing potential. If ultimately not enough tissue remains salvageable and AKA is needed instead, then angiogram would not be necessary as expect there is already sufficient inflow to heal an AKA. Charges/Coding Visit Charges Inpatient E&M: 47772 Subs Hosp L1
[2024-10-07] MEDS: LORazepam 0.5 MG Tablet PO (16:06)
[2024-10-07 16:48] LABS: Vancomycin, Trough Level 14.6 ug/mL (5.0-15.0)
--- NOTE | 2024-10-07 16:55 | PCM.RX.CS ---
Consult Antibiotic Management Pharmacy has been consulted to manage selected antibiotic: Vancomycin Type of Intervention Type of Consult: Follow-up Suspected Infection Suspected Infection: Skin/Soft tissue Prior Doses of Antibiotics Prior Doses of Antibiotics Received/Current Regimen: Vancomycin 1000 mg IV given last 10/06/24 @ 1749 Labs Labs: Sodium 131 mmol/L (136-145) L 10/07/24 03:24 Potassium 3.9 mmol/L (3.5-5.1) 10/07/24 03:24 Chloride 103 mmol/L (98-107) 10/07/24 03:24 Carbon Dioxide 21.0 mmol/L (21.0-32.0) 10/07/24 03:24 Anion Gap 7 (5-15) 10/07/24 03:24 BUN 24 mg/dL (7-18) H 10/07/24 03:24 Creatinine 0.56 mg/dL (0.55-1.02) 10/07/24 03:24 Est GFR (MDRD) Af Amer 138 mL/min (>60) 10/07/24 03:24 Est GFR (MDRD) Non-Af 114 mL/min (>60) 10/07/24 03:24 BUN/Creatinine Ratio 42.9 RATIO (10-20) H 10/07/24 03:24 Glucose 108 mg/dL (74-106) H 10/07/24 03:24 Vancomycin Trough 14.6 ug/mL (5.0-15.0) 10/07/24 16:14 Microbiology Microbiology: Microbiology 10/07/24 09:27 Tissue - Leg, Left Gram Stain - Final 10/07/24 09:27 Wound Abcess - Aerobic & Anaerobic Swabs Gram Stain - Final 10/07/24 09:27 Wound - Left Foot Gram Stain - Final 10/03/24 19:45 Wound - Left Foot Gram Stain - Final 10/03/24 19:45 Wound - Left Foot Wound Culture - Final ESBL Escherichia coli Providencia rettgeri Pseudomonas spp 10/03/24 16:37 Urine, Catheterized Urine Culture - Final ESBL Escherichia coli Corynebacterium amycolatum Lactobacillus casei 10/03/24 16:37 Blood Culture (Wb) - Left Forearm Blood Culture - Preliminary No growth in 48 hours. 10/03/24 15:57 Blood Culture (Wb) - Right Forearm Blood Culture - Preliminary No growth in 48 hours. 10/03/24 19:45 Wound - Left Foot Skin and Soft Tissue MRSA/MSSA (PCR - Final Dosing Weight Weight used for dosin kg Estimated Creatinine Clearance Estimated Creatinine Clearance: ~ 64 Goal Trough Goal Trough: 15-20 mcg/mL Pharmacy Plan for Drug Dosing Pharmacy Plan for Drug Dosing: Vancomycin trough = 14.6, increase to 1250 mg Q24H Pharmacy Service will continue to monitor and adjust dosing as required. Follow-Up Labs Follow-Up Labs: Trough: Vancomycin Date/Time Labs Ordered Labs to be done on [date and time ordered]: 10/09/24 @ 1736
[2024-10-07] MEDS: Metoprolol Tartrate 5 MG/5 ML Vial IV (17:09)
[2024-10-07] MEDS: DiphenhydrAMINE 50 MG/ML Syringe 25 MG IV (17:10)
[2024-10-07] MEDS: Vancomycin HCl 1,250 MG in 0.9% Normal Saline (250mL Bag) 250 ML 167 MG IV (17:10)
[2024-10-07] MEDS: Gabapentin 100 MG Capsule PO (18:25)
[2024-10-07] MEDS: HYDROmorphone 0.5 MG/0.5 ML SYRINGE IV ×2 (20:18→23:50)
[2024-10-07] MEDS: Atorvastatin Calcium 80 MG Tablet PO (20:20)
[2024-10-07] MEDS: Menthol/Lanolin/Calamine/Znox 113 GM Tube 1 APPLIC TOPICAL (20:21)
[2024-10-08] VITALS (41 sets, daily range): BP systolic 85–141; BP diastolic 57–115; PULSE 80–151; RESP 13–26; TEMP 36.2–36.7; O2SAT 92–98; BMI 25.4
--- NOTE | 2024-10-08 02:10 | NURSING ---
NOTIFIED BANG OF PT HR AND BP. HR REMAINING IN 120-140S AND GOING INTO 150S. HE SAID TO GIVE EXTRA DOSE OF METOPROLOL BUT THE HR WAS LARGELY DUE TO THE FREQUENCY OF THE ALBUTEROL TREATMENTS.
[2024-10-08] MEDS: 0.9% Saline Lock 10 ML Syringe IV ×8 (03:27→22:30)
[2024-10-08] MEDS: HYDROmorphone 0.5 MG/0.5 ML SYRINGE IV ×4 (03:28→22:28)
[2024-10-08] MEDS: Metoprolol Tartrate 5 MG/5 ML Vial IV (03:28)
[2024-10-08] MEDS: Acetaminophen 500 MG Tablet 1000 MG PO ×2 (04:21→22:11)
[2024-10-08] MEDS: Meropenem 1 GM in 0.9% Normal Saline (100mL MB+) 100 ML IV ×3 (04:21→22:11)
[2024-10-08] MEDS: 0.9% Normal Saline (500mL Bag) 500 ML 15 ML IV (04:22)
--- NOTE | 2024-10-08 05:37 | NURSING ---
JOEL AT BEDSIDE TO ASSESS PT. STATES THAT HE IS CONTENT WITH PT COMFORT LEVEL AND HOW THE DRESSING LOOKS AT THIS TIME. STATES THAT THE PLAN IS TO CHANGE DRESSING AND DO ANOTHER IND OF LLE ON THURSDAY.
--- NOTE | 2024-10-08 05:38 | PCM.PN.SRG ---
Subjective Subjective Post op day 1 from left lower extremity debridement. Patient reports persistent LLE pain, but no N/V. Objective Data Objective Data Vital Signs: Vital Signs Temp Pulse Resp BP Pulse Ox O2 Del Method O2 Flow Rate 97.4 F L 151 H 16 118/87 H 92 Nasal Cannula 3 10/08/24 01:00 10/08/24 03:28 10/08/24 01:00 10/08/24 01:00 10/08/24 01:00 10/08/24 01:00 10/08/24 01:00 Oxygen Flow Rate (L/min) 3 Oxygen Delivery Method Nasal Cannula Weight: 133 lb 8 oz Body Mass Index (BMI) 23.6 Intake & Output: Intake and Output for Last 24 Hours 10/06/24 10/07/24 10/08/24 23:59 23:59 23:59 Intake Total 2002.84 / 2052.84 3876.88 / 3876.88 120 / 120 Output Total 700 / 800 750 / 850 100 / 100 Balance 1303.84 / 1253.84 3126.88 / 3026.88 Medical Nutrition Assessment Dietitian: Malnutrition Criteria Met Start: 10/04/24 16:30 Freq: Status: Active Protocol: Document 10/07/24 15:35 SB (Rec: 10/07/24 15:35 SB [id number]) Nutrition Malnutrition Evidence of Malnutrition Exists Yes Malnutrition (severe): Chronic Evidenced By Suboptimal Energy Intake ( Severe),Weight Loss (Severe), Physical Changes (Moderate) Clinical Problem Chronic Disease or Condition Related Malnutrition Etiology severe protein-calorie malnutrition in the context of chronic disease related to inadequate energy/oral intake Signs/Symptoms as evidenced by ~20% unintentional weight loss x less than 6 months, BMI 18.6 and PO meeting less than 50% estimated nutrition needs x 3- 4 months Status Active Problem Recommendation Dietitian Recommendations/Changes Recommend advanced diet as tolerated to liberalized Regular diet. As diet is advanced, continue Navjot BID with medpass to support wound healing and 240mL Ensure plus high protein w/ Breakfast and Dinner meals . Adjust ONS as needed to support weight gain. Reviewed and approved by Sanket Miller, MS, RDN, LD. Lab / Micro Data 10/07/24 03:24 10/07/24 03:24 Labs: Laboratory Results - last 24 hr 10/03/24 16:37: Urine Color Brown, Urine Clarity Cloudy, Urine pH 5.0, Ur Specific [place] 1.020, Urine Protein 15 H, Urine Glucose (UA) 50 H, Urine Ketones 5 H, Urine Occult Blood 10 H, Urine Nitrite Negative, Urine Bilirubin 1 H, Urine Urobilinogen 1 H, Ur Leukocyte Esterase 25 H, Urine RBC 0-5 SEEN, Urine WBC 0-5 SEEN, Ur Squamous Epith Cells 0-5 SEEN, Urine Bacteria RARE, Urine Mucus 0 SEEN 10/06/24 05:05: Diff Path Review Reviewed 10/07/24 03:24: Differential Comment SCANNED, Diff Path Review Reviewed, Platelet Estimate ADEQUATE, Polychromasia RARE, Anisocytosis 1+, Tear Drop Cells RARE, Ovalocytes 1+, Bite Cells RARE 10/07/24 05:30: APTT 33.6 10/07/24 16:14: Vancomycin Trough 14.6 Micro: Microbiology 10/07/24 09:27 Tissue - Leg, Left Gram Stain - Final 10/07/24 09:27 Wound Abcess - Aerobic & Anaerobic Swabs Gram Stain - Final 10/07/24 09:27 Wound - Left Foot Gram Stain - Final 10/03/24 19:45 Wound - Left Foot Gram Stain - Final 10/03/24 19:45 Wound - Left Foot Wound Culture - Final ESBL Escherichia coli Providencia rettgeri Pseudomonas spp 10/03/24 16:37 Urine, Catheterized Urine Culture - Final ESBL Escherichia coli Corynebacterium amycolatum Lactobacillus casei 10/03/24 16:37 Blood Culture (Wb) - Left Forearm Blood Culture - Preliminary No growth in 48 hours. 10/03/24 15:57 Blood Culture (Wb) - Right Forearm Blood Culture - Preliminary No growth in 48 hours. 10/03/24 19:45 Wound - Left Foot Skin and Soft Tissue MRSA/MSSA (PCR - Final Rhythm Strip Rhythm Strip: A-fib Rate: 165 Ectopy: None Physical Exam Narrative Left Lower Extremity: VAC holding suction, no blood in the VAC. No signs of bleeding in the VAC. VeraFlow setting on with Dakins irrigation. Left distal toes with persistent ischemic disease, no change. Const alert and oriented x3 Constitutional Narrative: Able to answer my questions this morning. 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 Continue irrigating VAC until debridement on 10 Oct 2024. No signs of bleeding today. Discussed with vascular surgery (Dr. Mancilla). [facility] will continue to manage the wounds, he will scheduled for angiogram. We will attempt some form of limb salvage (attempt at saving length, potentially BKA). Today she is in rapid ventricular rhythm, but no henry in mental status and stable BP. I will discuss with primary team medical management for RVR and that no concern for blood loss anemia causing the tachycardia, but I'll also f/u CBC and cultures. Charges/Coding Procedures Integumentary [id number]: [id number] Global Visit
[2024-10-08 05:46] LABS: Absolute Lymphocyte Count 0.77 X10^3/uL (0.83-4.51); Absolute Neutrophil Count 17.3 X10^3/uL (2.0-7.7); Basophil# 0.04 X10^3/uL; Basophil% 0.2 % (0-1); Eosinophil# 0.02 X10^3/uL; Eosinophils% 0.1 % (0-5); Hematocrit 33.4 % (37-47); Hemoglobin 11.2 g/dL (12.0-15.0); Lymphocyte # 0.77 X10^3/ul (0.83-4.51); Lymphocyte % 3.9 % (19-41); Mean Corp Hgb Conc 33.5 g/dL (32-36); Mean Corpuscular Hgb 31.4 pg (27.0-32.0); Mean Corpuscular Volume 93.6 fL (81-99); Mean Platelet Vol. 10.3 fl (6.2-12.0); Monocyte# 1.21 X10^3/uL; Monocyte% 6.2 % (0-10); NRBC Flagged by Analyzer 0 % (0-5); Neutrophil # 17.28 X10^3/uL (2.7-7.7); Neutrophil % 88.2 % (47-70); Platelet Count 277 K/mm3 (150-450); RBC Distribution Width CV 16.5 % (11.6-14.6); RBC Distribution Width SD 56.5 fl (35.1-43.9); Red Blood Count 3.57 M/mm3 (4.2-5.4); White Blood Count 19.6 K/mm3 (4.4-11.0)
[2024-10-08 06:06] LABS: Anion Gap 7 (5-15); BUN 20 mg/dL (7-18); BUN/Creat Ratio 48.9 RATIO (10-20); Calcium,Total 8.3 mg/dL (8.5-10.1); Chloride 108 mmol/L (98-107); Creatinine, Serum 0.41 mg/dL (0.55-1.02); EST Glomerular Filtration Rate 164 mL/min (>60); Est Glom Filt Rate - Afr Amer 198 mL/min (>60); Glucose 94 mg/dL (74-106); Potassium 3.6 mmol/L (3.5-5.1); Sodium Level 135 mmol/L (136-145)
--- NOTE | 2024-10-08 06:47 | OP.PCM_ITS ---
Operative Report (Standard) Operative Information Surgery/Procedure Performed: 1) Excision of left lower extremity wound, 36 x 15 cm, necrotic skin, fascia, tendon, and muscle (CPT 03882, 64167 x 26) 2) Incision and drainage of deep space abscess, between deep posterior and superficial posterior compartment (CPT 35270) Surgeon: Jonatan Velazquez Date of Procedure: 10/07/24 Procedure Start Time: 09:03 Procedure Stop Time: 09:56 Pre-Operative Diagnosis: Left lower extremity wound Post-Operative Diagnosis: Same Select all DRAINS/GRAFTS/IMPLANTS that apply: None Type of Anesthesia: Epidural/Supplement (femoral block as well ) Estimated Blood Loss: 50 cc Fluids Replaced: 800cc NS Specimen collected: Yes Description of specimen(s) removed: biopsy of ulcer, cultures Description of surgery: Indications: Lizbeth Epperson is a 69-year-old female with complicated past medical history including development of an ischemic left lower extremity wound with questionable etiology of heel and leg wound (possible pressure related injury?). Presents today for excision of the wound. I talked to her and her about the risks, benefits, and alternatives to this today's procedure and they elected to proceed. Procedure details: Patient was correctly identified in preoperative holding and the left lower extremity was marked. She was taken back to the operating room where she was administered a spinal block. Once appropriate level of anesthesia was obtained she was prepped and draped in sterile fashion. A timeout was performed. No Esmarch was used , but a tourniquet was inflated to 250 mmHg on the left thigh. Necrotic skin, fat, fascia and muscle was then excised from the leg with a 10 blade scalpel for an excision of 36 x 15 cm from the leg ankle and foot. The tourniquet was let down and hemostasis was obtained with epinephrine soaked Telfa's and Bovie. A portion of the ulcer was sent for pathologic examination. Cultures were taken from fluid collections on the foot and the leg that were deep to the eschar. There was a division in the fascia between the superficial posterior compartment and the lateral compartment that was dissected bluntly into an abscess cavity between the deep and superficial posterior compartments and purulence was drained and the cavity was washed out and cultured. The entire wound bed was then irrigated with 3 L of normal saline and 450 cc of Irrisept. An irrigating wound VAC with Dakin's was then placed over the wound bed. She was transported the PACU in stable condition. Surgical Findings: Likely full-thickness injury over the calcaneus with exposed bone at the base (eschar left over the calcaneus) Exposed Achilles tendon completely with questionable viability of the Achilles Severe full-thickness injury around the foot and ankle with minimal bleeding following excision. 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
--- NOTE | 2024-10-08 08:22 | PN.HOSP_ITS ---
Reason for Visit Reason for Visit: Diagnoses Sepsis, unspecified organism (10/03/24) Elevated white blood cell count, unspecified (10/03/24) Dehydration (10/03/24) Hypo-osmolality and hyponatremia (10/03/24) Acidosis, unspecified (10/03/24) Hyperkalemia (10/03/24) Unspecified atrial fibrillation (10/03/24) Atherosclerosis of [place] arteries of extremities with rest pain, left leg (10/03/24) Atherosclerosis of [place] arteries of left leg with ulceration of other part of foot (10/03/24) Peripheral vascular disease, unspecified (10/03/24) Local infection of the skin and subcutaneous tissue, unspecified (10/03/24) Pressure ulcer of other site, unstageable (10/03/24) Non-pressure chronic ulcer of right calf with fat layer exposed (10/03/24) Non-pressure chronic ulcer of other part of left foot with unspecified severity (10/03/24) Non-pressure chronic ulcer of unspecified part of unspecified lower leg with unspecified severity (10/03/24) Other specified abnormal findings of blood chemistry (10/03/24) Other injury of unspecified body region, initial encounter (10/03/24) Tobacco use (10/03/24) Subjective Subjective pain better controlled today. Objective Data Objective Data Vital Signs: Vital Signs Temp Pulse Resp BP Pulse Ox O2 Del Method O2 Flow Rate 36.4 C L 141 H 16 120/77 94 Nasal Cannula 2 10/08/24 06:00 10/08/24 06:00 10/08/24 06:00 10/08/24 06:00 10/08/24 06:00 10/08/24 07:30 10/08/24 07:30 Oxygen Flow Rate (L/min) 2 Oxygen Delivery Method Nasal Cannula Weight: 65.1 kg Body Mass Index (BMI) 25.4 Intake & Output: Intake and Output for Last 24 Hours 10/06/24 10/07/24 10/08/24 23:59 23:59 23:59 Intake Total 2002. / 2052. 3876.88 / 3876.88 240 / 240 Output Total 700 / 800 750 / 850 150 / 150 Balance 1303.84 / 1253.84 3126.88 / 3026.88 90 / 90 Medical Nutrition Assessment Dietitian: Malnutrition Criteria Met Start: 10/04/24 16:30 Freq: Status: Active Protocol: Document 10/07/24 15:35 SB (Rec: 10/07/24 15:35 SB [id number]) Nutrition Malnutrition Evidence of Malnutrition Exists Yes Malnutrition (severe): Chronic Evidenced By Suboptimal Energy Intake ( Severe),Weight Loss (Severe), Physical Changes (Moderate) Clinical Problem Chronic Disease or Condition Related Malnutrition Etiology severe protein-calorie malnutrition in the context of chronic disease related to inadequate energy/oral intake Signs/Symptoms as evidenced by ~20% unintentional weight loss x less than 6 months, BMI 18.6 and PO meeting less than 50% estimated nutrition needs x 3- 4 months Status Active Problem Recommendation Dietitian Recommendations/Changes Recommend advanced diet as tolerated to liberalized Regular diet. As diet is advanced, continue Navjot BID with medpass to support wound healing and 240mL Ensure plus high protein w/ Breakfast and Dinner meals . Adjust ONS as needed to support weight gain. Reviewed and approved by Sanket Miller, MS, RDN, LD. Lab / Micro Data 10/08/24 04:25 10/08/24 04:25 Labs: Laboratory Results - last 24 hr 10/03/24 16:37: Urine Color Brown, Urine Clarity Cloudy, Urine pH 5.0, Ur Specific [place] 1.020, Urine Protein 15 H, Urine Glucose (UA) 50 H, Urine Ketones 5 H, Urine Occult Blood 10 H, Urine Nitrite Negative, Urine Bilirubin 1 H, Urine Urobilinogen 1 H, Ur Leukocyte Esterase 25 H, Urine RBC 0-5 SEEN, Urine WBC 0-5 SEEN, Ur Squamous Epith Cells 0-5 SEEN, Urine Bacteria RARE, Urine Mucus 0 SEEN 10/06/24 05:05: Diff Path Review Reviewed 10/07/24 03:24: Diff Path Review Reviewed 10/07/24 16:14: Vancomycin Trough 14.6 10/08/24 04:25: WBC 19.6 H, RBC 3.57 L, Hgb 11.2 L, Hct 33.4 L, MCV 93.6, MCH 31.4, MCHC 33.5, RDW Std Deviation 56.5 H, RDW Coeff of Lisbeth 16.5 H, Plt Count 277, MPV 10.3, Immature Gran % (Auto) 1.400 H, Neut % (Auto) 88.2 H, Lymph % (Auto) 3.9 L, [place] % (Auto) 6.2, Eos % (Auto) 0.1, Baso % (Auto) 0.2, Absolute Neuts (auto) 17.3 H, Absolute Lymphs (auto) 0.77 L, Nucleated RBC % 0, Sodium 135 L, Potassium 3.6, Chloride 108 H, Carbon Dioxide 20.0 L, Anion Gap 7, BUN 20 H, Creatinine 0.41 L, Estim Creat Clear Calc 54.90, Est GFR (MDRD) Af Amer 198, Est GFR (MDRD) Non-Af 164, BUN/Creatinine Ratio 48.9 H, Glucose 94, Calcium 8.3 L Micro: Microbiology 10/07/24 09:27 Tissue - Leg, Left Gram Stain - Final 10/07/24 09:27 Wound Abcess - Aerobic & Anaerobic Swabs Gram Stain - Final 10/07/24 09:27 Wound - Left Foot Gram Stain - Final 10/03/24 19:45 Wound - Left Foot Gram Stain - Final 10/03/24 19:45 Wound - Left Foot Wound Culture - Final ESBL Escherichia coli Providencia rettgeri Pseudomonas spp 10/03/24 16:37 Urine, Catheterized Urine Culture - Final ESBL Escherichia coli Corynebacterium amycolatum Lactobacillus casei 10/03/24 16:37 Blood Culture (Wb) - Left Forearm Blood Culture - Preliminary No growth in 48 hours. 10/03/24 15:57 Blood Culture (Wb) - Right Forearm Blood Culture - Preliminary No growth in 48 hours. 10/03/24 19:45 Wound - Left Foot Skin and Soft Tissue MRSA/MSSA (PCR - Final Rhythm Strip Rhythm Strip: A-fib Rate: 165 Ectopy: None Physical Exam Const alert Constitutional Narrative: more comfortable appearing today. HEENT head/scalp atraumatic and moist oral mucous membranes Eyes conjunctivae normal Eyes Narrative: no icterus Neck no lymphadenopathy Resp normal respiratory effort, no retractions, no use of accessory muscles and clear to auscultation bilaterally Cardio Cardio Narrative: irregularly irregular. GI normal to inspection, nondistended, normoactive bowel sounds and soft to palpation Extremity Extremity Narrative: left leg in semi-opaque wrap with wound vac. rubor in RLE. Neuro Sensorium / Orientation: awake and alert Psych affect normal Assessment & Plan Assessment/Plan (1) Peripheral vascular disease of lower extremity with ulceration: (2) Wound infection: (3) Sepsis: (4) Atrial fibrillation with RVR: PLAN: Plan Sepsis * POA * secondary to bilateral lower extremity wound infection from vascular disease * Meet sepsis criteria with tachycardia, suspected JOHNATHON, lactic acidosis and source * Broad-spectrum antibiotics with vancomycin and cefepime to cover MRSA and Pseudomonas * Wound and blood cultures negative. MRSA PCR wound negative * Patient received 30 cc/kg body weight * podiatry consult. Wound care. LLE ulcerations * extensive distally and posteriorly * likely a combination of vascular and pressure-related. * pt underwent debridement of wounds on 10/07. DW Dr. Velazquez, pt had an abscess that was below the fascia that he was able to clean up. He plan to take patient back to surgery on 10/10. Excisoin of LLE wound [id number]. I+D of deep space abscess * Wound cultures growing out ESBL E. coli, Providencia rettgeri, Pseudomonas * current abx with meropenem and vancomycin A-fib with RVR * echo shows an EF 62%. No regional wall motion abnormalities. * PO metoprolol. Started back on diltiazem gtt. * YVROSE Velazquez who advises holding on anticoagulation until 10/08 to minimize bleeding risk. Will restart heparin gtt today. * cardiology consultation. Hyponatremia * suspect hypovolemic hyponatremia improved with IVF. * Monitor Hyperkalemia * resolved with IVF. Cardiac vegetation * 2d Echo showed a ventricular septum mobile material 0.5 x 0.4 cm. * cannot rule out endocarditis * BCx pending * ID consult. Elevated troponin * Mild at 55. Resolved. Peripheral vascular disease * Patient was placed on Plavix, aspirin, Pletal, and rosuvastatin. Does not appear to be taking any of these. Start aspirin 81 mg daily and will hold off her Plavix for now. * Seen by vascular surgery. Plan for angiogram to LLE, but high concern pt will require amputation. * Plan for angiography in the future. Generalized weakness/debility * PT/OT consultation * Social work/case management consultation as I do highly anticipate patient will likely need placed at discharge Alcohol use * CIWA protocol. DVT prophylaxis: no anticoagulation at this time post op. Also would hold off on mechanical prophylaxis given PAD and LLE wounds. CODE STATUS: full code. Charges/Coding Visit Charges Inpatient E&M: 34369 Subs Hosp L3
[2024-10-08] MEDS: dilTIAZem 25 MG/5 ML Vial 10 MG IV BOLUS (09:06)
[2024-10-08] MEDS: Diltiazem 125 MG in Dextrose 5%-Water (100mL Bag) 100 ML IV (09:07)
[2024-10-08] MEDS: Collagenase 30gm Tube 1 APPLIC TOPICAL (09:13)
[2024-10-08] MEDS: Menthol/Lanolin/Calamine/Znox 113 GM Tube 1 APPLIC TOPICAL ×2 (09:18→22:12)
[2024-10-08] MEDS: Sodium Hypochlorite (Dakin's) 0.125% Wound Irrigation IRRIGATION (09:55)
--- NOTE | 2024-10-08 10:10 | NURSING ---
This RN called pt's , Bon back for update. No answer. This RN left voicemail and call back number.
[2024-10-08] MEDS: Ipratropium/Albuterol Sulfate 3 ML AMPUL.NEB INHALATION ×2 (13:52→21:19)
--- NOTE | 2024-10-08 14:42 | PCM.CONS.C ---
Assessment & Plan Assessment/Plan (1) Ischemic ulcer of left foot due to atherosclerosis: (2) Leukocytosis: (3) Dehydration: (4) Elevated troponin: (5) Peripheral vascular disease of lower extremity with ulceration: (6) Atrial fibrillation with RVR: (7) PAD (peripheral artery disease): PLAN: Cardiac care plan recommendations; 69-year-old patient with multiple medical comorbidities She has a severe peripheral vascular disease involving the left lower extremity Sepsis Dehydration Leukocytosis History of smoking History of alcohol use Evidently seen by the vascular surgery outpatient due to extremity with the abnormal arterial Dopplers ultrasound Cardiac consult requested for evaluation of A-fib/RVR As well she has abnormal echocardiogram with question of vegetation noted on the transthoracic echocardiogram Review all the current evaluation including the current medication patient currently on antibiotic as. Infectious disease including meropenem Vancomycin. From cardiac standpoint she is on rate control using calcium channel moises and beta-moises. Based on [id number] score she is a high risk for stroke Currently she is on heparin Once stable would recommend to use meterman anticoagulation with Eliquis based on her renal function. If she remained stable she may require further cardiac evaluation with a EWA to assess for valvular vegetation As there is suspicious echogenic mass in the transthoracic echocardiogram. From cardiac standpoint would recommend to continue to monitor and follow-up clinically. I discussed the cardiac medication and the cardiac care plan with the nursing staff in PCU HPI Consult Data Date of Consult: 10/08/24 HPI Narrative Reason for Consultation: severe peripheral vascular disease/left lower extremity/A-fib with RVR HPI Narrative: MICHELINE CLEMONS, is a 69 F who presents [facility] Medical History (Updated 10/07/24 @ 13:38 by Yamilka Lewis) History of ESBL E. coli infection Alcohol abuse Peripheral vascular disease Tobacco use Mitral valve prolapse Home Medications ?Medication ?Instructions ?Recorded ?Last Taken ?Type atenolol 50 mg tablet 50 mg PO QDAY 06/24/24 Unknown History cyclobenzaprine 10 mg tablet 10 mg PO TID PRN muscle spasm 06/24/24 Unknown History sulfamethoxazole 800 1 tab PO DAILY PRN prevent uti 06/24/24 Unknown History mg-trimethoprim 160 mg tablet aspirin 81 mg tablet,delayed 81 mg PO DAILY pvd 10/07/24 Unknown History release Allergy/AdvReac Type Severity Reaction Status Date / Time latex Allergy Intermediate Rash Verified 10/03/24 15:48 Penicillins Allergy Intermediate Rash Verified 10/03/24 15:48 Family History Other Hypertension Surgical History History of tonsillectomy H/O section Social History adopted: Yes Smoking Status: Current every day smoker tobacco type: cigarettes quit status: has quit before alcohol intake: current details: glass of wine with supper daily substance use type: does not use Physical Exam Cardio Cardio Narrative: Seen and evaluated and discussed with the nursing staff in the progressive care unit Patient was sleeping as she has been on medication with hydromorphone. Review of library monitor showed underlying A-fib with fast ventricular rate Cardiac exam S1-S2 is regular Chest exam clear auscultation Patient has severe peripheral vascular disease involving lower extremities with recent surgery for the left lower extremity wound. Risk Stratification Risk Stratification Applicable: No Objective Data Vital Signs: Vital Signs Temp Pulse Resp BP Pulse Ox O2 Del Method O2 Flow Rate 97.2 F L 123 H 18 114/70 94 Nasal Cannula 3 10/08/24 09:07 10/08/24 12:15 10/08/24 12:15 10/08/24 12:15 10/08/24 11:45 10/08/24 11:45 10/08/24 11:45 Oxygen Flow Rate (L/min) 3 Oxygen Delivery Method Nasal Cannula Weight: 143 lb 8.335 oz Body Mass Index (BMI) 25.4 Intake & Output: Intake and Output for Last 24 Hours 10/06/24 10/07/24 10/08/24 23:59 23:59 23:59 Intake Total 2002.84 / 2052.84 3876.88 / 3876.88 348.51 / 348.51 Output Total 700 / 800 750 / 850 450 / 450 Balance 1303.84 / 1253.84 3126.88 / 3026.88 -101.49 / -101.49 Lab / Micro Data 10/08/24 04:25 10/08/24 04:25 Labs: Laboratory Results - last 24 hr 10/07/24 16:14: Vancomycin Trough 14.6 10/08/24 04:25: WBC 19.6 H, RBC 3.57 L, Hgb 11.2 L, Hct 33.4 L, MCV 93.6, MCH 31.4, MCHC 33.5, RDW Std Deviation 56.5 H, RDW Coeff of Lisbeth 16.5 H, Plt Count 277, MPV 10.3, Immature Gran % (Auto) 1.400 H, Neut % (Auto) 88.2 H, Lymph % (Auto) 3.9 L, [place] % (Auto) 6.2, Eos % (Auto) 0.1, Baso % (Auto) 0.2, Absolute Neuts (auto) 17.3 H, Absolute Lymphs (auto) 0.77 L, Nucleated RBC % 0, Sodium 135 L, Potassium 3.6, Chloride 108 H, Carbon Dioxide 20.0 L, Anion Gap 7, BUN 20 H, Creatinine 0.41 L, Estim Creat Clear Calc 54.90, Est GFR (MDRD) Af Amer 198, Est GFR (MDRD) Non-Af 164, BUN/Creatinine Ratio 48.9 H, Glucose 94, Calcium 8.3 L Micro: Microbiology 10/07/24 09:27 Wound Abcess - Aerobic & Anaerobic Swabs Gram Stain - Final 10/07/24 09:27 Wound Abcess - Aerobic & Anaerobic Swabs Wound Culture - Preliminary Mixed Gram Pos & Gram Neg Org 10/07/24 09:27 Wound - Left Foot Gram Stain - Final 10/07/24 09:27 Wound - Left Foot Wound Culture - Preliminary Mixed Gram Pos & Gram Neg Org 10/07/24 09:27 Tissue - Leg, Left Gram Stain - Final 10/07/24 09:27 Tissue - Leg, Left Wound Culture - Preliminary Mixed Gram Pos & Gram Neg Org 10/03/24 19:45 Wound - Left Foot Gram Stain - Final 10/03/24 19:45 Wound - Left Foot Wound Culture - Final ESBL Escherichia coli Providencia rettgeri Pseudomonas spp Rhythm Strip Rhythm Strip: A-fib Rate: 165 Ectopy: None Cardiology Labs/Tests 10/08/24 04:25: WBC 19.6 H, RBC 3.57 L, Hgb 11.2 L, Hct 33.4 L, MCV 93.6, MCH 31.4, MCHC 33.5, Plt Count 277, MPV 10.3, Immature Gran % (Auto) 1.400 H, Neut % (Auto) 88.2 H, Lymph % (Auto) 3.9 L, [place] % (Auto) 6.2, Eos % (Auto) 0.1, Baso % (Auto) 0.2, Absolute Neuts (auto) 17.3 H, Nucleated RBC % 0, Sodium 135 L, Potassium 3.6, Chloride 108 H, Carbon Dioxide 20.0 L, Anion Gap 7, BUN 20 H, Creatinine 0.41 L, Est GFR (MDRD) Af Amer 198, Est GFR (MDRD) Non-Af 164, BUN/Creatinine Ratio 48.9 H, Glucose 94, Calcium 8.3 L Rhythm: EKG: ECHO: Stress Test: Cardiac Cath: PCI: CT Surgery: Holter monitor: EPS: PPM: CXR: Chest CT Scan:
[2024-10-08 16:31] LABS: International Normalized Ratio 1.2; Partial Thromboplast Time 34.8 Seconds (24.1-36.2)
[2024-10-08] MEDS: Heparin Injection (Vial) 5,000 UNIT/ML VIAL 4000 UNIT IV (16:53)
[2024-10-08] MEDS: HEPARIN/D5w 25,000 UNITS 25,000 UNITS/250 ML IV.SOLN. 8 UNITS CONT INF (16:56)
[2024-10-08] MEDS: Vancomycin HCl 1,250 MG in 0.9% Normal Saline (250mL Bag) 250 ML 167 MG IV (17:49)
[2024-10-08] MEDS: Diltiazem 125 MG in Dextrose 5%-Water (100mL Bag) 100 ML 15 MG IV (18:29)
[2024-10-08] MEDS: LORazepam 0.5 MG Tablet PO (20:03)
[2024-10-08] MEDS: oxyCODONE 5 MG Tablet PO (20:03)
[2024-10-08] MEDS: Atorvastatin Calcium 80 MG Tablet PO (22:11)
[2024-10-08] MEDS: NYSTATIN 500,000 UNIT/5 ML UDC 500000 UNIT PO (22:11)
[2024-10-08] MEDS: Metoprolol Tartrate 50 MG Tablet PO (22:25)
[2024-10-08 23:14] LABS: Partial Thromboplast Time > 200.0 Seconds (24.1-36.2)
[2024-10-09] VITALS (26 sets, daily range): BP systolic 74–110; BP diastolic 48–92; PULSE 81–107; RESP 15–35; TEMP 35.9–36.6; O2SAT 93–100; BMI 25.2
[2024-10-09] MEDS: 0.9% Saline Lock 10 ML Syringe IV ×2 (04:51→13:09)
[2024-10-09] MEDS: Digoxin 250 MCG/ML Ampul IV (04:52)
[2024-10-09] MEDS: Meropenem 1 GM in 0.9% Normal Saline (100mL MB+) 100 ML IV ×2 (05:00→13:11)
[2024-10-09 06:54] LABS: Absolute Lymphocyte Count 1.07 X10^3/uL (0.83-4.51); Absolute Neutrophil Count 11.6 X10^3/uL (2.0-7.7); Basophil# 0.07 X10^3/uL; Basophil% 0.4 % (0-1); Eosinophil# 4.34 X10^3/uL; Eosinophils% 22.9 % (0-5); Hematocrit 33.1 % (37-47); Hemoglobin 10.9 g/dL (12.0-15.0); Lymphocyte # 1.07 X10^3/ul (0.83-4.51); Lymphocyte % 5.6 % (19-41); Mean Corp Hgb Conc 32.9 g/dL (32-36); Mean Corpuscular Hgb 31.9 pg (27.0-32.0); Mean Corpuscular Volume 96.8 fL (81-99); Monocyte# 1.41 X10^3/uL; Monocyte% 7.4 % (0-10); NRBC Flagged by Analyzer 0.2 % (0-5); Neutrophil % 61.1 % (47-70); POSITIVE DIFFERENTIAL YES; POSITIVE MORPHOLOGY YES; Platelet Count 268 K/mm3 (150-450); RBC Distribution Width CV 17.1 % (11.6-14.6); RBC Distribution Width SD 60.4 fl (35.1-43.9); Red Blood Count 3.42 M/mm3 (4.2-5.4)
[2024-10-09 07:07] LABS: Partial Thromboplast Time 54.8 Seconds (24.1-36.2)
[2024-10-09 07:21] LABS: Differential Indicated SCAN CRITERIA MET
[2024-10-09 07:23] LABS: Differential Comment SCANNED
[2024-10-09] MEDS: Ipratropium/Albuterol Sulfate 3 ML AMPUL.NEB INHALATION ×2 (07:47→14:02)
[2024-10-09 07:48] LABS: Anion Gap 12 (5-15); BUN 25 mg/dL (7-18); BUN/Creat Ratio 34.6 RATIO (10-20); Calcium,Total 8.3 mg/dL (8.5-10.1); Chloride 108 mmol/L (98-107); Creatinine, Serum 0.72 mg/dL (0.55-1.02); EST Glomerular Filtration Rate 85 mL/min (>60); Est Glom Filt Rate - Afr Amer 103 mL/min (>60); Estimated Creatinine Clearance 59.97 ml/min; Glucose 105 mg/dL (74-106); Potassium 4.6 mmol/L (3.5-5.1); Sodium Level 134 mmol/L (136-145)
--- NOTE | 2024-10-09 08:15 | PN.HOSP_ITS ---
Reason for Visit Reason for Visit: Diagnoses Sepsis, unspecified organism (10/03/24) Elevated white blood cell count, unspecified (10/03/24) Dehydration (10/03/24) Hypo-osmolality and hyponatremia (10/03/24) Acidosis, unspecified (10/03/24) Hyperkalemia (10/03/24) Unspecified atrial fibrillation (10/03/24) Atherosclerosis of [place] arteries of extremities with rest pain, left leg (10/03/24) Atherosclerosis of [place] arteries of left leg with ulceration of other part of foot (10/03/24) Peripheral vascular disease, unspecified (10/03/24) Local infection of the skin and subcutaneous tissue, unspecified (10/03/24) Pressure ulcer of other site, unstageable (10/03/24) Non-pressure chronic ulcer of right calf with fat layer exposed (10/03/24) Non-pressure chronic ulcer of other part of left foot with unspecified severity (10/03/24) Non-pressure chronic ulcer of unspecified part of unspecified lower leg with unspecified severity (10/03/24) Other specified abnormal findings of blood chemistry (10/03/24) Other injury of unspecified body region, initial encounter (10/03/24) Tobacco use (10/03/24) Subjective Subjective More listless today. Objective Data Objective Data Vital Signs: Vital Signs Temp Pulse Resp BP Pulse Ox O2 Del Method O2 Flow Rate 36.3 C L 94 21 H 92/60 98 Nasal Cannula 3 10/09/24 07:00 10/09/24 07:00 10/09/24 07:00 10/09/24 07:00 10/09/24 07:00 10/09/24 07:00 10/09/24 07:00 Oxygen Flow Rate (L/min) 3 Oxygen Delivery Method Nasal Cannula Weight: 64.5 kg Body Mass Index (BMI) 25.2 Intake & Output: Intake and Output for Last 24 Hours 10/07/24 10/08/24 10/09/24 23:59 23:59 23:59 Intake Total 3876.88 / 3876.88 933.19 / 1063.19 315.99 / 315.99 Output Total 750 / 850 500 / 750 500 / 500 Balance 3126.88 / 3026.88 433.19 / 313.19 -184.01 / -184.01 Medical Nutrition Assessment Dietitian: Malnutrition Criteria Met Start: 10/04/24 16:30 Freq: Status: Active Protocol: Document 10/07/24 15:35 SB (Rec: 10/07/24 15:35 SB [id number]) Nutrition Malnutrition Evidence of Malnutrition Exists Yes Malnutrition (severe): Chronic Evidenced By Suboptimal Energy Intake ( Severe),Weight Loss (Severe), Physical Changes (Moderate) Clinical Problem Chronic Disease or Condition Related Malnutrition Etiology severe protein-calorie malnutrition in the context of chronic disease related to inadequate energy/oral intake Signs/Symptoms as evidenced by ~20% unintentional weight loss x less than 6 months, BMI 18.6 and PO meeting less than 50% estimated nutrition needs x 3- 4 months Status Active Problem Recommendation Dietitian Recommendations/Changes Recommend advanced diet as tolerated to liberalized Regular diet. As diet is advanced, continue Navjot BID with medpass to support wound healing and 240mL Ensure plus high protein w/ Breakfast and Dinner meals . Adjust ONS as needed to support weight gain. Reviewed and approved by Sanket Miller, MS, RDN, LD. Lab / Micro Data 10/09/24 06:45 10/09/24 06:45 Labs: Laboratory Results - last 24 hr 10/08/24 15:45: PT 15.0 H, INR 1.2, APTT 34.8 10/08/24 22:40: APTT > 200.0 H* 10/09/24 06:45: WBC 19.0 H, RBC 3.42 L, Hgb 10.9 L, Hct 33.1 L, MCV 96.8, MCH 31.9, MCHC 32.9, RDW Std Deviation 60.4 H, RDW Coeff of Lisbeth 17.1 H, Plt Count 268, MPV 10.0, Immature Gran % (Auto) 2.600 H, Neut % (Auto) 61.1, Lymph % (Auto) 5.6 L, [place] % (Auto) 7.4, Eos % (Auto) 22.9 H, Baso % (Auto) 0.4, A bsolute Neuts (auto) 11.6 H, Absolute Lymphs (auto) 1.07, Nucleated RBC % 0.2, Differential Comment SCANNED, APTT 54.8 H, Sodium 134 L, Potassium 4.6, Chloride 108 H, Carbon Dioxide 14.0 L, Anion Gap 12, BUN 25 H, Creatinine 0.72, Estim Creat Clear Calc 59.97, Est GFR (MDRD) Af Amer 103, Est GFR (MDRD) Non-Af 85, B UN/Creatinine Ratio 34.6 H, Glucose 105, Calcium 8.3 L Micro: Microbiology 10/07/24 09:27 Wound - Left Foot Gram Stain - Final 10/07/24 09:27 Wound - Left Foot Wound Culture - Preliminary Mixed Gram Pos & Gram Neg Org 10/07/24 09:27 Wound - Left Foot Anaerobic Culture - Preliminary Checking for anaerobes, further studies to follow. 10/07/24 09:27 Wound Abcess - Aerobic & Anaerobic Swabs Gram Stain - Final 10/07/24 09:27 Wound Abcess - Aerobic & Anaerobic Swabs Wound Culture - Preliminary Mixed Gram Pos & Gram Neg Org 10/07/24 09:27 Wound Abcess - Aerobic & Anaerobic Swabs Anaerobic Culture - Preliminary Checking for anaerobes, further studies to follow. 10/07/24 09:27 Tissue - Leg, Left Gram Stain - Final 10/07/24 09:27 Tissue - Leg, Left Wound Culture - Preliminary Mixed Gram Pos & Gram Neg Org 10/07/24 09:27 Tissue - Leg, Left Anaerobic Culture - Preliminary Checking for anaerobes, further studies to follow. 10/03/24 19:45 Wound - Left Foot Gram Stain - Final 10/03/24 19:45 Wound - Left Foot Wound Culture - Final ESBL Escherichia coli Providencia rettgeri Pseudomonas spp 10/03/24 16:37 Urine, Catheterized Urine Culture - Final ESBL Escherichia coli Corynebacterium amycolatum Lactobacillus casei 10/03/24 16:37 Blood Culture (Wb) - Left Forearm Blood Culture - Preliminary No growth in 48 hours. 10/03/24 15:57 Blood Culture (Wb) - Right Forearm Blood Culture - Preliminary No growth in 48 hours. 10/03/24 19:45 Wound - Left Foot Skin and Soft Tissue MRSA/MSSA (PCR - Final Rhythm Strip Rhythm Strip: A-fib Rate: 165 Ectopy: None Physical Exam Const Constitutional Narrative: awake, listless. confused. afebrile. HEENT head/scalp atraumatic Eyes Eyes Narrative: no icterus Resp normal respiratory effort, no retractions, no use of accessory muscles and clear to auscultation bilaterally Cardio regular rate, regular rhythm, S1 normal heart sound and S2 normal heart sound GI normal to inspection, nondistended, normoactive bowel sounds, soft to palpation, non-tender and non-distended Extremity Extremity Narrative: cyanosis of fingers and right toes. Left foot in wrap with wound vac. Psych Psych Narrative: listless. Assessment & Plan Assessment/Plan (1) Peripheral vascular disease of lower extremity with ulceration: (2) Wound infection: (3) Sepsis: (4) Atrial fibrillation with RVR: PLAN: Plan Sepsis * POA, since resolved. Though overall she appears worse with noted cyanosis of hands now. Will give an additional liter of IVF. * secondary to bilateral lower extremity wound infection from vascular disease * Meet sepsis criteria with tachycardia, suspected JOHNATHON, lactic acidosis and source LLE ulcerations * extensive distally and posteriorly * likely a combination of vascular and pressure-related. * pt underwent debridement of wounds on 10/07. DW Dr. Velazquez, pt had an abscess that was below the fascia that he was able to clean up. He plan to take patient back to surgery on 10/10. Excisoin of LLE wound [id number]. I+D of deep space abscess * Wound cultures growing out ESBL E. coli, Providencia rettgeri, Pseudomonas * continue current abx with meropenem and vancomycin A-fib with RVR * echo shows an EF 62%. No regional wall motion abnormalities. * PO metoprolol 50 BID. Started back on diltiazem gtt, since weaned off. * heparin gtt (Hg stable post-op) * cardiology consulted Hyponatremia * suspect hypovolemic hyponatremia improved with IVF. * Monitor Hyperkalemia * resolved with IVF. Cardiac mass * 2d Echo showed a ventricular septum mobile material 0.5 x 0.4 cm. * cannot rule out endocarditis, though BCx negative from the * Will need follow up as outpt Elevated troponin * Mild at 55. Resolved. Peripheral vascular disease * Patient was placed on Plavix, aspirin, Pletal, and rosuvastatin. Does not appear to be taking any of these. Start aspirin 81 mg daily and will hold off her Plavix for now. * Seen by vascular surgery. Plan for angiogram to LLE, but high concern pt will require amputation. * Plan for angiography in the future. Generalized weakness/debility * PT/OT consultation * Social work/case management consultation as I do highly anticipate patient will likely need placed at discharge Alcohol use * CIWA protocol. DVT prophylaxis: not indicated as pt is anticoagulated Prognosis guarded. Charges/Coding Visit Charges Inpatient E&M: 17310 Subs Hosp L3
[2024-10-09] MEDS: Menthol/Lanolin/Calamine/Znox 113 GM Tube 1 APPLIC TOPICAL (10:57)
[2024-10-09] MEDS: Collagenase 30gm Tube 1 APPLIC TOPICAL (10:58)
--- NOTE | 2024-10-09 12:08 | PN_ITS ---
Subjective Subjective Diltiazem ggt held for soft blood pressures this morning, but rate only in low 100s. Hgb stable. No concern for bleeding. Patient has been quite with horse voice, but arousable on rounds today and appears alert and oriented. Able to agree that pain is better. Objective Data Objective Data Vital Signs: Vital Signs Temp Pulse Resp BP Pulse Ox O2 Del Method O2 Flow Rate 97.8 F 93 31 H 88/71 L 93 Nasal Cannula 3 10/09/24 11:00 10/09/24 11:00 10/09/24 11:00 10/09/24 11:00 10/09/24 11:00 10/09/24 11:00 10/09/24 11:00 Oxygen Flow Rate (L/min) 3 Oxygen Delivery Method Nasal Cannula Weight: 142 lb 3.17 oz Body Mass Index (BMI) 25.2 Intake & Output: Intake and Output for Last 24 Hours 10/07/24 10/08/24 10/09/24 23:59 23:59 23:59 Intake Total 3876.88 / 3876.88 933.19 / 1063.19 465.99 / 465.99 Output Total 750 / 850 500 / 750 550 / 550 Balance 3126.88 / 3026.88 433.19 / 313.19 -84.01 / -84.01 Medical Nutrition Assessment Dietitian: Malnutrition Criteria Met Start: 10/04/24 16:30 Freq: Status: Active Protocol: Document 10/07/24 15:35 SB (Rec: 10/07/24 15:35 SB [id number]) Nutrition Malnutrition Evidence of Malnutrition Exists Yes Malnutrition (severe): Chronic Evidenced By Suboptimal Energy Intake ( Severe),Weight Loss (Severe), Physical Changes (Moderate) Clinical Problem Chronic Disease or Condition Related Malnutrition Etiology severe protein-calorie malnutrition in the context of chronic disease related to inadequate energy/oral intake Signs/Symptoms as evidenced by ~20% unintentional weight loss x less than 6 months, BMI 18.6 and PO meeting less than 50% estimated nutrition needs x 3- 4 months Status Active Problem Recommendation Dietitian Recommendations/Changes Recommend advanced diet as tolerated to liberalized Regular diet. As diet is advanced, continue Navjot BID with medpass to support wound healing and 240mL Ensure plus high protein w/ Breakfast and Dinner meals . Adjust ONS as needed to support weight gain. Reviewed and approved by Sanket Miller, MS, RDN, LD. Lab / Micro Data 10/09/24 06:45 10/09/24 06:45 Labs: Laboratory Results - last 24 hr 10/08/24 15:45: PT 15.0 H, INR 1.2, APTT 34.8 10/08/24 22:40: APTT > 200.0 H* 10/09/24 06:45: WBC 19.0 H, RBC 3.42 L, Hgb 10.9 L, Hct 33.1 L, MCV 96.8, MCH 31.9, MCHC 32.9, RDW Std Deviation 60.4 H, RDW Coeff of Lisbeth 17.1 H, Plt Count 268, MPV 10.0, Immature Gran % (Auto) 2.600 H, Neut % (Auto) 61.1, Lymph % (Auto) 5.6 L, [place] % (Auto) 7.4, Eos % (Auto) 22.9 H, Baso % (Auto) 0.4, A bsolute Neuts (auto) 11.6 H, Absolute Lymphs (auto) 1.07, Nucleated RBC % 0.2, Differential Comment SCANNED, APTT 54.8 H, Sodium 134 L, Potassium 4.6, Chloride 108 H, Carbon Dioxide 14.0 L, Anion Gap 12, BUN 25 H, Creatinine 0.72, Estim Creat Clear Calc 59.97, Est GFR (MDRD) Af Amer 103, Est GFR (MDRD) Non-Af 85, B UN/Creatinine Ratio 34.6 H, Glucose 105, Calcium 8.3 L Micro: Microbiology 10/07/24 09:27 Wound Abcess - Aerobic & Anaerobic Swabs Gram Stain - Final 10/07/24 09:27 Wound Abcess - Aerobic & Anaerobic Swabs Wound Culture - Preliminary Gram negative yakelin Gram negative yakelin#2 Gram negative yakelin#3 Gram positive organism 10/07/24 09:27 Wound Abcess - Aerobic & Anaerobic Swabs Anaerobic Culture - Preliminary Checking for anaerobes, further studies to follow. 10/07/24 09:27 Wound - Left Foot Gram Stain - Final 10/07/24 09:27 Wound - Left Foot Wound Culture - Preliminary Gram negative yakelin Gram negative yakelin#2 Gram negative yakelin#3 Gram positive organism 10/07/24 09:27 Wound - Left Foot Anaerobic Culture - Preliminary Checking for anaerobes, further studies to follow. 10/07/24 09:27 Tissue - Leg, Left Gram Stain - Final 10/07/24 09:27 Tissue - Leg, Left Wound Culture - Preliminary Gram negative yakelin GNR lactose veneer slicing machine operator Staphylococcus species 10/07/24 09:27 Tissue - Leg, Left Anaerobic Culture - Preliminary Checking for anaerobes, further studies to follow. 10/03/24 19:45 Wound - Left Foot Gram Stain - Final 10/03/24 19:45 Wound - Left Foot Wound Culture - Final ESBL Escherichia coli Providencia rettgeri Pseudomonas spp 10/03/24 16:37 Urine, Catheterized Urine Culture - Final ESBL Escherichia coli Corynebacterium amycolatum Lactobacillus casei 10/03/24 16:37 Blood Culture (Wb) - Left Forearm Blood Culture - Preliminary No growth in 48 hours. 10/03/24 15:57 Blood Culture (Wb) - Right Forearm Blood Culture - Preliminary No growth in 48 hours. 10/03/24 19:45 Wound - Left Foot Skin and Soft Tissue MRSA/MSSA (PCR - Final Rhythm Strip Rhythm Strip: A-fib Rate: 165 Ectopy: None Physical Exam Narrative Left Lower Extremity: VAC holding suction, no blood in the VAC. No signs of bleeding in the VAC. VeraFlow setting on with Dakins irrigation. Left distal toes with persistent ischemic disease, no change. 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 NPO at midnight Plastics will continue to follow and assist vascular surgery/internal medicine with her care. Charges/Coding Procedures Integumentary [id number]: [id number] Global Visit
[2024-10-09 12:51] LABS: Partial Thromboplast Time 51.3 Seconds (24.1-36.2)
[2024-10-09] MEDS: 0.9% Normal Saline (1000mL) 1,000 ML 150 ML IV (13:13)
--- NOTE | 2024-10-09 15:46 | PCM.HOSP.N ---
Hospitalist Note Advance care planning: Spent additional 30 minutes contacted the patient's who said he was coming to the hospital. He arrives and patient by the time he arrived was low bit more alert but still having cyanosis of her digits. Discussed with her that she has a very complicated case and she is worse today. I talked to him about CODE STATUS and before I can even make mention of CPR was involved with that, he stated that she would not survive it and he would not want her to have it. So patient is DNR Comfort Care arrest. Additionally he would like to see the patient doing better before undergoing any additional surgery. Tentatively patient was to undergo additional surgery on the . He stated he did not want the patient to have surgery tomorrow because of how poorly she is doing. I sent a message to Dr. Velazquez about the 's request. Procedures Hospitalists Procedures: 20060 Critical Care Addl 30 Min
[2024-10-09 17:06] LABS: Vancomycin, Trough Level 23.4 ug/mL (5.0-15.0)
--- NOTE | 2024-10-09 17:14 | PCM.RX.CS ---
Consult Antibiotic Management Pharmacy has been consulted to manage selected antibiotic: Vancomycin Type of Intervention Type of Consult: Follow-up Labs Labs: Sodium 134 mmol/L (136-145) L 10/09/24 06:45 Potassium 4.6 mmol/L (3.5-5.1) 10/09/24 06:45 Chloride 108 mmol/L (98-107) H 10/09/24 06:45 Carbon Dioxide 14.0 mmol/L (21.0-32.0) L 10/09/24 06:45 Anion Gap 12 (5-15) 10/09/24 06:45 BUN 25 mg/dL (7-18) H 10/09/24 06:45 Creatinine 0.72 mg/dL (0.55-1.02) 10/09/24 06:45 Est GFR (MDRD) Af Amer 103 mL/min (>60) 10/09/24 06:45 Est GFR (MDRD) Non-Af 85 mL/min (>60) 10/09/24 06:45 BUN/Creatinine Ratio 34.6 RATIO (10-20) H 10/09/24 06:45 Glucose 105 mg/dL (74-106) 10/09/24 06:45 Vancomycin Trough 23.4 ug/mL (5.0-15.0) H 10/09/24 16:16 Microbiology Microbiology: Microbiology 10/03/24 16:37 Blood Culture (Wb) - Left Forearm Blood Culture - Final No growth in 5 days. 10/03/24 15:57 Blood Culture (Wb) - Right Forearm Blood Culture - Final No growth in 5 days. 10/07/24 09:27 Wound Abcess - Aerobic & Anaerobic Swabs Gram Stain - Final 10/07/24 09:27 Wound Abcess - Aerobic & Anaerobic Swabs Wound Culture - Preliminary Gram negative yakelin Gram negative yakelin#2 Gram negative yakelin#3 Gram positive organism 10/07/24 09:27 Wound Abcess - Aerobic & Anaerobic Swabs Anaerobic Culture - Preliminary Checking for anaerobes, further studies to follow. 10/07/24 09:27 Wound - Left Foot Gram Stain - Final 10/07/24 09:27 Wound - Left Foot Wound Culture - Preliminary Gram negative yakelin Gram negative yakelin#2 Gram negative yakelin#3 Gram positive organism 10/07/24 09:27 Wound - Left Foot Anaerobic Culture - Preliminary Checking for anaerobes, further studies to follow. 10/07/24 09:27 Tissue - Leg, Left Gram Stain - Final 10/07/24 09:27 Tissue - Leg, Left Wound Culture - Preliminary Gram negative yakelin GNR lactose brake operator helper Staphylococcus species 10/07/24 09:27 Tissue - Leg, Left Anaerobic Culture - Preliminary Checking for anaerobes, further studies to follow. 10/03/24 19:45 Wound - Left Foot Gram Stain - Final 10/03/24 19:45 Wound - Left Foot Wound Culture - Final ESBL Escherichia coli Providencia rettgeri Pseudomonas spp 10/03/24 16:37 Urine, Catheterized Urine Culture - Final ESBL Escherichia coli Corynebacterium amycolatum Lactobacillus casei 10/03/24 19:45 Wound - Left Foot Skin and Soft Tissue MRSA/MSSA (PCR - Final Pharmacy Plan for Drug Dosing Pharmacy Plan for Drug Dosing: VANCOMYCIN LEVEL RECEIVED Current Vancomycin Dose: 1250MG Q24 Number of Doses Received: 6 Vancomycin Level: 23.4 MG/DL Hours Since Last Dose: 22.5 Renal Function: SCR 0.72 MG/DL Renal Function Trend: STABLE Lab/Micro: GRAM (+) ORGANISM IN WOUND CX Vancomycin Plan/Comments: 22.5 hour trough is supratherapeutic at 23.4 mg/dl (goal 15-20). Will hold dosing for now and get a random level in 8 hours. Pending Level: 10/10/24 @ 0000 Pharmacy Service will continue to monitor and adjust dosing as required.
[2024-10-09] MEDS: LORazepam 0.5 MG Tablet PO (17:31)
[2024-10-09] MEDS: Gabapentin 100 MG Capsule PO (17:31)
--- NOTE | 2024-10-09 18:12 | NURSING ---
Provided second verification of cessation of heart tones and rise of chest with Gilma Nelson RN. Time of 1811.
--- NOTE | 2024-10-09 18:20 | NURSING ---
Notified of patient's passing. Family does not wish to visit at this time. home selection made by the .
--- NOTE | 2024-10-09 19:00 | EXP.PCM_ITS ---
Preliminary Cause of Preliminary Cause of Preliminary Cause of : Sepsis. Infected LLE ulceration with abscess. Date of Admission: 10/03/24 Date of : 10/09/24 (1814) Principle Diagnosis Problem List: Active and Suspected Problems (Updated 10/07/24 @ 13:38 by Yamilka Lewis) Ischemic ulcer of left foot due to atherosclerosis (Acute) Pressure ulcer of left leg, unstageable (Acute) Leukocytosis (Acute) Dehydration (Acute) Elevated troponin (Acute) Lactic acidosis (Acute) Hyperkalemia (Acute) Elevated serum creatinine (Acute) Hyponatremia (Acute) Tobacco abuse (Acute) Peripheral vascular disease of lower extremity with ulceration (Acute) Wound infection (Acute) Sepsis (Acute) Atrial fibrillation with RVR (Acute) Atherosclerosis of left lower extremity with rest pain (Acute) PAD (peripheral artery disease) (Acute) Hospital Course Patient presents with shortness of breath. She was found to be in sepsis from BLE, but primarily her left, which was extensive. She received 30cc/kg of IVF and was started on empiric broad spectrum antibiotics. Complicating her LE wounds was severe PAD. Vascular, podiatry and Plastics were consulted. Patient underwent an extensive debridemnent of the LLE wound as well as an I+D of a deep abscess on the . Wound vac was placed. Plan was for the pt to undergo further revision on the . However, it was noted that the patient's fingers were cyanotic. I called the patient's and spoke to him later when he arrived. I told him was concerned about the cyanosis and her lethargy (which was slightly improved when he arrived). I addressed Code status and without me even going into details about CPR, he said she wouldn't survive it and would not want it for her. So, patient was changed from Full code to DNR CCA. Later in the day, the patient went into PEA and was pronounced at 1815 on 10/09/2024. Additionally during the hospitalization, the patient developed afib with RVR and was started on a diltiazem gtt and cardiology was involved. 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 Endocarditis could not be ruled in nor out , though her blood cultures were negative. Visit Charges Inpatient E&M: 64580 Disch Hosp >30min
== END 2024-10-09 18:15 | DRG 853 ==
LOC: ED 18:18 → PCU 19:19
PROVIDERS: Internal Medicine; Internal Medicine Infectious Disease; Surgery Plastic and Reconstructive Surgery; Admitting Provider Internal Medicine; Emergency Provider Emergency Medicine; PCP Family Medicine
DX: A41.9 Sepsis, unspecified organism (principal); E43 Unspecified severe protein-calorie malnutrition; I70.262 Atherosclerosis of native arteries of extremities with gangrene, left leg; I70.261 Atherosclerosis of native arteries of extremities with gangrene, right leg; L97.212 Non-pressure chronic ulcer of right calf with fat layer exposed; E87.1 Hypo-osmolality and hyponatremia; N17.9 Acute kidney failure, unspecified; L97.528 Non-pressure chronic ulcer of other part of left foot with other specified severity; E87.20 Acidosis, unspecified; Z68.1 Body mass index [BMI] 19.9 or less, adult; L02.416 Cutaneous abscess of left lower limb; Z66 Do not resuscitate; E86.0 Dehydration; I34.1 Nonrheumatic mitral (valve) prolapse; F10.10 Alcohol abuse, uncomplicated; I11.9 Hypertensive heart disease without heart failure; L89.890 Pressure ulcer of other site, unstageable; I48.0 Paroxysmal atrial fibrillation; E87.5 Hyperkalemia; F17.210 Nicotine dependence, cigarettes, uncomplicated; E86.1 Hypovolemia; I73.1 Thromboangiitis obliterans [Buerger's disease]; R53.81 Other malaise; Z88.0 Allergy status to penicillin; Z79.899 Other long term (current) drug therapy; Z79.82 Long term (current) use of aspirin; Z91.199 Patient's noncompliance with other medical treatment and regimen due to unspecified reason; Z91.148 Patient's other noncompliance with medication regimen for other reason
CPT/HCPCS: 36415; 71045; 73590; 73630; 75635; 80048; 80053; 80061; 80076; 80202; 81001; 82550; 83605; 83735; 83930; 83935; 84100; 84300; 84443; 84484; 84550; 85025; 85610; 85730; 87015; 87040; 87070; 87075; 87077; 87086; 87088; 87102; 87116; 87176; 87184; 87186; 87205; 87206; 87640; 88305; 88312; 88341; 88342; 93005; 93306; 93922; 94640; 94762; 97110; 97162; 97166; 97530; 97535; 97802; 97803; 99252; 99285; 99406; J2185; P9612; Q9967; A4216; G0463; J2405